=== PATIENT | female | born 1960 | race Hispanic/Latino ===

== ENCOUNTER 2023-06-21 12:56 | Emergency (ER) | payer SELFPAY ==
--- OUTSIDE RECORDS SUMMARY | 2023-06-21 13:04 | XMS REPORT | Continuity of Care Document ---
:1960 Author Organization [facility] t Address [address] [facility] [address] [place] [address] Care Team Providers Name Role Phone Alea Carmichael Primary Care Physician TEMITOPE TRONCOSO Attending Clinician Unavailable SHAHZAD MUELLER Attending Clinician Unavailable WALE ROMERO Attending Clinician Unavailable Ada Cuba MA Attending Clinician Unavailable Maximino Manning MA Attending Clinician Unavailable Guerda Montaño MA Attending Clinician Unavailable Rylee Davila LVN Attending Clinician Unavailable 1, Utp Interventional Consult Attending Clinician UnavailDotty Reece LVN Attending Clinician Unavailable Yaakov THAYER, Provider Not In Attending Clinician Unavailable Alea Carmichael Attending Clinician Temitope Troncoso MD Admitting Clinician Payers Payer Name Policy Type Policy Number Effective Date Expiration Date Cami KULKARNI [id number] 2020 2024 HEALTH PLAN 00:00:00 00:00:00 Problems Condition Condition Condition Status Onset Resolution Last Treating Co mments Source Name Details Category Date Date Treatment Clinician Date GAIT GAIT Diagnosis Active 2021-01-31 Mem oria DIFFICULTY DIFFICULTY 01-28 09:16:00 l Active 00:00: Glen 01/28/2021 00 [facility] CIDP CIDP Diagnosis Active 2020-11-21 Mem oria EXACERBATI EXACERBATI 11-07 21:54:00 l ON ON Active 00:00: Glen 11/07/2020 00 [facility] No known No known Disease [place] active active Health problems problems ILLNESS, ILLNESS, Diagnosis Active 2020-11-21 Memoria UNSPECIFIE UNSPECIFIE 21:54:00 l D D Active [facility] Hyperchole Hyperchole Problem Active C ommon steremia steremia [facility] External External Problem Active Commo n hemorrhoid hemorrhoid Sp milagros [facility] History of History of Diagnosis Active Common hysterecto hysterecto Sp milagros my my [facility] Language Language Problem Active Commo n barrier barrier [facility] Well woman Well woman Diagnosis Active Common exam with exam with Spir it routine [facility] gynecologi gynecologi [facility] virgilio exam virgilio exam [facility] Allergies, Adverse Reactions, Alerts Allergy Allergy Status Severity Reaction(s) Onset Inactive Treating Comm ents Source Name Type Date Date Clinician Penicill Propensi Active ins - ty to 8 CLASS adverse 00:00: reaction 00 to drug Penicill Allergy Active Itching Also, [facility] ins to 01-01 Swelling Health substanc 00:00: and Hives e 00 PCN Adverse Active Info Not Common Reaction Available Spiri t [facility] Social History Social Habit Start Date Stop Date Quantity Comments Source Sexual orientation [facility] Exposure to 2022-10-18 2022-10-28 Not sure [facility] SARS-CoV-2 (event) 00:00:00 14:08:00 History of Social 2022-07-01 2022-07-01 [facility] function 00:00:00 00:00:00 Alcohol intake 2021-04-12 2021-04-12 Lifetime [facility] 00:00:00 00:00:00 non-drinker (finding) Tobacco use and 2021-01-01 2021-01-01 Smokeless tobacco [facility] exposure 00:00:00 00:00:00 non-user Sex Assigned At [birth year] [facility] 00:[facility] 00:00:00 Smoking Status Start Date Stop Date Source Tobacco smoking consumption unknown [facility] Never smoked tobacco [facility] Medications Ordered Filled Start Stop Current Ordering Indication Dosage Frequency Signature Comments Components Source Medication Medication Date Date Medication? Clinician (SIG) Name Name pantoprazol 2022- No 40mg Take 40 mg UT e 04-28 by mouth 1 Health (ProtoNix) 22:53: 00:00 (one) time 40 MG EC 38 :00 each day tablet before breakfast. cetirizine Yes 10mg QD Take 10 mg U T (ZyrTEC) 10 9- by mouth 1 He alth MG tablet 13:38: (one) time 18 each day. traMADol Yes [id number] 50mg QD Take 1 UT (Ultram) 50 04-28 tablet (50 He alth MG tablet 00:00: mg total) 00 by mouth 1 (one) time each day. pregabalin Yes [id number] 150mg Q.[id number] Take 1 UT (Lyrica) 04-28 [id number] capsule He alth 150 MG 00:00: 3D (150 mg capsule 00 total) by mouth in the morning and 1 capsule (150 mg total) at noon and 1 capsule (150 mg total) in the evening. pantoprazol Yes [id number] 40mg Take 1 UT e 04-28 tablet (40 Health (ProtoNix) 00:00: mg total) 40 MG EC 00 by mouth 1 tablet (one) time each day before breakfast. Take 40 mg by mouth 1 (one) time each day before breakfast. pregabalin 2022- No [id number] 150mg Q.[id number] Take 1 UT (Lyrica) 12-25 [id number] capsule H ealth 150 MG 00:00: 00:00 3D (150 mg capsule 00 :00 total) by mouth in the morning and 1 capsule (150 mg total) at noon and 1 capsule (150 mg total) in the evening. cetirizine Yes 10mg QD Take 10 mg U T (ZyrTEC) 10 3-28 by mouth 1 He alth MG tablet 14:18: (one) time 46 each day. traMADol 2021-08 Yes [id number] 50mg QD Take 1 UT (Ultram) 50 1-29 tablet (50 He alth MG tablet 00:00: mg total) 00 by mouth 1 (one) time each day. traMADol 2021-08- No [id number] 50mg QD Take 1 UT (Ultram) 50 1-29 09-26 tablet (50 H ealth MG tablet 00:00: 00:00 mg total) 00 :00 by mouth 1 (one) time each day. pregabalin 2021-08 Yes [id number] TAKE ONE UT (Lyrica) 1-23 CAPSULE BY Healt h 150 MG 00:00: MOUTH capsule 00 THREE TIMES A DAY pantoprazol Yes 40mg Take 40 mg UT e 03-11 by mouth 1 Health (ProtoNix) 14:13: (one) time 40 MG EC 54 each day tablet before breakfast. Do not crush, chew, or split. traMADol 2021- No Take by UT (Ultram) 50 03-11- mouth. Healt h MG tablet 14:13: 00:00 42 :00 predniSONE 2021- No 20mg QD Take 20 mg UT (Deltasone) 03-11 by mouth 1 H ealth 20 MG 14:13: 00:00 (one) time tablet 24 :00 each day. cyclobenzap 2021- No Take by UT rine 03-11- mouth. Health (Flexeril) 14:13: 00:00 5 MG tablet 12 :00 doxycycline 2021- No 100mg Q.5D Take 100 UT (Vibramycin 03-11- mg by Health ) 100 MG 14:13: 00:00 mouth 2 capsule 09 :00 (two) times a day. Take with at least 8 ounces (large glass) of water, do not lie down for 30 minutes after FLUoxetine 2021- No 20mg QD Take 20 mg UT (PROzac) 20 03-11 by mouth 1 H ealth MG capsule 14:13: 00:00 (one) time 06 :00 each day. meloxicam 2021- No 7.5mg QD Take 7.5 UT (Mobic) 7.5 03-11- mg by Health MG tablet 14:13: 00:00 mouth 1 03 :00 (one) time each day. ibuprofen 2021- No 400mg Q6H Take 400 UT 400 MG 03-11-09 mg by Health tablet 14:12: 00:00 mouth 57 :00 every 6 (six) hours if needed for moderate pain. montelukast 2021- No 10mg Take 10 mg UT (Singulair) 03-11 by mouth Hea lth 10 MG 14:12: 00:00 every tablet 53 :00 night. ALPRAZolam 2021- No .5mg QD Take 0.5 UT (Xanax) 0.5 03-11 mg by Health MG tablet 14:12: 00:00 mouth at 29 :00 night if needed for anxiety. atorvastati 2021- No 40mg QD Take 40 mg UT n (Lipitor) 03-11 by mouth 1 H ealth 10 MG 14:12: 00:00 (one) time tablet 26 :00 each day. acetaminoph 2021- No Q6H Take by UT en 03-11 mouth Health (Tylenol) 14:12: 00:00 every 6 500 MG 01 :00 (six) tablet hours if needed for mild pain. traMADol 2021- No [id number] 50mg QD Take 1 U T (Ultram) 50 02-06- tablet (50 H ealth MG tablet 00:00: 04:59 mg total) 00 :00 by mouth 1 (one) time each day. traMADol 2021- No [id number] 50mg QD Take 1 U T (Ultram) 50 02-06-06 tablet (50 H ealth MG tablet 00:00: 04:59 mg total) 00 :00 by mouth 1 (one) time each day. doxycycline 2021-0 Yes 100mg Q.5D Take 100 U T (Vibramycin 5-24 mg by Health ) 100 MG 08:50: mouth 2 capsule 18 (two) times a day. Take with at least 8 ounces (large glass) of water, do not lie down for 30 minutes after ibuprofen 2021-0 Yes 400mg Q6H Take 400 UT 400 MG 5-24 mg by Health tablet 08:50: mouth 18 every 6 (six) hours if needed for moderate pain. pantoprazol 2021-0 Yes 40mg Take 40 mg UT e 5-24 by mouth 1 Health (ProtoNix) 08:50: (one) time 40 MG EC 18 each day tablet before breakfast. Do not crush, chew, or split. montelukast 2021-0 Yes 10mg Take 10 mg UT (Singulair) 5-24 by mouth Heal th 10 MG 08:50: every tablet 18 night. cyclobenzap 2021-0 Yes Take by UT rine 5-24 mouth. Health (Flexeril) 08:50: 5 MG tablet 18 FLUoxetine 2021-0 Yes 20mg QD Take 20 mg U T (PROzac) 20 5-24 by mouth 1 He alth MG capsule 08:50: (one) time 18 each day. meloxicam 2021-0 Yes 7.5mg QD Take 7.5 UT (Mobic) 7.5 5-24 mg by Health MG tablet 08:50: mouth 1 18 (one) time each day. atorvastati 2021-0 Yes 40mg QD Take 40 mg UT n (Lipitor) 5-24 by mouth 1 He alth 10 MG 08:50: (one) time tablet 18 each day. predniSONE 2021-0 Yes 20mg QD Take 20 mg U T (Deltasone) 5-24 by mouth 1 He alth 20 MG 08:49: (one) time tablet 15 each day. acetaminoph 2021-0 Yes Q6H Take by UT en 5-24 mouth Health (Tylenol) 08:49: every 6 500 MG 15 (six) tablet hours if needed for mild pain. traMADol 2021-0 Yes Take by UT (Ultram) 50 5-24 mouth. Health MG tablet 08:49: 15 ALPRAZolam 2021-0 Yes .5mg QD Take 0.5 UT (Xanax) 0.5 5-03 mg by Health MG tablet 14:43: mouth at 39 night if needed for anxiety. pregabalin 2021-0 2022- No [id number] 150mg Q.[id number] Take 1 UT (Lyrica) 3-26 09-23 [id number] capsule H ealth 150 MG 00:00: 04:59 3D (150 mg capsule 00 :00 total) by mouth 3 (three) times a day. pregabalin 2021- No [id number] 150mg Q.[id number] Take 1 UT (Lyrica) 3 0923 [id number] capsule H ealth 150 MG 00:00: 04:59 3D (150 mg capsule 00 :00 total) by mouth 3 (three) times a day. Dose No Unknown 1-27 00:00: 00 Vitamin D3 No 1(2,000 50 mcg 1-27 unit) (2,000 00:00: unit) 00 tablet Vitamin D3 No 1(1,000 25 mcg 1-26 unit) (1,000 00:00: unit) 00 capsule Vitamin D3 No 1(1,000 25 mcg 1-26 unit) (1,000 00:00: unit) 00 capsule Dose No Unknown 1-24 00:00: 00 atorvastati No 1mg n 40 mg 1-24 tablet 00:00: 00 pregabalin 0 Yes 75mg QD Take 75 mg U T (Lyrica) 75 9-08 by mouth 1 He alth MG capsule 15:04: (one) time 08 each day. gabapentin Yes 300mg Q.5D Take 300 UT (Neurontin) 9-08 mg by Health 300 MG 15:04: mouth 2 capsule 08 (two) times a day. meloxicam Yes 7.5mg QD Take 7.5 UT (Mobic) 7.5 9-08 mg by Health MG tablet 15:04: mouth 1 08 (one) time each day. No known No No known [facility] medications 9-08 medication He alth 10:04: s 10 pregabalin 0 Yes 75mg QD Take 75 mg U T (Lyrica) 75 9-08 by mouth 1 He alth MG capsule 10:04: (one) time 08 each day. gabapentin 0 Yes 300mg Q.5D Take 300 UT (Neurontin) 9-08 mg by Health 300 MG 10:04: mouth 2 capsule 08 (two) times a day. meloxicam 2021-0 Yes 7.5mg QD Take 7.5 UT (Mobic) 7.5 9-08 mg by Health MG tablet 10:04: mouth 1 08 (one) time each day. acetaminoph 2021-0 Yes Q6H Take by UT en 9-08 mouth Health (Tylenol) 10:04: every 6 500 MG 08 (six) tablet hours if needed for mild pain. traMADol 2021-0 Yes Take by UT (Ultram) 50 9-08 mouth. Health MG tablet 10:04: 08 atorvastati 2021-0 Yes 40mg QD Take 40 mg UT n (Lipitor) 9-08 by mouth 1 He alth 10 MG 10:04: (one) time tablet 08 each day. pregabalin 2021-0 Yes 75mg QD Take 75 mg U T (Lyrica) 75 9-08 by mouth 1 He alth MG capsule 10:04: (one) time 08 each day. gabapentin 2021-0 Yes 300mg Q.5D Take 300 UT (Neurontin) 9-08 mg by Health 300 MG 10:04: mouth 2 capsule 08 (two) times a day. meloxicam 2021-0 Yes 7.5mg QD Take 7.5 UT (Mobic) 7.5 9-08 mg by Health MG tablet 10:04: mouth 1 08 (one) time each day. acetaminoph 2021-0 Yes Q6H Take by UT en 9-08 mouth Health (Tylenol) 10:04: every 6 500 MG 08 (six) tablet hours if needed for mild pain. traMADol 1-0 Yes Take by UT (Ultram) 50 9-08 mouth. Health MG tablet 10:04: 08 atorvastati 2021-0 Yes 40mg QD Take 40 mg UT n (Lipitor) 9-08 by mouth 1 He alth 10 MG 10:04: (one) time tablet 08 each day. pregabalin 2021-0 Yes 75mg QD Take 75 mg U T (Lyrica) 75 9-08 by mouth 1 He alth MG capsule 10:04: (one) time 08 each day. gabapentin 2021-0 Yes 300mg Q.5D Take 300 UT (Neurontin) 9-08 mg by Health 300 MG 10:04: mouth 2 capsule 08 (two) times a day. meloxicam 2021-0 Yes 7.5mg QD Take 7.5 UT (Mobic) 7.5 9-08 mg by Health MG tablet 10:04: mouth 1 08 (one) time each day. acetaminoph 2021-0 Yes Q6H Take by UT en 9-08 mouth Health (Tylenol) 10:04: every 6 500 MG 08 (six) tablet hours if needed for mild pain. traMADol 2021-0 Yes Take by UT (Ultram) 50 9-08 mouth. Health MG tablet 10:04: 08 atorvastati 2021-0 Yes 40mg QD Take 40 mg UT n (Lipitor) 9-08 by mouth 1 He alth 10 MG 10:04: (one) time tablet 08 each day. pregabalin 2021-0 Yes 75mg QD Take 75 mg U T (Lyrica) 75 9-08 by mouth 1 He alth MG capsule 10:04: (one) time 08 each day. gabapentin 2021-0 Yes 300mg Q.5D Take 300 UT (Neurontin) 9-08 mg by Health 300 MG 10:04: mouth 2 capsule 08 (two) times a day. meloxicam 2021-0 Yes 7.5mg QD Take 7.5 UT (Mobic) 7.5 9-08 mg by Health MG tablet 10:04: mouth 1 08 (one) time each day. acetaminoph 2021-0 Yes Q6H Take by UT en 9-08 mouth Health (Tylenol) 10:04: every 6 500 MG 08 (six) tablet hours if needed for mild pain. traMADol 1-0 Yes Take by UT (Ultram) 50 9-08 mouth. Health MG tablet 10:04: 08 atorvastati 2021-0 Yes 40mg QD Take 40 mg UT n (Lipitor) 9-08 by mouth 1 He alth 10 MG 10:04: (one) time tablet 08 each day. pregabalin 2021-0 Yes 75mg QD Take 75 mg U T (Lyrica) 75 9-08 by mouth 1 He alth MG capsule 10:04: (one) time 08 each day. gabapentin 2021-0 Yes 300mg Q.5D Take 300 UT (Neurontin) 9-08 mg by Health 300 MG 10:04: mouth 2 capsule 08 (two) times a day. meloxicam 2021-0 Yes 7.5mg QD Take 7.5 UT (Mobic) 7.5 9-08 mg by Health MG tablet 10:04: mouth 1 08 (one) time each day. acetaminoph 2021-0 Yes Q6H Take by UT en 9-08 mouth Health (Tylenol) 10:04: every 6 500 MG 08 (six) tablet hours if needed for mild pain. traMADol 2021-0 Yes Take by UT (Ultram) 50 9-08 mouth. Health MG tablet 10:04: 08 atorvastati 2021-0 Yes 40mg QD Take 40 mg UT n (Lipitor) 9-08 by mouth 1 He alth 10 MG 10:04: (one) time tablet 08 each day. pregabalin 2021-0 Yes 75mg QD Take 75 mg U T (Lyrica) 75 9-08 by mouth 1 He alth MG capsule 10:04: (one) time 08 each day. gabapentin 2021-0 Yes 300mg Q.5D Take 300 UT (Neurontin) 9-08 mg by Health 300 MG 10:04: mouth 2 capsule 08 (two) times a day. meloxicam 2021-0 Yes 7.5mg QD Take 7.5 UT (Mobic) 7.5 9-08 mg by Health MG tablet 10:04: mouth 1 08 (one) time each day. acetaminoph 2021-0 Yes Q6H Take by UT en 9-08 mouth Health (Tylenol) 10:04: every 6 500 MG 08 (six) tablet hours if needed for mild pain. traMADol 2021-0 Yes Take by UT (Ultram) 50 9-08 mouth. Health MG tablet 10:04: 08 atorvastati 2021-0 Yes 40mg QD Take 40 mg UT n (Lipitor) 9-08 by mouth 1 He alth 10 MG 10:04: (one) time tablet 08 each day. pregabalin 2021-0 Yes 75mg QD Take 75 mg U T (Lyrica) 75 9-08 by mouth 1 He alth MG capsule 10:04: (one) time 08 each day. gabapentin 2021-0 Yes 300mg Q.5D Take 300 UT (Neurontin) 9-08 mg by Health 300 MG 10:04: mouth 2 capsule 08 (two) times a day. meloxicam 2021-0 Yes 7.5mg QD Take 7.5 UT (Mobic) 7.5 9-08 mg by Health MG tablet 10:04: mouth 1 08 (one) time each day. acetaminoph 2021-0 Yes Q6H Take by UT en 9-08 mouth Health (Tylenol) 10:04: every 6 500 MG 08 (six) tablet hours if needed for mild pain. traMADol 2021-0 Yes Take by UT (Ultram) 50 9-08 mouth. Health MG tablet 10:04: 08 atorvastati 2021-0 Yes 40mg QD Take 40 mg UT n (Lipitor) 9-08 by mouth 1 He alth 10 MG 10:04: (one) time tablet 08 each day. pregabalin 2021-0 Yes 75mg QD Take 75 mg U T (Lyrica) 75 9-08 by mouth 1 He alth MG capsule 10:04: (one) time 08 each day. gabapentin 2021-0 Yes 300mg Q.5D Take 300 UT (Neurontin) 9-08 mg by Health 300 MG 10:04: mouth 2 capsule 08 (two) times a day. meloxicam 2021-0 Yes 7.5mg QD Take 7.5 UT (Mobic) 7.5 9-08 mg by Health MG tablet 10:04: mouth 1 08 (one) time each day. acetaminoph 2021-0 Yes Q6H Take by UT en 9-08 mouth Health (Tylenol) 10:04: every 6 500 MG 08 (six) tablet hours if needed for mild pain. traMADol 1-0 Yes Take by UT (Ultram) 50 9-08 mouth. Health MG tablet 10:04: 08 atorvastati 2021-0 Yes 40mg QD Take 40 mg UT n (Lipitor) 9-08 by mouth 1 He alth 10 MG 10:04: (one) time tablet 08 each day. pregabalin 2021-0 Yes 75mg QD Take 75 mg U T (Lyrica) 75 9-08 by mouth 1 He alth MG capsule 10:04: (one) time 08 each day. gabapentin 2021-0 Yes 300mg Q.5D Take 300 UT (Neurontin) 9-08 mg by Health 300 MG 10:04: mouth 2 capsule 08 (two) times a day. meloxicam 2021-0 Yes 7.5mg QD Take 7.5 UT (Mobic) 7.5 9-08 mg by Health MG tablet 10:04: mouth 1 08 (one) time each day. acetaminoph 2021-0 Yes Q6H Take by UT en 9-08 mouth Health (Tylenol) 10:04: every 6 500 MG 08 (six) tablet hours if needed for mild pain. traMADol 2021-0 Yes Take by UT (Ultram) 50 9-08 mouth. Health MG tablet 10:04: 08 atorvastati 2021-0 Yes 40mg QD Take 40 mg UT n (Lipitor) 9-08 by mouth 1 He alth 10 MG 10:04: (one) time tablet 08 each day. pregabalin 2021-0 Yes 75mg QD Take 75 mg U T (Lyrica) 75 9-08 by mouth 1 He alth MG capsule 10:04: (one) time 08 each day. gabapentin 2021-0 Yes 300mg Q.5D Take 300 UT (Neurontin) 9-08 mg by Health 300 MG 10:04: mouth 2 capsule 08 (two) times a day. meloxicam 2021-0 Yes 7.5mg QD Take 7.5 UT (Mobic) 7.5 9-08 mg by Health MG tablet 10:04: mouth 1 08 (one) time each day. acetaminoph 2021-0 Yes Q6H Take by UT en 9-08 mouth Health (Tylenol) 10:04: every 6 500 MG 08 (six) tablet hours if needed for mild pain. traMADol 2021-0 Yes Take by UT (Ultram) 50 9-08 mouth. Health MG tablet 10:04: 08 atorvastati 2021-0 Yes 40mg QD Take 40 mg UT n (Lipitor) 9-08 by mouth 1 He alth 10 MG 10:04: (one) time tablet 08 each day. pregabalin 2021-0 Yes 75mg QD Take 75 mg U T (Lyrica) 75 9-08 by mouth 1 He alth MG capsule 10:04: (one) time 08 each day. gabapentin 2021-0 Yes 300mg Q.5D Take 300 UT (Neurontin) 9-08 mg by Health 300 MG 10:04: mouth 2 capsule 08 (two) times a day. meloxicam 2021-0 Yes 7.5mg QD Take 7.5 UT (Mobic) 7.5 9-08 mg by Health MG tablet 10:04: mouth 1 08 (one) time each day. acetaminoph 2021-0 Yes Q6H Take by UT en 9-08 mouth Health (Tylenol) 10:04: every 6 500 MG 08 (six) tablet hours if needed for mild pain. traMADol 2021-0 Yes Take by UT (Ultram) 50 9-08 mouth. Health MG tablet 10:04: 08 atorvastati 2021-0 Yes 40mg QD Take 40 mg UT n (Lipitor) 9-08 by mouth 1 He alth 10 MG 10:04: (one) time tablet 08 each day. pregabalin 2021-0 Yes 75mg QD Take 75 mg U T (Lyrica) 75 9-08 by mouth 1 He alth MG capsule 10:04: (one) time 08 each day. gabapentin 2021-0 Yes 300mg Q.5D Take 300 UT (Neurontin) 9-08 mg by Health 300 MG 10:04: mouth 2 capsule 08 (two) times a day. meloxicam 2021-0 Yes 7.5mg QD Take 7.5 UT (Mobic) 7.5 9-08 mg by Health MG tablet 10:04: mouth 1 08 (one) time each day. pregabalin 2021-0 Yes 75mg QD Take 75 mg U T (Lyrica) 75 9-08 by mouth 1 He alth MG capsule 10:04: (one) time 08 each day. gabapentin 2021-0 Yes 300mg Q.5D Take 300 UT (Neurontin) 9-08 mg by Health 300 MG 10:04: mouth 2 capsule 08 (two) times a day. meloxicam 2021-0 Yes 7.5mg QD Take 7.5 UT (Mobic) 7.5 9-08 mg by Health MG tablet 10:04: mouth 1 08 (one) time each day. pregabalin 2021-0 Yes 75mg QD Take 75 mg U T (Lyrica) 75 9-08 by mouth 1 He alth MG capsule 10:04: (one) time 08 each day. pregabalin 2021-0 Yes 75mg QD Take 75 mg U T (Lyrica) 75 9-08 by mouth 1 He alth MG capsule 10:04: (one) time 08 each day. gabapentin 2021-0 Yes 300mg Q.5D Take 300 UT (Neurontin) 9-08 mg by Health 300 MG 10:04: mouth 2 capsule 08 (two) times a day. gabapentin 2021-0 Yes 300mg Q.5D Take 300 UT (Neurontin) 9-08 mg by Health 300 MG 10:04: mouth 2 capsule 08 (two) times a day. meloxicam 2021-0 Yes 7.5mg QD Take 7.5 UT (Mobic) 7.5 9-08 mg by Health MG tablet 10:04: mouth 1 08 (one) time each day. pregabalin 2021-0 Yes 75mg QD Take 75 mg U T (Lyrica) 75 9-08 by mouth 1 He alth MG capsule 10:04: (one) time 08 each day. gabapentin 2021-0 Yes 300mg Q.5D Take 300 UT (Neurontin) 9-08 mg by Health 300 MG 10:04: mouth 2 capsule 08 (two) times a day. meloxicam 2021-0 Yes 7.5mg QD Take 7.5 UT (Mobic) 7.5 9-08 mg by Health MG tablet 10:04: mouth 1 08 (one) time each day. pregabalin 2021-0 Yes 75mg QD Take 75 mg U T (Lyrica) 75 9-08 by mouth 1 He alth MG capsule 10:04: (one) time 08 each day. gabapentin 2021-0 Yes 300mg Q.5D Take 300 UT (Neurontin) 9-08 mg by Health 300 MG 10:04: mouth 2 capsule 08 (two) times a day. meloxicam 2021-0 Yes 7.5mg QD Take 7.5 UT (Mobic) 7.5 9-08 mg by Health MG tablet 10:04: mouth 1 08 (one) time each day. meloxicam 2021-0 Yes 7.5mg QD Take 7.5 UT (Mobic) 7.5 9-08 mg by Health MG tablet 10:04: mouth 1 08 (one) time each day. pregabalin 2021-0 Yes 75mg QD Take 75 mg U T (Lyrica) 75 9-08 by mouth 1 He alth MG capsule 10:04: (one) time 08 each day. gabapentin 2021-0 Yes 300mg Q.5D Take 300 UT (Neurontin) 9-08 mg by Health 300 MG 10:04: mouth 2 capsule 08 (two) times a day. acetaminoph 2021-0 Yes Q6H Take by UT en 9-08 mouth Health (Tylenol) 10:04: every 6 500 MG 08 (six) tablet hours if needed for mild pain. meloxicam 2021-0 Yes 7.5mg QD Take 7.5 UT (Mobic) 7.5 9-08 mg by Health MG tablet 10:04: mouth 1 08 (one) time each day. traMADol 2021-0 Yes Take by UT (Ultram) 50 9-08 mouth. Health MG tablet 10:04: 08 pregabalin 2021-0 Yes 75mg QD Take 75 mg U T (Lyrica) 75 9-08 by mouth 1 He alth MG capsule 10:04: (one) time 08 each day. gabapentin 2021-0 Yes 300mg Q.5D Take 300 UT (Neurontin) 9-08 mg by Health 300 MG 10:04: mouth 2 capsule 08 (two) times a day. meloxicam 2021-0 Yes 7.5mg QD Take 7.5 UT (Mobic) 7.5 9-08 mg by Health MG tablet 10:04: mouth 1 08 (one) time each day. atorvastati 2021-0 Yes 40mg QD Take 40 mg UT n (Lipitor) 9-08 by mouth 1 He alth 10 MG 10:04: (one) time tablet 08 each day. pregabalin 2021-0 Yes 75mg QD Take 75 mg U T (Lyrica) 75 9-08 by mouth 1 He alth MG capsule 10:04: (one) time 08 each day. gabapentin 2021-0 Yes 300mg Q.5D Take 300 UT (Neurontin) 9-08 mg by Health 300 MG 10:04: mouth 2 capsule 08 (two) times a day. meloxicam 2021-0 Yes 7.5mg QD Take 7.5 UT (Mobic) 7.5 9-08 mg by Health MG tablet 10:04: mouth 1 08 (one) time each day. acetaminoph 2021-0 Yes Q6H Take by UT en 9-08 mouth Health (Tylenol) 10:04: every 6 500 MG 08 (six) tablet hours if needed for mild pain. traMADol 2021-0 Yes Take by UT (Ultram) 50 9-08 mouth. Health MG tablet 10:04: 08 atorvastati 2021-0 Yes 40mg QD Take 40 mg UT n (Lipitor) 9-08 by mouth 1 He alth 10 MG 10:04: (one) time tablet 08 each day. pregabalin 2021-0 Yes 75mg QD Take 75 mg U T (Lyrica) 75 9-08 by mouth 1 He alth MG capsule 10:04: (one) time 08 each day. gabapentin 2021-0 Yes 300mg Q.5D Take 300 UT (Neurontin) 9-08 mg by Health 300 MG 10:04: mouth 2 capsule 08 (two) times a day. meloxicam 2021-0 Yes 7.5mg QD Take 7.5 UT (Mobic) 7.5 9-08 mg by Health MG tablet 10:04: mouth 1 08 (one) time each day. acetaminoph 2021-0 Yes Q6H Take by UT en 9-08 mouth Health (Tylenol) 10:04: every 6 500 MG 08 (six) tablet hours if needed for mild pain. traMADol 2021-0 Yes Take by UT (Ultram) 50 9-08 mouth. Health MG tablet 10:04: 08 atorvastati 1-0 Yes 40mg QD Take 40 mg UT n (Lipitor) -08 by mouth 1 He alth 10 MG 10:04: (one) time tablet 08 each day. pregabalin 2021-0 Yes 75mg QD Take 75 mg U T (Lyrica) 75 9-08 by mouth 1 He alth MG capsule 10:04: (one) time 08 each day. gabapentin 2021-0 Yes 300mg Q.5D Take 300 UT (Neurontin) 9-08 mg by Health 300 MG 10:04: mouth 2 capsule 08 (two) times a day. meloxicam 2021-0 Yes 7.5mg QD Take 7.5 UT (Mobic) 7.5 9-08 mg by Health MG tablet 10:04: mouth 1 08 (one) time each day. acetaminoph 2021-0 Yes Q6H Take by UT en 9-08 mouth Health (Tylenol) 10:04: every 6 500 MG 08 (six) tablet hours if needed for mild pain. traMADol 2021-0 Yes Take by UT (Ultram) 50 9-08 mouth. Health MG tablet 10:04: 08 atorvastati 2021-0 Yes 40mg QD Take 40 mg UT n (Lipitor) 9-08 by mouth 1 He alth 10 MG 10:04: (one) time tablet 08 each day. pregabalin 2021-0 Yes 75mg QD Take 75 mg U T (Lyrica) 75 9-08 by mouth 1 He alth MG capsule 10:04: (one) time 08 each day. gabapentin 2021-0 Yes 300mg Q.5D Take 300 UT (Neurontin) 9-08 mg by Health 300 MG 10:04: mouth 2 capsule 08 (two) times a day. meloxicam 2021-0 Yes 7.5mg QD Take 7.5 UT (Mobic) 7.5 9-08 mg by [facility] MG tablet 10:04: mouth 1 08 (one) time each day. acetaminoph 2021-0 Yes Q6H Take by [facility] en 9-08 mouth [facility] (Tylenol) 10:04: every 6 500 MG 08 (six) tablet hours if needed for mild pain. traMADol 2021-0 Yes Take by [facility] (Ultram) 50 9-08 mouth. Health MG tablet 10:04: 08 atorvastati 2021-0 Yes 40mg QD Take 40 mg [facility] n (Lipitor) 9-08 by mouth 1 He alth 10 MG 10:04: (one) time tablet 08 each day. pregabalin 2021-0 Yes 75mg QD Take 75 mg [facility] (Lyrica) 75 9-08 by mouth 1 He alth MG capsule 10:04: (one) time 08 each day. gabapentin 2021-0 Yes 300mg Q.5D Take 300 [facility] (Neurontin) 9-08 mg by [facility] 300 MG 10:04: mouth 2 capsule 08 (two) times a day. meloxicam 2021-0 Yes 7.5mg QD Take 7.5 [facility] (Mobic) 7.5 9-08 mg by [facility] MG tablet 10:04: mouth 1 08 (one) time each day. acetaminoph 2021-0 Yes Q6H Take by [facility] en 9-08 mouth [facility] (Tylenol) 10:04: every 6 500 MG 08 (six) tablet hours if needed for mild pain. traMADol 2021-0 Yes Take by [facility] (Ultram) 50 9-08 mouth. Health MG tablet 10:04: 08 atorvastati 2021-0 Yes 40mg QD Take 40 mg [facility] (Lipitor) 9-08 by mouth 1 [facility] alth 10 MG 10:04: (one) time tablet 08 each day. pregabalin 2021-0 Yes 75mg QD Take 75 mg [facility] (Lyrica) 75 9-08 by mouth 1 [facility] al[facility] MG capsule 10:04: (one) time 08 each day. gabapentin 2021-0 Yes 300mg Q.5D Take 300 [facility] (Neurontin) 9-08 mg by [facility] 300 MG 10:04: mouth 2 capsule 08 (two) times a day. meloxicam 2021-0 Yes 7.5mg QD Take 7.5 [facility] (Mobic) 7.5 9-08 mg by [facility] MG tablet 10:04: mouth 1 08 (one) time each day. acetaminoph 2021-0 Yes Q6H Take by [facility] en 9-08 mouth [facility] (Tylenol) 10:04: every 6 500 MG 08 (six) tablet hours if needed for mild pain. traMADol 2020-0 Yes Take by [facility] (Ultram) 50 9-08 mouth. Health MG tablet 10:04: 08 atorvastati 2020-0 Yes 40mg QD Take 40 mg [facility] n (Lipitor) 9-08 by mouth 1 [facility] alth 10 MG 10:04: (one) time tablet 08 each day. pregabalin 202-0 Yes 75mg QD Take 75 mg [facility] (Lyrica) 75 9-08 by mouth 1 [facility] alth MG capsule 10:04: (one) time 08 each day. gabapentin 202-0 Yes 300mg Q.5D Take 300 [facility] (Neurontin) 9-08 mg by [facility] 300 MG 10:04: mouth 2 capsule 08 (two) times a day. meloxicam 202-0 Yes 7.5mg QD Take 7.5 [facility] (Mobic) 7.5 9-08 mg by [facility] MG tablet 10:04: mouth 1 08 (one) time each day. acetaminoph 2021-0 Yes Q6H Take by [facility] en 9-08 mouth [facility] (Tylenol) 10:04: every 6 500 MG 08 (six) tablet hours if needed for mild pain. traMADol 2021-0 Yes Take by [facility] (Ultram) 50 9-08 mouth. [facility] MG tablet 10:04: 08 atorvastati 2021-0 Yes 40mg QD Take 40 mg [facility] (Lipitor) 9-08 by mouth 1 [facility] alth 10 MG 10:04: (one) time tablet 08 each day. pregabalin 2021-0 Yes 75mg QD Take 75 mg [facility] (Lyrica) 75 9-08 by mouth 1 [facility] al[facility] MG capsule 10:04: (one) time 08 each day. gabapentin 2021-0 Yes 300mg Q.5D Take 300 [facility] (Neurontin) 9-08 mg by [facility] 300 MG 10:04: mouth 2 capsule 08 (two) times a day. meloxicam 2021-0 Yes 7.5mg QD Take 7.5 [facility] (Mobic) 7.5 9-08 mg by [facility] MG tablet 10:04: mouth 1 08 (one) time each day. acetaminoph 2021-0 Yes Q6H Take by [facility] en 9-08 mouth [facility] (Tylenol) 10:04: every 6 500 MG 08 (six) tablet hours if needed for mild pain. traMADol 2021-0 Yes Take by [facility] (Ultram) 50 9-08 mouth. [facility] MG tablet 10:04: 08 atorvastati 1-0 Yes 40mg QD Take 40 mg [facility] (Lipitor) 9-08 by mouth 1 [facility] alth 10 MG 10:04: (one) time tablet 08 each day. pregabalin 2021-0 Yes 75mg QD Take 75 mg [facility] (Lyrica) 75 9-08 by mouth 1 [facility] al[facility] MG capsule 10:04: (one) time 08 each day. gabapentin 2021-0 Yes 300mg Q.5D Take 300 [facility] (Neurontin) 9-08 mg by [facility] 300 MG 10:04: mouth 2 capsule 08 (two) times a day. meloxicam 2021-0 Yes 7.5mg QD Take 7.5 [facility] (Mobic) 7.5 9-08 mg by [facility] MG tablet 10:04: mouth 1 08 (one) time each day. acetaminoph 2021-0 Yes Q6H Take by [facility] en 9-08 mouth [facility] (Tylenol) 10:04: every 6 500 MG 08 (six) tablet hours if needed for mild pain. traMADol 2021-0 Yes Take by [facility] (Ultram) 50 9-08 mouth. Health MG tablet 10:04: 08 atorvastati 2021-0 Yes 40mg QD Take 40 mg [facility] (Lipitor) 9-08 by mouth 1 [facility] alth 10 MG 10:04: (one) time tablet 08 each day. Dose 2020-0 No Unknown 02-24 00:00: 00 Vitamin D3 2020-0 No 1(1,000 25 mcg 7-25 unit) (1,000 00:00: unit) 00 capsule atorvastati 2020-0 No 1mg n 40 mg 7-19 tablet 00:00: 00 meloxicam 1-0 No 1mg 7.5 mg 7-19 tablet 00:00: 00 tramadol 50 1-0 No 1mg mg tablet 02-18 00:00: 00 tramadol 50 1-0 No 1mg mg tablet 02-18 00:00: 00 meloxicam 1-0 No 1mg 7.5 mg 7-19 tablet 00:00: 00 atorvastati 1-0 No 1mg n 40 mg 7-19 tablet 00:00: 00 pantoprazol 1-0 No 1mg e 40 mg 7-19 tablet,natalie 00:00: yed release 00 atorvastati 1-0 No 1mg n 40 mg 7-19 tablet 00:00: 00 meloxicam 1-0 No 1mg 7.5 mg 7-19 tablet 00:00: 00 tramadol 50 1-0 No 1mg mg tablet 02-18 00:00: 00 tramadol 50 1-0 No 1mg mg tablet 02-18 00:00: 00 meloxicam 2021-0 No 1mg 7.5 mg 7-19 tablet 00:00: 00 Dose 1-0 No Unknown 02-18 00:00: 00 pantoprazol 1-0 No 1mg e 40 mg 7-19 tablet,natalie 00:00: yed release 00 tramadol 50 1-0 No 1mg mg tablet 02-18 00:00: 00 meloxicam 2021-0 No 1mg 7.5 mg 7-19 tablet 00:00: 00 tramadol 50 1-0 No 1mg mg tablet 02-18 00:00: 00 atorvastati 2021-0 No 1mg n 40 mg 7-19 tablet 00:00: 00 pantoprazol 1-0 No 1mg e 40 mg 7-19 tablet,natalie 00:00: yed release 00 Lyrica 150 1-0 No 1mg mg capsule 02-18 00:00: 00 Lyrica 150 1-0 No 1mg mg capsule 02-18 00:00: 00 Lyrica 150 1-0 No 1mg mg capsule 02-18 00:00: 00 Rituxan 10 1-0 No 1mg/mL mg/mL 02-18 concentrate 00:00: ,intravenou 00 s Rituxan 10 2020-0 No 1mg/mL mg/mL 02-18 concentrate 00:00: ,intravenou 00 s Rituxan 10 2020-0 No 1mg/mL mg/mL 02-18 concentrate 00:00: ,intravenou 00 s meloxicam 1-0 No 1mg 7.5 mg 02-18 tablet 00:00: 00 atorvastati 1-0 No 1mg n 40 mg 02-18 tablet 00:00: 00 pantoprazol 1-0 No 1mg e 40 mg 02-18 tablet,natalie 00:00: yed release 00 Lyrica 150 1-0 No 1mg mg capsule 02-18 00:00: 00 Lyrica 150 1-0 No 1mg mg capsule 02-18 00:00: 00 Lyrica 150 1-0 No 1mg mg capsule 02-18 00:00: 00 Rituxan 10 1-0 No 1mg/mL mg/mL 02-18 concentrate 00:00: ,intravenou 00 s Rituxan 10 2020-0 No 1mg/mL mg/mL 02-18 concentrate 00:00: ,intravenou 00 s Rituxan 10 2020-0 No 1mg/mL mg/mL 02-18 concentrate 00:00: ,intravenou 00 s atorvastati 1-0 Yes 40mg Take 40 mg [facility] (Lipitor) - by mouth [facility]al [facility] 40 MG 00:00: every tablet 00 night. atorvastati 1-0 Yes 40mg Take 40 mg [facility] (Lipitor) - by mouth [facility]al [facility] 40 MG 00:00: every tablet 00 night. atorvastati 1-0 Yes 80mg Take 80 mg [facility] (Lipitor) - by mouth [facility]al [facility] 40 MG 00:00: every tablet 00 night. atorvastati 0 Yes 80mg Take 80 mg [facility] (Lipitor) 7-06 by mouth [facility]al [facility] 40 MG 00:00: every tablet 00 night. pregabalin 0 Yes [id number] Take by [facility] (Lyrica) 01-09 [id number] mouth 3 He alth 100 MG 00:00: 3D (three) capsule 00 times a day. pregabalin 0 2022- No [id number] Take by [facility] (Lyrica) 01-09 08- [id number] mouth 3 H ealth 100 MG 00:00: 00:00 3D (three) capsule 00 :00 times a day. doxycycline 0 Yes 100mg Q.5D Take 100 [facility] (Vibramycin 6-01 mg by Health ) 100 MG 20:45: mouth 2 capsule 26 (two) times a day. Take with at least 8 ounces (large glass) of water, do not lie down for 30 minutes after ibuprofen 0 Yes 400mg Q6H Take 400 [facility] 400 MG 6-01 mg by [facility] tablet 20:45: mouth 26 every 6 (six) hours if needed for moderate pain. pantoprazol Yes 40mg Take 40 mg [facility] e 01-01 by mouth 1 Health (ProtoNix) 20:45: (one) time 40 MG EC 26 each day tablet before breakfast. Do not crush, chew, or split. predniSONE 0 Yes 20mg QD Take 20 mg [facility] (Deltasone) 01-01 by mouth 1 [facility] alth 20 MG 20:45: (one) time tablet 26 each day. montelukast 0 Yes 10mg Take 10 mg [facility] (Singulair) 601 by mouth [facility]al [facility] 10 MG 20:45: every tablet 26 night. cyclobenzap Yes Take by [facility] 6-01 mouth. [facility] (Flexeril) 20:45: 5 MG tablet 26 ALPRAZolam 0 Yes .5mg QD Take 0.5 [facility] (Xanax) 0.5 6-01 mg by [facility] MG tablet 20:45: mouth at 26 night if needed for anxiety. FLUoxetine 0 Yes 20mg QD Take 20 mg [facility] (PROzac) 20 6-01 by mouth 1 [facility] alth MG capsule 20:45: (one) time 26 each day. predniSONE 2020-0 Yes 20mg QD Take 20 mg [facility] (Deltasone) 6-01 by mouth 1 [facility] alth 20 MG 15:45: (one) time tablet 26 each day. montelukast 2020-0 Yes 10mg Take 10 mg [facility] (Singulair) 6-01 by mouth [facility]al th 10 MG 15:45: every tablet 26 night. cyclobenzap 2020-0 Yes Take by [facility] rine 6-01 mouth. [facility] (Flexeril) 15:45: 5 MG tablet 26 ALPRAZolam 2020-0 Yes .5mg QD Take 0.5 [facility] (Xanax) 0.5 6-01 mg by [facility] MG tablet 15:45: mouth at 26 night if needed for anxiety. FLUoxetine 2020-0 Yes 20mg QD Take 20 mg [facility] (PROzac) 20 - by mouth 1 [facility] al[facility] MG capsule 15:45: (one) time 26 each day. doxycycline 2020-0 Yes 100mg Q.5D Take 100 [facility] (Vibramycin 6-01 mg by [employer] ) 100 MG 15:45: mouth 2 capsule 26 (two) times a day. Take with at least 8 ounces (large glass) of water, do not lie down for 30 minutes after ibuprofen 2020-0 Yes 400mg Q6H Take 400 [facility] 400 MG 6-01 mg by [facility] tablet 15:45: mouth 26 every 6 (six) hours if needed for moderate pain. pantoprazol 0 Yes 40mg Take 40 mg [facility] e 6- by mouth 1 Health (ProtoNix) 15:45: (one) time 40 MG EC 26 each day tablet before breakfast. Do not crush, chew, or split. predniSONE 2020-0 Yes 20mg QD Take 20 mg [facility] (Deltasone) 6-01 by mouth 1 [facility] alth 20 MG 15:45: (one) time tablet 26 each day. montelukast 2020-0 Yes 10mg Take 10 mg [facility] (Singulair) 6-01 by mouth [facility]al [facility] 10 MG 15:45: every tablet 26 night. cyclobenzap 2020-0 Yes Take by [facility] rine 6-01 mouth. [facility] (Flexeril) 15:45: 5 MG tablet 26 ALPRAZolam 2020-0 Yes .5mg QD Take 0.5 [facility] (Xanax) 0.5 6-01 mg by [facility] MG tablet 15:45: mouth at 26 night if needed for anxiety. FLUoxetine 2020-0 Yes 20mg QD Take 20 mg [facility] (PROzac) 20 6-01 by mouth 1 [facility] alth MG capsule 15:45: (one) time 26 each day. doxycycline 2020-0 Yes 100mg Q.5D Take 100 [facility] (Vibramycin 6-01 mg by Health ) 100 MG 15:45: mouth 2 capsule 26 (two) times a day. Take with at least 8 ounces (large glass) of water, do not lie down for 30 minutes after ibuprofen 2020-0 Yes 400mg Q6H Take 400 [facility] 400 MG 6-01 mg by [facility] tablet 15:45: mouth 26 every 6 (six) hours if needed for moderate pain. pantoprazol 0 Yes 40mg Take 40 mg [facility] e 6-01 by mouth 1 [facility] (ProtoNix) 15:45: (one) time 40 MG EC 26 each day tablet before breakfast. Do not crush, chew, or split. predniSONE 2020-0 Yes 20mg QD Take 20 mg [facility] (Deltasone) 6-01 by mouth 1 [facility] alth 20 MG 15:45: (one) time tablet 26 each day. montelukast 0 Yes 10mg Take 10 mg [facility] (Singulair) 6-01 by mouth [facility]al [facility] 10 MG 15:45: every tablet 26 night. cyclobenzap 0 Yes Take by [facility] rine 6-01 mouth. [facility] (Flexeril) 15:45: 5 MG tablet 26 ALPRAZolam 2020-0 Yes .5mg QD Take 0.5 [facility] (Xanax) 0.5 6-01 mg by [facility] MG tablet 15:45: mouth at 26 night if needed for anxiety. FLUoxetine 2020-0 Yes 20mg QD Take 20 mg [facility] T (PROzac) 20 6-01 by mouth 1 He alth MG capsule 15:45: (one) time 26 each day. doxycycline 2020-0 Yes 100mg Q.5D Take 100 [facility] (Vibramycin 6-01 mg by Health ) 100 MG 15:45: mouth 2 capsule 26 (two) times a day. Take with at least 8 ounces (large glass) of water, do not lie down for 30 minutes after ibuprofen 2020-0 Yes 400mg Q6H Take 400 [facility] 400 MG 6-01 mg by [facility] tablet 15:45: mouth 26 every 6 (six) hours if needed for moderate pain. pantoprazol 2020-0 Yes 40mg Take 40 mg [facility] e 6-01 by mouth 1 Health (ProtoNix) 15:45: (one) time 40 MG EC 26 each day tablet before breakfast. Do not crush, chew, or split. predniSONE 2021-0 Yes 20mg QD Take 20 mg [facility] T (Deltasone) 6-01 by mouth 1 [facility] alth 20 MG 15:45: (one) time tablet 26 each day. montelukast 2020-0 Yes 10mg Take 10 mg [facility] (Singulair) 6-01 by mouth [facility]al th 10 MG 15:45: every tablet 26 night. cyclobenzap 2020-0 Yes Take by [facility] rine 6-01 mouth. [facility] (Flexeril) 15:45: 5 MG tablet 26 ALPRAZolam 2020-0 Yes .5mg QD Take 0.5 [facility] (Xanax) 0.5 6-01 mg by Health MG tablet 15:45: mouth at 26 night if needed for anxiety. FLUoxetine 2020-0 Yes 20mg QD Take 20 mg [facility] T (PROzac) 20 6-01 by mouth 1 [facility] alth MG capsule 15:45: (one) time 26 each day. doxycycline 2020-0 Yes 100mg Q.5D Take 100 [facility] (Vibramycin 6-01 mg by Health ) 100 MG 15:45: mouth 2 capsule 26 (two) times a day. Take with at least 8 ounces (large glass) of water, do not lie down for 30 minutes after ibuprofen 2020-0 Yes 400mg Q6H Take 400 UT 400 MG 6-01 mg by [facility] tablet 15:45: mouth 26 every 6 (six) hours if needed for moderate pain. pantoprazol 2020-0 Yes 40mg Take 40 mg [facility] e 6-01 by mouth 1 Health (ProtoNix) 15:45: (one) time 40 MG EC 26 each day tablet before breakfast. Do not crush, chew, or split. predniSONE 2021-0 Yes 20mg QD Take 20 mg [facility] T (Deltasone) 6-01 by mouth 1 He alth 20 MG 15:45: (one) time tablet 26 each day. montelukast 0 Yes 10mg Take 10 mg [facility] (Singulair) 6-01 by mouth [facility]al th 10 MG 15:45: every tablet 26 night. cyclobenzap 0 Yes Take by [facility] rine 6-01 mouth. [facility] (Flexeril) 15:45: 5 MG tablet 26 ALPRAZolam 0 Yes .5mg QD Take 0.5 UT (Xanax) 0.5 6-01 mg by Health MG tablet 15:45: mouth at 26 night if needed for anxiety. FLUoxetine 2020-0 Yes 20mg QD Take 20 mg [facility] T (PROzac) 20 6-01 by mouth 1 He alth MG capsule 15:45: (one) time 26 each day. doxycycline 2020-0 Yes 100mg Q.5D Take 100 [facility] (Vibramycin 6-01 mg by Health ) 100 MG 15:45: mouth 2 capsule 26 (two) times a day. Take with at least 8 ounces (large glass) of water, do not lie down for 30 minutes after ibuprofen 0 Yes 400mg Q6H Take 400 UT 400 MG 6-01 mg by [facility] tablet 15:45: mouth 26 every 6 (six) hours if needed for moderate pain. pantoprazol 0 Yes 40mg Take 40 mg [facility] e 6-01 by mouth 1 Health (ProtoNix) 15:45: (one) time 40 MG EC 26 each day tablet before breakfast. Do not crush, chew, or split. predniSONE 2020-0 Yes 20mg QD Take 20 mg [facility] T (Deltasone) 6-01 by mouth 1 [facility] alth 20 MG 15:45: (one) time tablet 26 each day. montelukast 0 Yes 10mg Take 10 mg [facility] (Singulair) 6-01 by mouth [facility]al th 10 MG 15:45: every tablet 26 night. cyclobenzap 0 Yes Take by [facility] rine 6-01 mouth. Health (Flexeril) 15:45: 5 MG tablet 26 ALPRAZolam 0 Yes .5mg QD Take 0.5 UT (Xanax) 0.5 6-01 mg by Health MG tablet 15:45: mouth at 26 night if needed for anxiety. FLUoxetine 2020-0 Yes 20mg QD Take 20 mg [facility] T (PROzac) 20 6-01 by mouth 1 He alth MG capsule 15:45: (one) time 26 each day. doxycycline 2020-0 Yes 100mg Q.5D Take 100 [facility] (Vibramycin 6-01 mg by Health ) 100 MG 15:45: mouth 2 capsule 26 (two) times a day. Take with at least 8 ounces (large glass) of water, do not lie down for 30 minutes after ibuprofen 2020-0 Yes 400mg Q6H Take 400 [facility] 400 MG 6-01 mg by [facility] tablet 15:45: mouth 26 every 6 (six) hours if needed for moderate pain. pantoprazol 0 Yes 40mg Take 40 mg [facility] e 6-01 by mouth 1 Health (ProtoNix) 15:45: (one) time 40 MG EC 26 each day tablet before breakfast. Do not crush, chew, or split. predniSONE 0 Yes 20mg QD Take 20 mg [facility] T (Deltasone) 6-01 by mouth 1 He alth 20 MG 15:45: (one) time tablet 26 each day. montelukast 0 Yes 10mg Take 10 mg [facility] (Singulair) 6-01 by mouth [facility]al th 10 MG 15:45: every tablet 26 night. cyclobenzap 0 Yes Take by [facility] rine 6-01 mouth. Health (Flexeril) 15:45: 5 MG tablet 26 ALPRAZolam 0 Yes .5mg QD Take 0.5 [facility] (Xanax) 0.5 6-01 mg by Health MG tablet 15:45: mouth at 26 night if needed for anxiety. FLUoxetine 0 Yes 20mg QD Take 20 mg [facility] T (PROzac) 20 6-01 by mouth 1 He alth MG capsule 15:45: (one) time 26 each day. doxycycline 202-0 Yes 100mg Q.5D Take 100 [facility] T (Vibramycin 6-01 mg by [employer] ) 100 MG 15:45: mouth 2 capsule 26 (two) times a day. Take with at least 8 ounces (large glass) of water, do not lie down for 30 minutes after ibuprofen 2020-0 Yes 400mg Q6H Take 400 UT 400 MG 6-01 mg by Health tablet 15:45: mouth 26 every 6 (six) hours if needed for moderate pain. pantoprazol 2020-0 Yes 40mg Take 40 mg UT e 6-01 by mouth 1 Health (ProtoNix) 15:45: (one) time 40 MG EC 26 each day tablet before breakfast. Do not crush, chew, or split. predniSONE 2020-0 Yes 20mg QD Take 20 mg [facility] T (Deltasone) 6-01 by mouth 1 He alth 20 MG 15:45: (one) time tablet 26 each day. montelukast 2020-0 Yes 10mg Take 10 mg [facility] (Singulair) 6-01 by mouth Heal th 10 MG 15:45: every tablet 26 night. cyclobenzap 2020-0 Yes Take by [facility] rine 6-01 mouth. Health (Flexeril) 15:45: 5 MG tablet 26 ALPRAZolam 0 Yes .5mg QD Take 0.5 UT (Xanax) 0.5 6-01 mg by [facility] MG tablet 15:45: mouth at 26 night if needed for anxiety. FLUoxetine 2020-0 Yes 20mg QD Take 20 mg U T (PROzac) 20 6- by mouth 1 He alth MG capsule 15:45: (one) time 26 each day. doxycycline 0 Yes 100mg Q.5D Take 100 U T (Vibramycin 6-01 mg by [facility] ) 100 MG 15:45: mouth 2 capsule 26 (two) times a day. Take with at least 8 ounces (large glass) of water, do not lie down for 30 minutes after ibuprofen 2020-0 Yes 400mg Q6H Take 400 UT 400 MG 6-01 mg by Health tablet 15:45: mouth 26 every 6 (six) hours if needed for moderate pain. pantoprazol 0 Yes 40mg Take 40 mg UT e 6-01 by mouth 1 Health (ProtoNix) 15:45: (one) time 40 MG EC 26 each day tablet before breakfast. Do not crush, chew, or split. predniSONE 2020-0 Yes 20mg QD Take 20 mg U T (Deltasone) 6-01 by mouth 1 He alth 20 MG 15:45: (one) time tablet 26 each day. montelukast 2020-0 Yes 10mg Take 10 mg [facility] (Singulair) 6-01 by mouth Heal th 10 MG 15:45: every tablet 26 night. cyclobenzap 2020-0 Yes Take by [facility] rine 6-01 mouth. Health (Flexeril) 15:45: 5 MG tablet 26 ALPRAZolam 0 Yes .5mg QD Take 0.5 UT (Xanax) 0.5 6-01 mg by Health MG tablet 15:45: mouth at 26 night if needed for anxiety. FLUoxetine 0 Yes 20mg QD Take 20 mg U T (PROzac) 20 601 by mouth 1 He alth MG capsule 15:45: (one) time 26 each day. doxycycline 0 Yes 100mg Q.5D Take 100 U T (Vibramycin 6-01 mg by [employer] ) 100 MG 15:45: mouth 2 capsule 26 (two) times a day. Take with at least 8 ounces (large glass) of water, do not lie down for 30 minutes after ibuprofen 0 Yes 400mg Q6H Take 400 UT 400 MG 6-01 mg by Health tablet 15:45: mouth 26 every 6 (six) hours if needed for moderate pain. pantoprazol 0 Yes 40mg Take 40 mg UT e 6 by mouth 1 Health (ProtoNix) 15:45: (one) time 40 MG EC 26 each day tablet before breakfast. Do not crush, chew, or split. predniSONE 0 Yes 20mg QD Take 20 mg U T (Deltasone) 01-01 by mouth 1 He alth 20 MG 15:45: (one) time tablet 26 each day. montelukast 0 Yes 10mg Take 10 mg [facility] (Singulair) 6-01 by mouth Heal th 10 MG 15:45: every tablet 26 night. cyclobenzap Yes Take by [facility] rine 6-01 mouth. Health (Flexeril) 15:45: 5 MG tablet 26 ALPRAZolam 0 Yes .5mg QD Take 0.5 UT (Xanax) 0.5 6-01 mg by Health MG tablet 15:45: mouth at 26 night if needed for anxiety. FLUoxetine 0 Yes 20mg QD Take 20 mg U T (PROzac) 20 6-01 by mouth 1 He alth MG capsule 15:45: (one) time 26 each day. doxycycline 2020-0 Yes 100mg Q.5D Take 100 [facility] T (Vibramycin 6-01 mg by Health ) 100 MG 15:45: mouth 2 capsule 26 (two) times a day. Take with at least 8 ounces (large glass) of water, do not lie down for 30 minutes after ibuprofen 2020-0 Yes 400mg Q6H Take 400 UT 400 MG 6-01 mg by Health tablet 15:45: mouth 26 every 6 (six) hours if needed for moderate pain. pantoprazol 2020-0 Yes 40mg Take 40 mg UT e 6-01 by mouth 1 Health (ProtoNix) 15:45: (one) time 40 MG EC 26 each day tablet before breakfast. Do not crush, chew, or split. predniSONE 2020-0 Yes 20mg QD Take 20 mg U T (Deltasone) 6-01 by mouth 1 He alth 20 MG 15:45: (one) time tablet 26 each day. montelukast 2020-0 Yes 10mg Take 10 mg [facility] (Singulair) 6-01 by mouth Heal th 10 MG 15:45: every tablet 26 night. cyclobenzap 0 Yes Take by [facility] rine 6-01 mouth. Health (Flexeril) 15:45: 5 MG tablet 26 ALPRAZolam 2020-0 Yes .5mg QD Take 0.5 UT (Xanax) 0.5 6-01 mg by Health MG tablet 15:45: mouth at 26 night if needed for anxiety. FLUoxetine 2020-0 Yes 20mg QD Take 20 mg U T (PROzac) 20 6-01 by mouth 1 He alth MG capsule 15:45: (one) time 26 each day. doxycycline 2020-0 Yes 100mg Q.5D Take 100 U T (Vibramycin 6-01 mg by Health ) 100 MG 15:45: mouth 2 capsule 26 (two) times a day. Take with at least 8 ounces (large glass) of water, do not lie down for 30 minutes after ibuprofen 202-0 Yes 400mg Q6H Take 400 UT 400 MG 6-01 mg by Health tablet 15:45: mouth 26 every 6 (six) hours if needed for moderate pain. pantoprazol 2020-0 Yes 40mg Take 40 mg UT e 6-01 by mouth 1 Health (ProtoNix) 15:45: (one) time 40 MG EC 26 each day tablet before breakfast. Do not crush, chew, or split. predniSONE 2020-0 Yes 20mg QD Take 20 mg U T (Deltasone) 6-01 by mouth 1 He alth 20 MG 15:45: (one) time tablet 26 each day. montelukast 0 Yes 10mg Take 10 mg UT (Singulair) 6-01 by mouth Heal th 10 MG 15:45: every tablet 26 night. cyclobenzap 0 Yes Take by [facility] rine 6-01 mouth. Health (Flexeril) 15:45: 5 MG tablet 26 ALPRAZolam 0 Yes .5mg QD Take 0.5 UT (Xanax) 0.5 6-01 mg by Health MG tablet 15:45: mouth at 26 night if needed for anxiety. FLUoxetine 0 Yes 20mg QD Take 20 mg U T (PROzac) 20 6-01 by mouth 1 He alth MG capsule 15:45: (one) time 26 each day. doxycycline 0 Yes 100mg Q.5D Take 100 U T (Vibramycin 6-01 mg by [employer] ) 100 MG 15:45: mouth 2 capsule 26 (two) times a day. Take with at least 8 ounces (large glass) of water, do not lie down for 30 minutes after ibuprofen 2020-0 Yes 400mg Q6H Take 400 UT 400 MG 6-01 mg by Health tablet 15:45: mouth 26 every 6 (six) hours if needed for moderate pain. pantoprazol 0 Yes 40mg Take 40 mg UT e 6-01 by mouth 1 Health ([employer]) 15:45: (one) time 40 MG EC 26 each day tablet before breakfast. Do not crush, chew, or split. predniSONE 2020-0 Yes 20mg QD Take 20 mg U T (Deltasone) 6-01 by mouth 1 He alth 20 MG 15:45: (one) time tablet 26 each day. doxycycline 2020-0 Yes 100mg Q.5D Take 100 U T (Vibramycin 6-01 mg by [employer] ) 100 MG 15:45: mouth 2 capsule 26 (two) times a day. Take with at least 8 ounces (large glass) of water, do not lie down for 30 minutes after montelukast 2020-0 Yes 10mg Take 10 mg UT (Singulair) 6-01 by mouth Heal th 10 MG 15:45: every tablet 26 night. cyclobenzap 0 Yes Take by [facility] rine 6-01 mouth. Health (Flexeril) 15:45: 5 MG tablet 26 ALPRAZolam 0 Yes .5mg QD Take 0.5 UT (Xanax) 0.5 6-01 mg by Health MG tablet 15:45: mouth at 26 night if needed for anxiety. FLUoxetine 2020-0 Yes 20mg QD Take 20 mg U T (PROzac) 20 6-01 by mouth 1 He alth MG capsule 15:45: (one) time 26 each day. ibuprofen 2020-0 Yes 400mg Q6H Take 400 UT 400 MG 6-01 mg by Health tablet 15:45: mouth 26 every 6 (six) hours if needed for moderate pain. doxycycline 0 Yes 100mg Q.5D Take 100 U T (Vibramycin 6-01 mg by Health ) 100 MG 15:45: mouth 2 capsule 26 (two) times a day. Take with at least 8 ounces (large glass) of water, do not lie down for 30 minutes after ibuprofen 0 Yes 400mg Q6H Take 400 UT 400 MG 6-01 mg by Health tablet 15:45: mouth 26 every 6 (six) hours if needed for moderate pain. pantoprazol 0 Yes 40mg Take 40 mg UT e 6-01 by mouth 1 Health ([employer]) 15:45: (one) time 40 MG EC 26 each day tablet before breakfast. Do not crush, chew, or split. predniSONE 0 Yes 20mg QD Take 20 mg U T (Deltasone) 6-01 by mouth 1 He alth 20 MG 15:45: (one) time tablet 26 each day. montelukast 0 Yes 10mg Take 10 mg UT (Singulair) 6-01 by mouth Heal th 10 MG 15:45: every tablet 26 night. cyclobenzap 0 Yes Take by UT rine 6-01 mouth. Health (Flexeril) 15:45: 5 MG tablet 26 pantoprazol 2020-0 Yes 40mg Take 40 mg UT e 6-01 by mouth 1 Health ([employer]) 15:45: (one) time 40 MG EC 26 each day tablet before breakfast. Do not crush, chew, or split. ALPRAZolam 0 Yes .5mg QD Take 0.5 UT (Xanax) 0.5 6-01 mg by Health MG tablet 15:45: mouth at 26 night if needed for anxiety. FLUoxetine 0 Yes 20mg QD Take 20 mg U T (PROzac) 20 6-01 by mouth 1 He alth MG capsule 15:45: (one) time 26 each day. predniSONE 0 Yes 20mg QD Take 20 mg U T (Deltasone) 6-01 by mouth 1 He alth 20 MG 15:45: (one) time tablet 26 each day. doxycycline 0 Yes 100mg Q.5D Take 100 U T (Vibramycin 6-01 mg by Health ) 100 MG 15:45: mouth 2 capsule 26 (two) times a day. Take with at least 8 ounces (large glass) of water, do not lie down for 30 minutes after ibuprofen 0 Yes 400mg Q6H Take 400 UT 400 MG 6-01 mg by Health tablet 15:45: mouth 26 every 6 (six) hours if needed for moderate pain. pantoprazol Yes 40mg Take 40 mg UT e 6-01 by mouth 1 Health (ProtoNix) 15:45: (one) time 40 MG EC 26 each day tablet before breakfast. Do not crush, chew, or split. predniSONE Yes 20mg QD Take 20 mg U T (Deltasone) 6-01 by mouth 1 He alth 20 MG 15:45: (one) time tablet 26 each day. montelukast Yes 10mg Take 10 mg UT (Singulair) 6-01 by mouth Heal th 10 MG 15:45: every tablet 26 night. cyclobenzap Yes Take by UT rine 6-01 mouth. Health (Flexeril) 15:45: 5 MG tablet 26 ALPRAZolam 0 Yes .5mg QD Take 0.5 UT (Xanax) 0.5 6-01 mg by Health MG tablet 15:45: mouth at 26 night if needed for anxiety. montelukast 0 Yes 10mg Take 10 mg [facility] (Singulair) 6-01 by mouth [facility] 10 MG 15:45: every tablet 26 night. FLUoxetine 0 Yes 20mg QD Take 20 mg [facility] (PROzac) 20 6-01 by mouth 1 [facility] MG capsule 15:45: (one) time 26 each day. doxycycline 202-0 Yes 100mg Q.5D Take 100 [facility] (Vibramycin 6-01 mg by [facility] ) 100 MG 15:45: mouth 2 capsule 26 (two) times a day. Take with at least 8 ounces (large glass) of water, do not lie down for 30 minutes after ibuprofen 2020-0 Yes 400mg Q6H Take 400 [facility] 400 MG 6-01 mg by [facility] tablet 15:45: mouth 26 every 6 (six) hours if needed for moderate pain. pantoprazol 2020-0 Yes 40mg Take 40 mg [facility] e 6-01 by mouth 1 [facility] (ProtoNix) 15:45: (one) time 40 MG EC 26 each day tablet before breakfast. Do not crush, chew, or split. predniSONE 2020-0 Yes 20mg QD Take 20 mg [facility] (Deltasone) 6-01 by mouth 1 [facility] al[facility] 20 MG 15:45: (one) time tablet 26 each day. montelukast 2020-0 Yes 10mg Take 10 mg [facility] (Singulair) 6-01 by mouth [facility] 10 MG 15:45: every tablet 26 night. cyclobenzap 0 Yes Take by [facility]ine 6-01 mouth. [facility] (Flexeril) 15:45: 5 MG tablet 26 cyclobenzap 2020-0 Yes Take by [facility]ine 6-01 mouth. [facility] (Flexeril) 15:45: 5 MG tablet 26 ALPRAZolam 0 Yes .5mg QD Take 0.5 [facility] (Xanax) 0.5 6-01 mg by [facility] MG tablet 15:45: mouth at 26 night if needed for anxiety. FLUoxetine 2020-0 Yes 20mg QD Take 20 mg [facility] T (PROzac) 20 6-01 by mouth 1 [facility] MG capsule 15:45: (one) time 26 each day. doxycycline 202-0 Yes 100mg Q.5D Take 100 [facility] (Vibramycin 6-01 mg by [facility] ) 100 MG 15:45: mouth 2 capsule 26 (two) times a day. Take with at least 8 ounces (large glass) of water, do not lie down for 30 minutes after ibuprofen 2020-0 Yes 400mg Q6H Take 400 [facility] 400 MG 6-01 mg by [facility] tablet 15:45: mouth 26 every 6 (six) hours if needed for moderate pain. pantoprazol 2020-0 Yes 40mg Take 40 mg [facility] e 6-01 by mouth 1 [facility] (ProtoNix) 15:45: (one) time 40 MG EC 26 each day tablet before breakfast. Do not crush, chew, or split. predniSONE 2020-0 Yes 20mg QD Take 20 mg [facility] T (Deltasone) 6-01 by mouth 1 [facility] 20 MG 15:45: (one) time tablet 26 each day. montelukast 2020-0 Yes 10mg Take 10 mg [facility] (Singulair) 6-01 by mouth [facility] 10 MG 15:45: every tablet 26 night. cyclobenzap 0 Yes Take by [facility] rine 6-01 mouth. [facility] (Flexeril) 15:45: 5 MG tablet 26 ALPRAZolam 0 Yes .5mg QD Take 0.5 [facility] (Xanax) 0.5 6-01 mg by [facility] MG tablet 15:45: mouth at 26 night if needed for anxiety. FLUoxetine 0 Yes 20mg QD Take 20 mg [facility] T (PROzac) 20 6-01 by mouth 1 [facility] MG capsule 15:45: (one) time 26 each day. doxycycline 0 Yes 100mg Q.5D Take 100 [facility] (Vibramycin 6-01 mg by [facility] ) 100 MG 15:45: mouth 2 capsule 26 (two) times a day. Take with at least 8 ounces (large glass) of water, do not lie down for 30 minutes after ibuprofen 2020-0 Yes 400mg Q6H Take 400 [facility] 400 MG 6-01 mg by [facility] tablet 15:45: mouth 26 every 6 (six) hours if needed for moderate pain. pantoprazol 0 Yes 40mg Take 40 mg [facility] e 6-01 by mouth 1 [facility] (ProtoNix) 15:45: (one) time 40 MG EC 26 each day tablet before breakfast. Do not crush, chew, or split. predniSONE 2020-0 Yes 20mg QD Take 20 mg [facility] (Deltasone) 6-01 by mouth 1 [facility] 20 MG 15:45: (one) time tablet 26 each day. montelukast 2020-0 Yes 10mg Take 10 mg [facility] (Singulair) 6-01 by mouth [facility] 10 MG 15:45: every tablet 26 night. cyclobenzap 0 Yes Take by [facility] rine 6-01 mouth. [facility] (Flexeril) 15:45: 5 MG tablet 26 ALPRAZolam 0 Yes .5mg QD Take 0.5 [facility] (Xanax) 0.5 6-01 mg by [facility] MG tablet 15:45: mouth at 26 night if needed for anxiety. ALPRAZolam 2020-0 Yes .5mg QD Take 0.5 [facility] (Xanax) 0.5 6-01 mg by [facility] MG tablet 15:45: mouth at 26 night if needed for anxiety. FLUoxetine 0 Yes 20mg QD Take 20 mg [facility] (PROzac) 20 6-01 by mouth 1 [facility] MG capsule 15:45: (one) time 26 each day. doxycycline 0 Yes 100mg Q.5D Take 100 [facility] (Vibramycin 6-01 mg by [facility] ) 100 MG 15:45: mouth 2 capsule 26 (two) times a day. Take with at least 8 ounces (large glass) of water, do not lie down for 30 minutes after ibuprofen 2020-0 Yes 400mg Q6H Take 400 [facility] 400 MG 6-01 mg by [facility] tablet 15:45: mouth 26 every 6 (six) hours if needed for moderate pain. pantoprazol 0 Yes 40mg Take 40 mg [facility] e 601 by mouth 1 [facility] (ProtoNix) 15:45: (one) time 40 MG EC 26 each day tablet before breakfast. Do not crush, chew, or split. predniSONE 2020-0 Yes 20mg QD Take 20 mg [facility] (Deltasone) 6-01 by mouth 1 [facility] 20 MG 15:45: (one) time tablet 26 each day. FLUoxetine 0 Yes 20mg QD Take 20 mg [facility] (PROzac) 20 6-01 by mouth 1 [facility] MG capsule 15:45: (one) time 26 each day. montelukast 0 Yes 10mg Take 10 mg [facility] (Singulair) 6-01 by mouth [facility] 10 MG 15:45: every tablet 26 night. cyclobenzap 0 Yes Take by [facility] rine 6-01 mouth. [facility] (Flexeril) 15:45: 5 MG tablet 26 ALPRAZolam 0 Yes .5mg QD Take 0.5 [facility] (Xanax) 0.5 6-01 mg by [facility] MG tablet 15:45: mouth at 26 night if needed for anxiety. FLUoxetine 0 Yes 20mg QD Take 20 mg [facility] (PROzac) 20 6-01 by mouth 1 [facility] MG capsule 15:45: (one) time 26 each day. doxycycline 0 Yes 100mg Q.5D Take 100 [facility] (Vibramycin 6-01 mg by [facility] ) 100 MG 15:45: mouth 2 capsule 26 (two) times a day. Take with at least 8 ounces (large glass) of water, do not lie down for 30 minutes after ibuprofen 0 Yes 400mg Q6H Take 400 [facility] 400 MG 6-01 mg by [facility] tablet 15:45: mouth 26 every 6 (six) hours if needed for moderate pain. pantoprazol Yes 40mg Take 40 mg [facility] e 601 by mouth 1 [facility] (ProtoNix) 15:45: (one) time 40 MG EC 26 each day tablet before breakfast. Do not crush, chew, or split. predniSONE 0 Yes 20mg QD Take 20 mg [facility] (Deltasone) 6-01 by mouth 1 [facility] 20 MG 15:45: (one) time tablet 26 each day. montelukast 0 Yes 10mg Take 10 mg [facility] (Singulair) 6-01 by mouth [facility] 10 MG 15:45: every tablet 26 night. cyclobenzap Yes Take by [facility] rine 6-01 mouth. [facility] (Flexeril) 15:45: 5 MG tablet 26 ALPRAZolam Yes .5mg QD Take 0.5 [facility] (Xanax) 0.5 6-01 mg by [facility] MG tablet 15:45: mouth at 26 night if needed for anxiety. FLUoxetine 0 Yes 20mg QD Take 20 mg [facility] T (PROzac) 20 -01 by mouth 1 [facility] MG capsule 15:45: (one) time 26 each day. doxycycline 2020-0 Yes 100mg Q.5D Take 100 [facility] (Vibramycin 6-01 mg by [facility] ) 100 MG 15:45: mouth 2 capsule 26 (two) times a day. Take with at least 8 ounces (large glass) of water, do not lie down for 30 minutes after ibuprofen 2020-0 Yes 400mg Q6H Take 400 [facility] 400 MG 6-01 mg by [facility] tablet 15:45: mouth 26 every 6 (six) hours if needed for moderate pain. pantoprazol 2020-0 Yes 40mg Take 40 mg [facility] e 6-01 by mouth 1 [facility] (ProtoNix) 15:45: (one) time 40 MG EC 26 each day tablet before breakfast. Do not crush, chew, or split. predniSONE 2020-0 Yes 20mg QD Take 20 mg [facility] (Deltasone) 6-01 by mouth 1 [facility] 20 MG 15:45: (one) time tablet 26 each day. montelukast 2020-0 Yes 10mg Take 10 mg [facility] (Singulair) 6-01 by mouth [facility] 10 MG 15:45: every tablet 26 night. cyclobenzap 2020-0 Yes Take by [facility] rine 6-01 mouth. [facility] (Flexeril) 15:45: 5 MG tablet 26 ALPRAZolam 0 Yes .5mg QD Take 0.5 [facility] (Xanax) 0.5 6-01 mg by [facility] MG tablet 15:45: mouth at 26 night if needed for anxiety. FLUoxetine 2020-0 Yes 20mg QD Take 20 mg [facility] T (PROzac) 20 6-01 by mouth 1 [facility] al[facility] MG capsule 15:45: (one) time 26 each day. doxycycline 2020-0 Yes 100mg Q.5D Take 100 [facility] (Vibramycin 6-01 mg by [facility] ) 100 MG 15:45: mouth 2 capsule 26 (two) times a day. Take with at least 8 ounces (large glass) of water, do not lie down for 30 minutes after ibuprofen 2020-0 Yes 400mg Q6H Take 400 [facility] 400 MG 6-01 mg by [facility] tablet 15:45: mouth 26 every 6 (six) hours if needed for moderate pain. pantoprazol 2020-0 Yes 40mg Take 40 mg [facility] e 6-01 by mouth 1 [facility] (ProtoNix) 15:45: (one) time 40 MG EC 26 each day tablet before breakfast. Do not crush, chew, or split. predniSONE 2020-0 Yes 20mg QD Take 20 mg [facility] (Deltasone) 6-01 by mouth 1 [facility] 20 MG 15:45: (one) time tablet 26 each day. montelukast 2021-0 Yes 10mg Take 10 mg [facility] (Singulair) 6-01 by mouth [facility] 10 MG 15:45: every tablet 26 night. cyclobenzap 0 Yes Take by [facility]ine 6-01 mouth. [facility] (Flexeril) 15:45: 5 MG tablet 26 ALPRAZolam 0 Yes .5mg QD Take 0.5 [facility] (Xanax) 0.5 6-01 mg by [facility] MG tablet 15:45: mouth at 26 night if needed for anxiety. FLUoxetine 2020-0 Yes 20mg QD Take 20 mg [facility] T (PROzac) 20 6-01 by mouth 1 [facility] MG capsule 15:45: (one) time 26 each day. doxycycline 2020-0 Yes 100mg Q.5D Take 100 [facility] (Vibramycin 6-01 mg by [facility] ) 100 MG 15:45: mouth 2 capsule 26 (two) times a day. Take with at least 8 ounces (large glass) of water, do not lie down for 30 minutes after ibuprofen 2020-0 Yes 400mg Q6H Take 400 [facility] 400 MG 6-01 mg by [facility] tablet 15:45: mouth 26 every 6 (six) hours if needed for moderate pain. pantoprazol 0 Yes 40mg Take 40 mg [facility] e 6-01 by mouth 1 [facility] (ProtoNix) 15:45: (one) time 40 MG EC 26 each day tablet before breakfast. Do not crush, chew, or split. predniSONE 2020-0 Yes 20mg QD Take 20 mg [facility] T (Deltasone) 6-01 by mouth 1 [facility] al[facility] 20 MG 15:45: (one) time tablet 26 each day. montelukast 0 Yes 10mg Take 10 mg [facility] (Singulair) 6-01 by mouth [facility] 10 MG 15:45: every tablet 26 night. cyclobenzap 2020-0 Yes Take by [facility] rine 6-01 mouth. [facility] (Flexeril) 15:45: 5 MG tablet 26 ALPRAZolam 0 Yes .5mg QD Take 0.5 [facility] (Xanax) 0.5 6-01 mg by [facility] MG tablet 15:45: mouth at 26 night if needed for anxiety. FLUoxetine 2020-0 Yes 20mg QD Take 20 mg [facility] T (PROzac) 20 6-01 by mouth 1 [facility] al[facility] MG capsule 15:45: (one) time 26 each day. doxycycline 2020-0 Yes 100mg Q.5D Take 100 [facility] (Vibramycin 6-01 mg by [facility] ) 100 MG 15:45: mouth 2 capsule 26 (two) times a day. Take with at least 8 ounces (large glass) of water, do not lie down for 30 minutes after ibuprofen 2020-0 Yes 400mg Q6H Take 400 UT 400 MG 6-01 mg by [facility] tablet 15:45: mouth 26 every 6 (six) hours if needed for moderate pain. pantoprazol 2020-0 Yes 40mg Take 40 mg [facility] e 6-01 by mouth 1 [facility] (ProtoNix) 15:45: (one) time 40 MG EC 26 each day tablet before breakfast. Do not crush, chew, or split. predniSONE 2020-0 Yes 20mg QD Take 20 mg [facility] T (Deltasone) - by mouth 1 [facility] 20 MG 15:45: (one) time tablet 26 each day. montelukast 0 Yes 10mg Take 10 mg [facility] (Singulair) 6-01 by mouth [facility] 10 MG 15:45: every tablet 26 night. cyclobenzap 0 Yes Take by [facility] rine 6-01 mouth. [facility] (Flexeril) 15:45: 5 MG tablet 26 ALPRAZolam 0 Yes .5mg QD Take 0.5 [facility] (Xanax) 0.5 6-01 mg by [facility] MG tablet 15:45: mouth at 26 night if needed for anxiety. FLUoxetine 2020-0 Yes 20mg QD Take 20 mg [facility] T (PROzac) 20 01-01 by mouth 1 [facility] MG capsule 15:45: (one) time 26 each day. doxycycline 202-0 Yes 100mg Q.5D Take 100 U T (Vibramycin 6-01 mg by [employer] ) 100 MG 15:45: mouth 2 capsule 26 (two) times a day. Take with at least 8 ounces (large glass) of water, do not lie down for 30 minutes after ibuprofen 2020-0 Yes 400mg Q6H Take 400 [facility] 400 MG 6-01 mg by [facility] tablet 15:45: mouth 26 every 6 (six) hours if needed for moderate pain. pantoprazol 2020-0 Yes 40mg Take 40 mg [facility] e 6-01 by mouth 1 [facility] (ProtoNix) 15:45: (one) time 40 MG EC 26 each day tablet before breakfast. Do not crush, chew, or split. predniSONE 2020-0 Yes 20mg QD Take 20 mg [facility] T (Deltasone) 6-01 by mouth 1 [facility] 20 MG 15:45: (one) time tablet 26 each day. montelukast 2020-0 Yes 10mg Take 10 mg [facility] (Singulair) 6-01 by mouth [facility] 10 MG 15:45: every tablet 26 night. cyclobenzap 2020-0 Yes Take by [facility] rine 6-01 mouth. [facility] (Flexeril) 15:45: 5 MG tablet 26 ALPRAZolam 0 Yes .5mg QD Take 0.5 [facility] (Xanax) 0.5 6-01 mg by [facility] MG tablet 15:45: mouth at 26 night if needed for anxiety. FLUoxetine 0 Yes 20mg QD Take 20 mg [facility] T (PROzac) 20 6- by mouth 1 [facility] al[facility] MG capsule 15:45: (one) time 26 each day. doxycycline 0 Yes 100mg Q.5D Take 100 U T (Vibramycin 6-01 mg by [facility] ) 100 MG 15:45: mouth 2 capsule 26 (two) times a day. Take with at least 8 ounces (large glass) of water, do not lie down for 30 minutes after ibuprofen 0 Yes 400mg Q6H Take 400 UT 400 MG 6-01 mg by [facility] tablet 15:45: mouth 26 every 6 (six) hours if needed for moderate pain. pantoprazol 0 Yes 40mg Take 40 mg UT e 6-01 by mouth 1 [facility] (ProtoNix) 15:45: (one) time 40 MG EC 26 each day tablet before breakfast. Do not crush, chew, or split. predniSONE 2020-0 Yes 20mg QD Take 20 mg U T (Deltasone) 6-01 by mouth 1 [facility] al[facility] 20 MG 15:45: (one) time tablet 26 each day. montelukast 2020-0 Yes 10mg Take 10 mg [facility] (Singulair) 6-01 by mouth [facility] 10 MG 15:45: every tablet 26 night. cyclobenzap 2020-0 Yes Take by [facility] rine 6-01 mouth. [facility] (Flexeril) 15:45: 5 MG tablet 26 doxycycline 202-0 Yes 100mg Q.5D Take 100 [facility] (Vibramycin 6-01 mg by Health ) 100 MG 15:45: mouth 2 capsule 26 (two) times a day. Take with at least 8 ounces (large glass) of water, do not lie down for 30 minutes after ALPRAZolam 202-0 Yes .5mg QD Take 0.5 [facility] (Xanax) 0.5 6-01 mg by [facility] MG tablet 15:45: mouth at 26 night if needed for anxiety. FLUoxetine 2020-0 Yes 20mg QD Take 20 mg [facility] T (PROzac) 20 6-01 by mouth 1 [facility] al[facility] MG capsule 15:45: (one) time 26 each day. ibuprofen 2020-0 Yes 400mg Q6H Take 400 UT 400 MG 6-01 mg by [facility] tablet 15:45: mouth 26 every 6 (six) hours if needed for moderate pain. doxycycline 2020-0 Yes 100mg Q.5D Take 100 U T (Vibramycin 6-01 mg by [employer] ) 100 MG 15:45: mouth 2 capsule 26 (two) times a day. Take with at least 8 ounces (large glass) of water, do not lie down for 30 minutes after ibuprofen 2020-0 Yes 400mg Q6H Take 400 UT 400 MG 6-01 mg by [facility] tablet 15:45: mouth 26 every 6 (six) hours if needed for moderate pain. pantoprazol 2020-0 Yes 40mg Take 40 mg UT e 6-01 by mouth 1 [facility] (ProtoNix) 15:45: (one) time 40 MG EC 26 each day tablet before breakfast. Do not crush, chew, or split. predniSONE 2020-0 Yes 20mg QD Take 20 mg U T (Deltasone) 6-01 by mouth 1 [facility] al[facility] 20 MG 15:45: (one) time tablet 26 each day. montelukast 2020-0 Yes 10mg Take 10 mg [facility] (Singulair) 6-01 by mouth [facility] 10 MG 15:45: every tablet 26 night. cyclobenzap 2020-0 Yes Take by [facility] rine 6-01 mouth. [facility] (Flexeril) 15:45: 5 MG tablet 26 ALPRAZolam 2020-0 Yes .5mg QD Take 0.5 [facility] (Xanax) 0.5 -01 mg by Health MG tablet 15:45: mouth at 26 night if needed for anxiety. FLUoxetine 2020-0 Yes 20mg QD Take 20 mg U T (PROzac) 20 01-01 by mouth 1 [facility] alth MG capsule 15:45: (one) time 26 each day. pantoprazol 0 Yes 40mg Take 40 mg UT e 01-01 by mouth 1 [facility] (ProtoNix) 15:45: (one) time 40 MG EC 26 each day tablet before breakfast. Do not crush, chew, or split. rifAMPin 2020- No [id number] 600mg QD Take 2 U T (Rifadin) 01-01-30 capsules [facility] 300 MG 00:00: 04:59 (600 mg capsule 00 :00 total) by mouth 1 (one) time each day. rifAMPin 2020- No [id number] 600mg QD Take 2 [facility] (Rifadin) 01-01-30 capsules [facility] 300 MG 00:00: 04:59 (600 mg capsule 00 :00 total) by mouth 1 (one) time each day. prednisone 2020-0 No 1mg 20 mg 1-26 tablet 00:00: 00 cyclobenzap 1-0 No 12mg rine 5 mg 1-26 tablet 00:00: 00 gabapentin 1-0 No 1mg 300 mg 1-26 capsule 00:00: 00 prednisone 1-0 No 1mg 20 mg 1-26 tablet 00:00: 00 cyclobenzap 1-0 No 12mg rine 5 mg 1-26 tablet 00:00: 00 gabapentin 2021-0 No 1mg 300 mg 1-26 capsule 00:00: 00 ibuprofen 2021-0 No 1mg 400 mg 1-14 tablet 00:00: 00 gabapentin 2021-0 No 1mg 100 mg 1-14 capsule 00:00: 00 Singulair 1-0 No 1mg 10 mg 1-14 tablet 00:00: 00 doxycycline 1-0 No 1mg hyclate 200 1-14 mg 00:00: tablet,natalie 00 yed release pantoprazol 2020-0 No 1mg e 40 mg 1-14 tablet,natalie 00:00: yed release 00 ibuprofen 2020-0 No 1mg 400 mg 1-14 tablet 00:00: 00 gabapentin 1-0 No 1mg 100 mg 1-14 capsule 00:00: 00 Singulair 1-0 No 1mg 10 mg 1-14 tablet 00:00: 00 doxycycline 1-0 No 1mg hyclate 200 1-14 mg 00:00: tablet,natalie 00 yed release pantoprazol 2020-0 No 1mg e 40 mg 1-14 tablet,natalie 00:00: yed release 00 cholestyram 2019-1 No 1gram ine (with 2-15 sugar) 4 00:00: gram powder 00 for susp in a packet cholestyram 2020-1 No 1gram ine (with 2-15 sugar) 4 00:00: gram powder 00 for susp in a packet omeprazole 2020-0 No 1mg 20 mg 7-13 capsule,del 00:00: ayed 00 release omeprazole 2020-0 No 1mg 20 mg 7-13 capsule,del 00:00: ayed 00 release omeprazole 2020-0 No 1mg 20 mg 7-09 capsule,del 00:00: ayed 00 release omeprazole 2020-0 No 1mg 20 mg 7-09 capsule,del 00:00: ayed 00 release Lipitor Lipitor Yes Tracy 1 tablet Co [facility] Vital Signs Vital Name Observation Time Observation Value Comments Source Body temperature 2023-04-28 18:39:00 36.83 Madhuri [facility] Respiratory rate 2023-04-28 18:39:00 14 /min [facility] Body height 2023-04-28 18:39:00 154.9 cm [facility] Body weight 2023-04-28 18:39:00 65.318 kg [facility] BMI 2023-04-28 18:39:00 27.21 kg/m2 [facility] Oxygen saturation in 2023-04-28 18:39:00 97 /min [facility] Arterial blood by Pulse oximetry Systolic blood pressure 2023-04-28 18:39:00 136 mm[Hg] [facility] Diastolic blood pressure 2023-04-28 18:39:00 70 mm[Hg] [facility] Heart rate 2023-04-28 18:39:00 64 /min [facility] Systolic blood pressure 2022-10-28 19:18:00 110 mm[Hg] [facility] Diastolic blood pressure 2022-10-28 19:18:00 70 mm[Hg] [facility] Heart rate 2022-10-28 19:18:00 60 /min [facility] Body temperature 2022-10-28 19:18:00 36.61 [facility] Respiratory rate 2022-10-28 19:18:00 14 /min [facility] Body height 2022-10-28 19:18:00 154.9 cm [facility] Body weight 2022-10-28 19:18:00 67.132 kg [facility] BMI 2022-10-28 19:18:00 27.96 kg/m2 [facility] Oxygen saturation in 2022-10-28 19:18:00 97 /min [facility] Arterial blood by Pulse oximetry Systolic blood pressure 2022-03-11 19:10:00 113 mm[Hg] [facility] Diastolic blood pressure 2022-03-11 19:10:00 75 mm[Hg] [facility] Heart rate 2022-03-11 19:10:00 70 /min [facility] Body temperature 2022-03-11 19:10:00 36.06 [facility] Respiratory rate 2022-03-11 19:10:00 16 /min [facility] Body height 2022-03-11 19:10:00 154.9 cm [facility] Body weight 2022-03-11 19:10:00 67.586 kg [facility] BMI 2022-03-11 19:10:00 28.15 kg/m2 [facility] Oxygen saturation in 2022-03-11 19:10:00 97 /min [facility] Arterial blood by Pulse oximetry Body height 2021-04-24 15:37:43 154.9 cm [facility] Body weight 2021-04-24 15:37:43 65.909 kg [facility] BMI 2021-04-24 15:37:43 27.45 kg/m2 [facility] Body height 2021-04-24 15:37:43 154.9 cm [facility] Body weight 2021-04-24 15:37:43 65.909 kg [facility] BMI 2021-04-24 15:37:43 27.45 kg/m2 [facility] Body height 2021-05-10 16:31:27 154.9 cm [facility] Body weight 2021-05-10 16:31:27 63.636 kg [facility] BMI 2021-05-10 16:31:27 26.51 kg/m2 [facility] Body height 2021-05-10 16:31:27 154.9 cm [facility] Body weight 2021-05-10 16:31:27 63.636 kg [facility] BMI 2021-05-10 16:31:27 26.51 kg/m2 [facility] Body height 2021-04-17 15:42:20 154.9 cm [facility] Body weight 2021-04-17 15:42:20 65 kg [facility] BMI 2021-04-17 15:42:20 27.08 kg/m2 [facility] Body height 2021-04-17 15:42:20 154.9 cm [facility] Body weight 2021-04-17 15:42:20 65 kg [facility] BMI 2021-04-17 15:42:20 27.08 kg/m2 [facility] Systolic blood pressure 2021-04-10 14:58:00 105 mm[Hg] [facility] Diastolic blood pressure 2021-04-10 14:58:00 71 mm[Hg] [facility] Heart rate 2021-04-10 14:58:00 86 /min [facility] Body height 2021-04-10 14:58:00 154.9 cm [facility] Oxygen saturation in 2021-04-10 14:58:00 94 /min [facility] Arterial blood by Pulse oximetry Systolic blood pressure 2021-04-10 14:58:00 105 mm[Hg] [facility] Diastolic blood pressure 2021-04-10 14:58:00 71 mm[Hg] [facility] Heart rate 2021-04-10 14:58:00 86 /min [facility] Body height 2021-04-10 14:58:00 154.9 cm [facility] Oxygen saturation in 2021-04-10 14:58:00 94 /min [facility] Arterial blood by Pulse oximetry Body height 2021-04-26 20:27:44 154.9 cm [facility] Body weight 2021-04-26 20:27:44 65.909 kg [facility] BMI 2021-04-26 20:27:44 27.45 kg/m2 [facility] Body height 2021-04-26 20:27:44 154.9 cm [facility] Body weight 2021-04-26 20:27:44 65.909 kg [facility] BMI 2021-04-26 20:27:44 27.45 kg/m2 [facility] Body height 2021-04-05 14:22:23 155 cm [facility] Body weight 2021-04-05 14:22:23 65.8 kg [facility] BMI 2021-04-05 14:22:23 27.39 kg/m2 [facility] Body height 2021-04-05 14:22:23 155 cm [facility] Body weight 2021-04-05 14:22:23 65.8 kg [facility] BMI 2021-04-05 14:22:23 27.39 kg/m2 [facility] Body height 2021-03-14 12:30:24 154.9 cm [facility] Body weight 2021-03-14 12:30:24 65.455 kg [facility] BMI 2021-03-14 12:30:24 27.27 kg/m2 [facility] Body height 2021-03-14 12:30:24 154.9 cm [facility] Body weight 2021-03-14 12:30:24 65.455 kg [facility] BMI 2021-03-14 12:30:24 27.27 kg/m2 [facility] BP Systolic 2022-07-09 08:22:00 114 mm[Hg] BP Diastolic 2022-07-09 08:22:00 80 mm[Hg] Weight Measured 2022-07-09 08:22:00 148.40 pounds Height Measured 2022-07-09 08:22:00 61.00 inches Body Temperature 2022-07-09 08:22:00 98.30 degrees Heart Rate 2022-07-09 08:22:00 75.00 /min Respiratory Rate 2022-07-09 08:22:00 17.00 /min BP Systolic 2022-03-05 11:23:00 114 mm[Hg] BP Diastolic 2022-03-05 11:23:00 78 mm[Hg] Weight Measured 2022-03-05 11:23:00 147.80 pounds Height Measured 2022-03-05 11:23:00 61.00 inches Body Temperature 2022-03-05 11:23:00 98.40 degrees Heart Rate 2022-03-05 11:23:00 76.00 /min Respiratory Rate 2022-03-05 11:23:00 18.00 /min Heart Rate 2021-09-02 09:25:00 88.00 /min Respiratory Rate 2021-09-02 09:25:00 20.00 /min BP Systolic 2021-09-02 09:25:00 103 mm[Hg] BP Diastolic 2021-09-02 09:25:00 69 mm[Hg] Weight Measured 2021-09-02 09:25:00 153.40 pounds Height Measured 2021-09-02 09:25:00 61.00 inches Body Temperature 2021-09-02 09:25:00 98.10 degrees BP Systolic 2021-08-26 09:50:00 110 mm[Hg] BP Diastolic 2021-08-26 09:50:00 79 mm[Hg] Weight Measured 2021-08-26 09:50:00 152.40 pounds Height Measured 2021-08-26 09:50:00 61.00 inches Body Temperature 2021-08-26 09:50:00 98.40 degrees Heart Rate 2021-08-26 09:50:00 88.00 /min Respiratory Rate 2021-08-26 09:50:00 BP Systolic 2021-02-21 14:07:00 108 mm[Hg] BP Diastolic 2021-02-21 14:07:00 71 mm[Hg] Weight Measured 2021-02-21 14:07:00 146.60 pounds Height Measured 2021-02-21 14:07:00 61.00 inches Body Temperature 2021-02-21 14:07:00 98.40 degrees Heart Rate 2021-02-21 14:07:00 101.00 /min Respiratory Rate 2021-02-21 14:07:00 21.00 /min BP Systolic 2021-02-18 11:12:00 115 mm[Hg] BP Diastolic 2021-02-18 11:12:00 72 mm[Hg] Weight Measured 2021-02-18 11:12:00 143.80 pounds Height Measured 2021-02-18 11:12:00 61.00 inches Body Temperature 2021-02-18 11:12:00 98.40 degrees Heart Rate 2021-02-18 11:12:00 92.00 /min Respiratory Rate 2021-02-18 11:12:00 21.00 /min BP Systolic 2020-12-24 08:48:00 103 mm[Hg] BP Diastolic 2020-12-24 08:48:00 67 mm[Hg] Weight Measured 2020-12-24 08:48:00 142.20 pounds Height Measured 2020-12-24 08:48:00 61.00 inches Body Temperature 2020-12-24 08:48:00 97.70 degrees Heart Rate 2020-12-24 08:48:00 75.00 /min Respiratory Rate 2020-12-24 08:48:00 18.00 /min BP Systolic 2020-08-28 09:49:00 128 mm[Hg] BP Diastolic 2020-08-28 09:49:00 88 mm[Hg] Weight Measured 2020-08-28 09:49:00 147.40 pounds Height Measured 2020-08-28 09:49:00 61.00 inches Body Temperature 2020-08-28 09:49:00 98.90 degrees Heart Rate 2020-08-28 09:49:00 97.00 /min Respiratory Rate 2020-08-28 09:49:00 16.00 /min BP Systolic 2020-08-16 08:24:00 126 mm[Hg] BP Diastolic 2020-08-16 08:24:00 82 mm[Hg] Weight Measured 2020-08-16 08:24:00 147.00 pounds Height Measured 2020-08-16 08:24:00 61.00 inches Body Temperature 2020-08-16 08:24:00 98.80 degrees Heart Rate 2020-08-16 08:24:00 92.00 /min Respiratory Rate 2020-08-16 08:24:00 17.00 /min BP Systolic 2020-07-17 08:12:00 128 mm[Hg] BP Diastolic 2020-07-17 08:12:00 84 mm[Hg] Weight Measured 2020-07-17 08:12:00 146.00 pounds Height Measured 2020-07-17 08:12:00 61.00 inches Body Temperature 2020-07-17 08:12:00 99.20 degrees Heart Rate 2020-07-17 08:12:00 88.00 /min Respiratory Rate 2020-07-17 08:12:00 16.00 /min BP Systolic 2020-02-13 08:07:00 127 mm[Hg] BP Diastolic 2020-02-13 08:07:00 83 mm[Hg] Weight Measured 2020-02-13 08:07:00 150.20 pounds Height Measured 2020-02-13 08:07:00 61.00 inches Body Temperature 2020-02-13 08:07:00 98.20 degrees Heart Rate 2020-02-13 08:07:00 84.00 /min Respiratory Rate 2020-02-13 08:07:00 16.00 /min Procedures Procedure Date / Time Performed Performing Clinician Sourc e [place] CONTRAST INJ CENT ISAAC 2021-04-24 17:20:[facility] [place] INSERT TUNNELED CV CATH 2021-03-14 14:08:00 System, Provider Not In [facility] WITH PORT MRI THORACIC SPINE W WO 2020-12-07 15:23:00 Troncoso, [facility] H ealth CONTRAST Plan of Care Planned Activity Planned Date Details Comments Source Goal Plan of Care Note [code = 53514-5] Goal Plan of Care Note [code = 64672-9] Goal Plan of Care Note [code = 55078-8] Goal Plan of Care Note [code = 49736-3] Goal Plan of Care Note [code = 29034-5] Goal Plan of Care Note [code = 09014-2] Goal Plan of Care Note [code = 65919-4] Goal Plan of Care Note [code = 30446-2] Goal Plan of Care Note [code = 48439-4] Goal Plan of Care Note [code = 54030-0] Goal Plan of Care Note [code = 58739-6] Goal Plan of Care Note [code = 81396-1] Goal Plan of Care Note [code = 70768-5] Goal Plan of Care Note [code = 93829-3] Goal Plan of Care Note [code = 27595-0] Goal Plan of Care Note [code = 65533-6] Goal Plan of Care Note [code = 07475-6] Goal Plan of Care Note [code = 24218-6] Goal Plan of Care Note [code = 21739-2] Goal Plan of Care Note [code = 34622-3] Goal Plan of Care Note [code = 91153-7] Goal Plan of Care Note [code = 03614-3] Goal Plan of Care Note [code = 07521-2] Goal Plan of Care Note [code = 28750-2] Goal Plan of Care Note [code = 23531-1] Goal Plan of Care Note [code = 17303-1] Goal Plan of Care Note [code = 07532-1] Goal Plan of Care Note [code = 19860-9] Goal Plan of Care Note [code = 48336-0] Goal Plan of Care Note [code = 65744-2] Goal Plan of Care Note [code = 20537-5] Goal Plan of Care Note [code = 63148-2] Goal Plan of Care Note [code = 62502-3] Goal Plan of Care Note [code = 45575-4] Goal Plan of Care Note [code = 95142-3] Goal Plan of Care Note [code = 31929-0] Goal Plan of Care Note [code = 16404-5] Goal Plan of Care Note [code = 42603-7] Goal Plan of Care Note [code = 68286-3] Goal Plan of Care Note [code = 41379-2] Goal Plan of Care Note [code = 15224-2] Goal Plan of Care Note [code = 23438-9] Goal Plan of Care Note [code = 69494-3] Goal Plan of Care Note [code = 41587-8] Goal Plan of Care Note [code = 48992-7] Goal Plan of Care Note [code = 18039-2] Goal Plan of Care Note [code = 32342-4] Goal Plan of Care Note [code = 13575-2] Goal Plan of Care Note [code = 84007-8] Goal Plan of Care Note [code = 59570-9] Goal Plan of Care Note [code = 65014-2] Goal Plan of Care Note [code = 85723-3] Goal Plan of Care Note [code = 12325-2] Goal Plan of Care Note [code = 36201-8] Goal Plan of Care Note [code = 66937-8] Goal Plan of Care Note [code = 51155-2] Goal Plan of Care Note [code = 38860-0] Goal Plan of Care Note [code = 03548-3] Goal Plan of Care Note [code = 41784-5] Goal Plan of Care Note [code = 92182-1] Goal Plan of Care Note [code = 41230-5] Goal Plan of Care Note [code = 68353-4] Goal Plan of Care Note [code = 86221-0] Goal Plan of Care Note [code = 58175-7] Goal Plan of Care Note [code = 50440-9] Goal Plan of Care Note [code = 15050-8] Goal Plan of Care Note [code = 43622-0] Goal Plan of Care Note [code = 02632-4] Goal Plan of Care Note [code = 95467-8] Goal Plan of Care Note [code = 67341-1] Goal Plan of Care Note [code = 09914-8] Goal Plan of Care Note [code = 75791-8] Goal Plan of Care Note [code = 40794-4] Goal Plan of Care Note [code = 59487-7] Goal Plan of Care Note [code = 51814-6] Goal Plan of Care Note [code = 30201-5] Goal Plan of Care Note [code = 47172-8] Goal Plan of Care Note [code = 85352-4] Goal Plan of Care Note [code = 34361-2] Goal Plan of Care Note [code = 02497-4] Encounters Start End Encounter Admission Attending Care Care Encounter Source Date/Time Date/Time Type Type Clinicians Facility Department ID 2023-06-21 Outpatient [id number] [id number] Memoria 12:58:44 [id number] [id number]- [id number] -[id number] [place] [id number] [id number] 2022-11-05 Outpatient [facility] [id number] [place] 14:22:46 [id number] [facility] 2022-10-16 Outpatient [facility] [id number] [place] 14:58:10 [id number] [facility] 2022-07-01 Outpatient [facility] [id number] [place] 12:46:34 [id number] [facility] 2022-06-25 Outpatient [facility] [id number] [place] 13:09:37 [id number] [facility] 2021-08-30 Outpatient TRONCOSO, THY [facility] [id number] [place] 15:16:04 [facility] 2021-03-19 Outpatient [facility] [id number] [place] 13:50:16 [facility] 2020-12-26 Outpatient DOSEKUN, [facility] [id number] [place] 14:11:[address] [facility] 2020-12-25 Outpatient ERICSSON, [facility] [id number] [place] 12:00:38 WALE [facility] 2023-10-27 2023-10-27 Outpatient TRONCOSO, THY [facility] [id number] [place] 14:00:00 14:00:00 [facility] 2023-08-04 2023-08-04 Outpatient TRONCOSO, THY [facility] UT [id number] [place] 12:30:00 12:30:00 [facility] 2023-04-28 2023-04-28 Office Troncoso, Thy UTP 6410 1.2.840.114 1 [id number] [place] 14:00:00 14:58:[address] 350.1.13.58 Health 9.2.7.2.686 [id number] 8 2023-01-05 2023-01-05 Outpatient SFA SFA [id number] 023 Sathya 07:52:29 07:52:29 0605 [facility] 2022-12-31 2022-12-31 Outpatient SFA SFA [id number] 023 Sathya 07:59:46 07:59:46 0531 [facility] 2022-10-28 2022-10-28 Office Troncoso, Thy UTP 6410 1.2.840.114 1 [id number] [place] 14:30:00 15:02:[address] 350.1.13.58 Health 9.2.7.2.686 [id number] 8 2022-10-14 2022-10-14 Outpatient SFA SFA [id number] Sathya 08:13:47 08:13:47 0314 [facility] [place] 2022-10-10 2022-10-10 Outpatient SFA SFA [id number] 023 Sathya 11:07:04 11:07:04 0310 F [place] 2022-10-07 2022-10-07 Outpatient SFA SFA [id number] 023 Sathya 08:01:27 08:01:27 0307 F [place] 2022-09-29 2022-09-29 Outpatient SFA SFA [id number] 023 Sathya 09:14:40 09:14:40 0227 F [place] 2022-07-09 2022-07-09 Outpatient SFA SFA [id number] 022 Sathya 08:16:36 08:16:36 1207 F [place] 2022-07-09 2022-07-09 Outpatient [id number] 00:00:00 00:00:00 Visit [id number]-b -e7c1-o42 [id number] 2022-07-01 2022-07-01 Outpatient TEMITOPE TRONCOSO [facility] [id number] [place] 13:00:00 13:39:49 Health 2022-03-11 2022-03-11 Office Temitope Troncoso UTP 6410 1.2.840.114 1 [id number] [place] 14:00:00 15:06:[address] 350.1.13.58 Health 9.2.7.2.686 [id number] 8 2022-03-07 2022-03-07 Telephone Temitope Troncoso UTP 6410 1.2.840.114 [id number] [place] 00:00:00 00:00:[address] 350.1.13.58 Health 9.2.7.2.686 [id number] 8 2022-03-05 2022-03-05 Outpatient [id number] 00:00:00 00:00:00 Visit [id number] [id number]-8 -04u7-y0a 0k6-w0eoo3 [id number] 2022-02-26 2022-02-26 Telephone Temitope Troncoso UTP 6410 1.2.840.114 [id number] [place] 00:00:00 00:00:[address] 350.1.13.58 Health 9.2.7.2.686 [id number] 8 2022-02-25 2022-02-25 Telephone Temitope Troncoso UTP 6410 1.2.840.114 [id number] [place] 00:00:00 00:00:[address] 350.1.13.58 Health 9.2.7.2.686 [id number] 8 2022-02-21 2022-02-21 Telephone Ada Cuba UTP 6410 1.2.84 0.114 [id number] [place] 00:00:00 00:00:[address] 350.1.13.58 Health 9.2.7.2.686 508.0197501 8 2022-02-11 2022-02-11 Telephone Maximino Manning UTP 6410 1.2.840.114 [id number] [place] 00:00:00 00:00:[address] 350.1.13.58 Health 9.2.7.2.686 [id number] 8 2022-01-23 2022-01-23 Telephone Temitope Troncoso UTP [facility] 1.2.840.114 [id number] [place] 00:00:00 00:00:00 GREATER 350.1.13.58 He alth HEIGHTS 9.2.7.2.686 MEDICAL [id number] PLA[place] 1 4 2022-01-21 2022-01-21 Telephone Temitope Troncoso UTP 6410 1.2.840.114 [id number] [place] 00:00:00 00:00:[address] 350.1.13.58 Health 9.2.7.2.686 [id number] 8 2022-01-06 2022-01-06 Telephone Temitope Troncoso UTP 6410 1.2.840.114 [id number] [place] 00:00:00 00:00:[address] 350.1.13.58 Health 9.2.7.2.686 [id number] 8 2021-12-31 2021-12-31 Telephone Guerda Montaño UTP 6410 1.2.840 .114 [id number] [place] 00:00:00 00:00:[address] 350.1.13.58 Health 9.2.7.2.686 [id number] 9 2021-12-27 2021-12-27 Telephone Ada Cuba UTP 6410 1.2.84 0.114 [id number] [place] 00:00:00 00:00:[address] 350.1.13.58 Health 9.2.7.2.686 530.2700716 8 2021-12-24 2021-12-24 Office Gregorio UTP 6410 1.2.840.114 138 [id number] [place] 09:30:00 10:00:[address]ÍREZ ST 350.1.13.58 Health 9.2.7.2.686 [id number] 4 2021-12-23 2021-12-23 Telephone Rylee Davila UTP 6410 1.2.840.1 14 [id number] [place] 00:00:00 00:00:[address] 350.1.13.58 Health 9.2.7.2.686 284.2933377 4 2021-12-13 2021-12-13 Telephone Ada Cuba UTP 6410 1.2.84 0.114 [id number] [place] 00:00:00 00:00:[address] 350.1.13.58 Health 9.2.7.2.686 [id number] 8 2021-12-13 2021-12-13 Telephone Ada Cuba UTP 6410 1.2.84 0.114 [id number] [place] 00:00:00 00:00:[address] 350.1.13.58 Health 9.2.7.2.686 [id number] 8 2021-12-03 2021-12-03 Office Temitope Troncoso UTP 6410 1.2.840.114 1 [id number] [place] 14:45:00 15:48:[address] 350.1.13.58 Health 9.2.7.2.686 [id number] 8 2021-11-08 2021-11-08 Telephone Ada Cuba UTP 6410 1.2.84 0.114 [id number] [place] 00:00:00 00:00:[address] 350.1.13.58 Health 9.2.7.2.686 137.0567176 8 2021-06-07 2021-06-07 EXT MHH OP Tron[place]o, Thy EXT MSRDP 1.2.840.1 14 [id number] [place] 00:00:00 00:00:00 LOCATION 350.1.13.58 H ealth 9.2.7.2.686 489.4440686 0 2021-06-07 2021-06-07 EXT MHH OP Tron[place]o, Thy EXT MSRDP 1.2.840.1 14 [id number] [place] 00:00:00 00:00:00 LOCATION 350.1.13.58 H ealth 9.2.7.2.686 046.9070613 0 2021-06-07 2021-06-07 EXT MHH OP [place]ron[place]o, Thy EXT MSRDP 1.2.840.1 14 [id number] [place] 00:00:00 00:00:00 LOCATION 350.1.13.58 H ealth 9.2.7.2.686 630.2585632 0 2021-06-07 2021-06-07 EXT MHH OP [place]ron[place]o, Thy EXT MSRDP 1.2.840.1 14 [id number] [place] 00:00:00 00:00:00 LOCATION 350.1.13.58 H ealth 9.2.7.2.686 917.5816008 0 2021-06-07 2021-06-07 EXT MHH OP [place]ron[place]o, Thy EXT MSRDP 1.2.840.1 14 [id number] [place] 00:00:00 00:00:00 LOCATION 350.1.13.58 H ealth 9.2.7.2.686 255.3597970 0 2021-06-07 2021-06-07 EXT MHH OP [place]o, Thy EXT MSRDP 1.2.840.1 14 [id number] [place] 00:00:00 00:00:00 LOCATION 350.1.13.58 H ealth 9.2.7.2.686 722.8985793 0 2021-05-21 2021-05-21 EXT MHH OP [place]o, Thy EXT MSRDP 1.2.840.1 14 [id number] [place] 00:00:00 00:00:00 LOCATION 350.1.13.58 H ealth 9.2.7.2.686 009.2775945 0 2021-05-21 2021-05-21 EXT MHH OP [place]ron[place]o, Thy EXT MSRDP 1.2.840.1 14 [id number] [place] 00:00:00 00:00:00 LOCATION 350.1.13.58 H ealth 9.2.7.2.686 848.5182617 0 2021-05-14 2021-05-14 EXT MHH OP [place]ron[place]o, Thy EXT MSRDP 1.2.840.1 14 [id number] [place] 00:00:00 00:00:00 LOCATION 350.1.13.58 H ealth 9.2.7.2.686 937.8047555 0 2021-05-14 2021-05-14 EXT MHH OP [place]ron[place]o, Thy EXT MSRDP 1.2.840.1 14 [id number] [place] 00:00:00 00:00:00 LOCATION 350.1.13.58 H ealth 9.2.7.2.686 493.4909681 0 2021-05-14 2021-05-14 EXT MHH OP [place]ron[place]o, Thy EXT MSRDP 1.2.840.1 14 [id number] [place] 00:00:00 00:00:00 LOCATION 350.1.13.58 H ealth 9.2.7.2.686 374.5201567 0 2021-05-14 2021-05-14 EXT MHH OP [place]o, Thy EXT MSRDP 1.2.840.1 14 [id number] [place] 00:00:00 00:00:00 LOCATION 350.1.13.58 H ealth 9.2.7.2.686 223.2021774 0 2021-05-10 2021-05-10 EXT MHH OP [place]o, Thy EXT MSRDP 1.2.840.1 14 [id number] [place] 00:00:00 00:00:00 LOCATION 350.1.13.58 H ealth 9.2.7.2.686 798.4631712 0 2021-05-10 2021-05-10 EXT MHH OP [place], Thy EXT MSRDP 1.2.840.1 14 [id number] [place] 00:00:00 00:00:00 LOCATION 350.1.13.58 H ealth 9.2.7.2.686 949.5537019 0 2021-05-01 2021-05-01 EXT MHH OP [place]ron[place]o, Thy EXT MSRDP 1.2.840.1 14 [id number] [place] 00:00:00 00:00:00 LOCATION 350.1.13.58 H ealth 9.2.7.2.686 614.4620565 0 2021-05-01 2021-05-01 EXT MHH OP [place]ron[place]o, Thy EXT MSRDP 1.2.840.1 14 [id number] [place] 00:00:00 00:00:00 LOCATION 350.1.13.58 H ealth 9.2.7.2.686 587.3295002 0 2021-04-30 2021-04-30 EXT MHH OP [place]o, Thy EXT MSRDP 1.2.840.1 14 [id number] [place] 00:00:00 00:00:00 LOCATION 350.1.13.58 H ealth 9.2.7.2.686 450.5449468 0 2021-04-30 2021-04-30 EXT MHH OP [place]ron[place]o, Thy EXT MSRDP 1.2.840.1 14 [id number] [place] 00:00:00 00:00:00 LOCATION 350.1.13.58 H ealth 9.2.7.2.686 345.5846746 0 2021-04-24 2021-04-24 EXT MHH OP [place]ron[place]o, Thy EXT MSRDP 1.2.840.1 14 [id number] [place] 00:00:00 00:00:00 LOCATION 350.1.13.58 H ealth 9.2.7.2.686 641.5104239 0 2021-04-24 2021-04-24 EXT MHH OP [place]ron[place]o, Thy EXT MSRDP 1.2.840.1 14 [id number] [place] 00:00:00 00:00:00 LOCATION 350.1.13.58 H ealth 9.2.7.2.686 747.1042605 0 2021-04-24 2021-04-24 EXT MHH OP Trocnoso, Thy EXT MSRDP 1.2.840.1 14 [id number] [place] 00:00:00 00:00:00 LOCATION 350.1.13.58 H ealth 9.2.7.2.686 886.8799350 0 2021-04-24 2021-04-24 EXT MHH OP Troncoso, Thy EXT MSRDP 1.2.840.1 14 [id number] [place] 00:00:00 00:00:00 LOCATION 350.1.13.58 H ealth 9.2.7.2.686 916.5347185 0 2021-04-22 2021-04-22 EXT MHH OP Tron[place]o, Thy EXT MSRDP 1.2.840.1 14 [id number] [place] 00:00:00 00:00:00 LOCATION 350.1.13.58 H ealth 9.2.7.2.686 437.4751275 0 2021-04-22 2021-04-22 EXT MHH OP [place]ron[place]o, Thy EXT MSRDP 1.2.840.1 14 [id number] [place] 00:00:00 00:00:00 LOCATION 350.1.13.58 H ealth 9.2.7.2.686 724.3638680 0 2021-04-18 2021-04-18 EXT MHH OP [place]ron[place]o, Thy EXT MSRDP 1.2.840.1 14 [id number] [place] 00:00:00 00:00:00 LOCATION 350.1.13.58 H ealth 9.2.7.2.686 599.8219548 0 2021-04-18 2021-04-18 EXT MHH OP [place]ron[place]o, Thy EXT MSRDP 1.2.840.1 14 [id number] [place] 00:00:00 00:00:00 LOCATION 350.1.13.58 H ealth 9.2.7.2.686 537.3676824 0 2021-04-17 2021-04-17 EXT [facility] OP Troncoso, Thy EXT MSRDP 1.2.840.1 14 [id number] [place] 00:00:00 00:00:00 LOCATION 350.1.13.58 H ealth 9.2.7.2.686 719.1053790 0 2021-04-17 2021-04-17 EXT [facility] OP Troncoso, Thy EXT MSRDP 1.2.840.1 14 [id number] [place] 00:00:00 00:00:00 LOCATION 350.1.13.58 H ealth 9.2.7.2.686 653.2094314 0 2021-04-16 2021-04-16 EXT [facility] OP Troncoso, Thy EXT MSRDP 1.2.840.1 14 [id number] [place] 00:00:00 00:00:00 LOCATION 350.1.13.58 H ealth 9.2.7.2.686 048.4538318 0 2021-04-16 2021-04-16 EXT [facility] OP Troncoso, Thy EXT MSRDP 1.2.840.1 14 [id number] [place] 00:00:00 00:00:00 LOCATION 350.1.13.58 H ealth 9.2.7.2.686 140.2524745 0 2021-04-15 2021-04-15 EXT [facility] OP Troncoso, Thy EXT MSRDP 1.2.840.1 14 [id number] [place] 00:00:00 00:00:00 LOCATION 350.1.13.58 H ealth 9.2.7.2.686 925.4904597 0 2021-04-15 2021-04-15 EXT MHH OP [place]ron[place]o, Thy EXT MSRDP 1.2.840.1 14 [id number] [place] 00:00:00 00:00:00 LOCATION 350.1.13.58 H ealth 9.2.7.2.686 077.9832468 0 2021-04-12 2021-04-12 EXT MHH OP [place]o, Thy EXT MSRDP 1.2.840.1 14 [id number] [place] 00:00:00 00:00:00 LOCATION 350.1.13.58 H ealth 9.2.7.2.686 780.9446819 0 2021-04-12 2021-04-12 EXT MHH OP [place], Thy EXT MSRDP 1.2.840.1 14 [id number] [place] 00:00:00 00:00:00 LOCATION 350.1.13.58 H ealth 9.2.7.2.686 351.4750310 0 2021-04-12 2021-04-12 EXT MHH OP [place], Thy EXT MSRDP 1.2.840.1 14 [id number] [place] 00:00:00 00:00:00 LOCATION 350.1.13.58 H ealth 9.2.7.2.686 240.6614889 0 2021-04-12 2021-04-12 EXT MHH OP [place]ron[place]o, Thy EXT MSRDP 1.2.840.1 14 [id number] [place] 00:00:00 00:00:00 LOCATION 350.1.13.58 H ealth 9.2.7.2.686 674.2464444 0 2021-04-12 2021-04-12 EXT MHH OP [place]ron[place]o, Thy EXT MSRDP 1.2.840.1 14 [id number] [place] 00:00:00 00:00:00 LOCATION 350.1.13.58 H ealth 9.2.7.2.686 157.3791883 0 2021-04-12 2021-04-12 EXT MHH OP Tron[place]o, Thy EXT MSRDP 1.2.840.1 14 [id number] [place] 00:00:00 00:00:00 LOCATION 350.1.13.58 H ealth 9.2.7.2.686 288.9983196 0 2021-04-12 2021-04-12 EXT MH OP Troncoso, Thy EXT MSRDP 1.2.840.1 14 [id number] [place] 00:00:00 00:00:00 LOCATION 350.1.13.58 H ealth 9.2.7.2.686 278.1711484 0 2021-04-12 2021-04-12 EXT MHH OP [place]ron[place]o, Thy EXT MSRDP 1.2.840.1 14 [id number] [place] 00:00:00 00:00:00 LOCATION 350.1.13.58 H ealth 9.2.7.2.686 690.4975510 0 2021-04-12 2021-04-12 EXT [facility] OP Troncoso, Thy EXT MSRDP 1.2.840.1 14 [id number] [place] 00:00:00 00:00:00 LOCATION 350.1.13.58 H ealth 9.2.7.2.686 205.0973043 0 2021-04-12 2021-04-12 EXT [facility] OP Troncoso, Thy EXT MSRDP 1.2.840.1 14 [id number] [place] 00:00:00 00:00:00 LOCATION 350.1.13.58 H ealth 9.2.7.2.686 500.7194592 0 2021-04-10 2021-04-10 Office 1, Utp UTP 6410 1.2.840.114 [id number] 0230 [place] 09:51:30 10:56:[address] 350.1.13.58 Health nal Consult 9.2.7.2.686 502.9568738 1 2021-04-10 2021-04-10 Office 1, Utp UTP 6410 1.2.840.114 67222 0230 UT 09:51:30 10:56:[address] 350.1.13.58 Health nal Consult 9.2.7.2.686 923.8981522 1 2021-04-09 2021-04-09 Telephone Dotty Barkley UTP 6410 1.2.840 .114 [id number] [place] 00:00:00 00:00:[address] 350.1.13.58 Health 9.2.7.2.686 003.5114892 1 2021-04-09 2021-04-09 Telephone Dotty Barkley UTP 6410 1.2.840 .114 [id number] [place] 00:00:00 00:00:[address] 350.1.13.58 Health 9.2.7.2.686 623.0319924 1 2021-04-05 2021-04-05 EXT [facility] OP Troncoso, Thy EXT MSRDP 1.2.840.1 14 [id number] UT 00:00:00 00:00:00 LOCATION 350.1.13.58 H ealth 9.2.7.2.686 965.4439374 0 2021-04-05 2021-04-05 EXT [facility] OP Troncoso, Thy EXT MSRDP 1.2.840.1 14 [id number] [place] 00:00:00 00:00:00 LOCATION 350.1.13.58 H ealth 9.2.7.2.686 497.8308117 0 2021-04-03 2021-04-03 EXT MHH OP Troncoso, Thy EXT MSRDP 1.2.840.1 14 [id number] [place] 00:00:00 00:00:00 LOCATION 350.1.13.58 H ealth 9.2.7.2.686 002.7258613 0 2021-04-03 2021-04-03 EXT MHH OP Tron[place]o, Thy EXT MSRDP 1.2.840.1 14 [id number] [place] 00:00:00 00:00:00 LOCATION 350.1.13.58 H ealth 9.2.7.2.686 754.7749682 0 2021-04-03 2021-04-03 EXT MH OP Troncoso, Thy EXT MSRDP 1.2.840.1 14 [id number] [place] 00:00:00 00:00:00 LOCATION 350.1.13.58 H ealth 9.2.7.2.686 740.4567720 0 2021-04-03 2021-04-03 EXT MHH OP Tron[place]o, Thy EXT MSRDP 1.2.840.1 14 [id number] UT 00:00:00 00:00:00 LOCATION 350.1.13.58 H ealth 9.2.7.2.686 382.4286682 0 2021-03-26 2021-03-26 EXT H OP Troncoso, Thy EXT MSRDP 1.2.840.1 14 [id number] [place] 00:00:00 00:00:00 LOCATION 350.1.13.58 H ealth 9.2.7.2.686 281.8981638 0 2021-03-26 2021-03-26 EXT H OP Troncoso, Thy EXT MSRDP 1.2.840.1 14 [id number] [place] 00:00:00 00:00:00 LOCATION 350.1.13.58 H ealth 9.2.7.2.686 226.3045934 0 2021-03-26 2021-03-26 EXT H OP Troncoso, Thy EXT MSRDP 1.2.840.1 14 [id number] [place] 00:00:00 00:00:00 LOCATION 350.1.13.58 H ealth 9.2.7.2.686 409.9410499 0 2021-03-26 2021-03-26 EXT H OP Troncoso, Thy EXT MSRDP 1.2.840.1 14 [id number] UT 00:00:00 00:00:00 LOCATION 350.1.13.58 H ealth 9.2.7.2.686 685.1231844 0 2021-03-25 2021-03-25 EXT MHH OP [place]roncoso, Thy EXT MSRDP 1.2.840.1 14 [id number] [place] 00:00:00 00:00:00 LOCATION 350.1.13.58 H ealth 9.2.7.2.686 [id number] 0 2021-03-25 2021-03-25 EXT MHH OP [place], Thy EXT MSRDP 1.2.840.1 14 [id number] [place] 00:00:00 00:00:00 LOCATION 350.1.13.58 H ealth 9.2.7.2.686 [id number] 0 2021-03-11 2021-03-11 EXT MHH OP System, EXT MSRDP 1.2.840.114 1 [id number] [place] 00:00:00 00:00:00 Provider LOCATION 350.1.13.58 Health Not In 9.2.7.2.686 [id number] 0 2021-03-11 2021-03-11 EXT MHH OP System, EXT MSRDP 1.2.840.114 1 [id number] [place] 00:00:00 00:00:00 Provider LOCATION 350.1.13.58 Health Not In 9.2.7.2.686 [id number] 0 2021-03-08 2021-03-08 [facility] El[place], [facility] 6410 1.2.840.114 125 [id number] [place] 00:00:00 00:00:[address] 350.1.13.58 Health 9.2.7.2.686 [id number] 2021-01-01 2021-01-01 Office Gregorio, [facility] 6410 1.2.840.114 [id number] [place] 09:06:23 09:36:23 [address] 350.1.13.58 Health 9.2.7.2.686 [id number] 4 2020-12-05 2020-12-05 EXT MHH OP [place], Thy EXT MSRDP 1.2.840.1 14 [id number] [place] 00:00:00 00:00:00 LOCATION 350.1.13.58 H ealth 9.2.7.2.686 [id number] 0 2020-12-05 2020-12-05 EXT MHH OP [place], Thy EXT MSRDP 1.2.840.1 14 [id number] [place] 00:00:00 00:00:00 LOCATION 350.1.13.58 H ealth 9.2.7.2.686 [id number] 0 2017-11-24 2017-11-24 Outpatient Shanti Mustafa [id number] Common 13:45:00 13:45:00 [facility] Results Test Description Test Time Test Comments Results Result Comments Source TSH, THIRD GENERATION 2023-01-01 06:02:48 Test Item Value Reference Range Interpretation Comme nts TSH, THIRD GENERATION (test 1.370 UIU/ML 0.400-4.100 UNLESS OTHERWISE INDICATED, code = 2821) ALL TESTING PER FORMED AT [employer], [place] [id number] [employer] MANAGER: Torres MAYERS [id number] [place] [id number] LIPID [id number] 02:55:50 Test Item Value Reference Range Interpretation Comments CHOLESTEROL (test 216 MG/DL <200 H code = 2210) TRIGLYCERIDES (test 139 MG/DL <150 code = 2232) HDL CHOLESTEROL (test 66 MG/DL >39 code = 2220) CALC LDL CHOL (test 125 MG/DL <100 H NOTE: C ALCULATED LDL code = 2237) IS BASED ON ZENOBIA-SHERIFF METHOD WHICHINCLUDES ADJUSTABLE TRIGLYCERIDE:VL DL CHOLESTEROL RAT IO.THIS FACTOR VARIES B Y MEASURED TRIGLY CERIDE AND NON-HDLCHOL ESTEROL CONCENTRATIONS WITH INCREASED CALCU LATED LDL SEENIN HIGH ER TRIGLYCERIDE OR LOWER NON-HDL SPECIME NS. FOR MOREINFORMATION , SEE CLIENT ANNOUNCE MENT AT [email or web address] RATIO LDL/HDL 1.89 RATIO <3.22 (test code = 2238) HEMOGLOBIN [id number] 02:24:19 Test Item Value Reference Range Interpretation Comments HEMOGLOBIN A1c (test 5.9 % 4.2-5.6 H AMER[employer] CAN DIABETES code = 67545) ASSOCIATION IDELINES FOR HGB A1C: PREDIABETES/INC REASED RISK . . . . . . . 5.7 -6.4% DIAGNOSIS OF DI ABETES . . . . . . . . . >=6 .5% WITH CONFIRMATION OR APPROPRIATE SYMPTOMS NOTE: ASSAY MAY BE AFFECTED BY HEMOGLOBINOPATH IES (SICKLE CELL ANEMIA, S- C DISEASE, OTHERS) OR MCKAYLA FICIALLY LOWERED BY DECR EASED RED CELL SURVIVAL ( HEMOLYTIC ANEMIAS, BLOOD LOSS, ETC.). CONSIDER ALTERN ATE TESTING OR LABORATORY C ONSULTATION. [facility] has imp ortant pathology staff changes effective 10/01. New pathology s taff will provide uninter rupted, excellent patie nt care and clinical consul tation. See URL: [email or web address] UNLESS OTHE RWISE INDICATED, ALL TESTING PERFORMED AT [facility] [address] [place] [address] LABORATOR Y DIRECTOR: MARTINA MEYER M.D. CLIA NUMBER [id number] [place]EDIT[place] N O. [id number] HEMOGLOBIN [id number] 19:13:49 Test Item Value Reference Range Interpretation Comments HEMOGLOBIN A1c TEST NOT 4.2-5.6 Unable to per form (test code = PERFORMED % testing, specim en 43660) not received.Ch arges adjusted as applicable. [facility] has important pathology staff changes effecti ve 2022. New pathology staff will provide uninterrupted, excellent patie nt care and clinic al consultation. S ee URL: [email or web address]. UN LESS OTHERWISE INDIC ATED, ALL TESTING PERFORMED AT [facility] [place] [address] [place] [address] [facility] DIRECTOR: AVEL KNOTT M.D. C ELLY NUMBER [id number] [place]. [id number] VITAMIN D, [id number] 06:13:14 Test Item Value Reference Range Interpretation Comments VITAMIN D, 25 53 NG/ML SEE BELOW EFFECTIVE 08/11/2022, [place] (test code PLEASE NOTE NE W METHODOLOGY = 4958) IS ELECTROCH EMILUMINESCENCE BINDING ASSAY. NOTE: 25-HYDROXYVITAM IN D ASSAY INCLUDES 25-HYD ROXYVITAMIN D2 AND D3. I NTERPRETIVE RANGES PED IATRIC (<17 YEARS) . . . . . . . . . . . NG/ML 20-100ADU LT: INSUFFICIENT . . . . . . . . . . . . . . NG/ML <20 SUBOP TIMAL . . . . . . . . . . . . . . . NG/ML 20-29 OPTIMAL . . . . . . . . . . . . . . . . . NG/ML 30-100 COMPREHENSIVE METABOLIC [id number] 02:29:54 Test Item Value Reference Range Interpretation Comments GLUCOSE (test code = 102 MG/DL 70-99 H 2216) BUN (test code = 8 MG/DL 8-23 2207) CREATININE (test 0.43 MG/DL 0.60-1.30 L code = 221) eGFR (2020 CKD-EPI) 111 >60 (test code = 98214) ML/MIN/1.73 CALC BUN/CREAT (test 19 RATIO - code = 2235) SODIUM (test code = 143 MEQ/L 604-102 1417) POTASSIUM (test code 4.4 MEQ/L 3.5-5.4 = 2227) CHLORIDE (test code 102 MEQ/L 95-107 = 2214) CARBON DIOXIDE (test 29 MEQ/L 19-31 code = 2206) CALCIUM (test code = 9.6 MG/DL 8.5-10.5 2208) PROTEIN, TOTAL (test 7.4 G/DL 6.1-8.3 code = 2229) ALBUMIN (test code = 4.9 G/DL 3.5-5.2 2200) CALC GLOBULIN (test 2.5 G/DL 1.9-3.7 code = 2240) CALC A/G RATIO (test 2.0 RATIO 1.0-2.6 code = 2234) BILIRUBIN, TOTAL 0.2 MG/DL See_Comment [Automated message] (test code = 2207) The syste m which generated this result transmit therese reference range : <=1.2. The refe rence range was not u sed to interpret th is result as normal/abnormal . ALKALINE PHOSPHATASE 114 U/L 40-136 (test code = 2204) AST (test code = 23 U/L 9-40 2217) ALT (test code = 23 U/L 5-40 2218) LIPID [id number] 02:29:54 Test Item Value Reference Range Interpretation Comments CHOLESTEROL (test 316 MG/DL <200 H code = 2210) TRIGLYCERIDES (test 209 MG/DL <150 H code = 2232) HDL CHOLESTEROL (test 66 MG/DL >39 code = 2220) CALC LDL CHOL (test 211 MG/DL <100 H NOTE: C ALCULATED LDL code = 2237) IS BASED ON ZENOBIA-SHERIFF METHOD WHICHINCLUDES ADJUSTABLE TRIGLYCERIDE:VL DL CHOLESTEROL RAT IO.THIS FACTOR VARIES B Y MEASURED TRIGLY CERIDE AND NON-HDLCHOL ESTEROL CONCENTRATIONS WITH INCREASED CALCU LATED LDL SEENIN HIGH ER TRIGLYCERIDE OR LOWER NON-HDL SPECIME NS. FOR MOREINFORMATION , SEE CLIENT ANNOUNCE MENT AT [email or web address] RISK RATIO LDL/HDL 3.20 RATIO <3.22 [facility] has important (test code = 2238) pathology staff changes effecti ve 2022. New pathology staff will provide uninter rupted, excellent patie nt care and clinical consultation. S ee URL: [email or web address] UNLES S OTHERWISE INDIC ATED, ALL TESTING PER FORMED AT [facility] [employer], [facility]. [address] [place], [place] [id number] [place] [address] ANJU DIRECTOR: PAULA MALONEY M.D. CLIA NUMBER [id number] CAP ACCREDITATION N O. [id number] CBC W/AUTO DIFF WITH [id number] 02:24:39 Test Item Value Reference Range Interpretation Comments WBC (test code = 5.1 K/UL 3.5-11.0 1001) RBC (test code = 4.86 M/UL 3.80-5.40 1002) HEMOGLOBIN (test code 13.8 G/DL 11.5-15.5 = 1003) HEMATOCRIT (test code 42.3 % 34.0-45.0 = 1004) MCV (test code = 87.0 fL 80.0-99.0 1005) MCH (test code = 28.4 PG 25.0-33.0 1006) MCHC (test code = 32.6 G/DL 31.0-36.0 1007) RDW (test code = 12.5 % 11.5-15.0 1038) NEUTROPHILS (test 60.4 % code = 1008) LYMPHOCYTES (test 29.1 % code = 1010) MONOCYTES (test code 7.5 % = 1011) EOSINOPHILS (test 1.4 % code = 1012) BASOPHILS (test code 1.2 % = 1013) IMMATURE GRANULOCYTES 0.4 % (test code = 1036) NUCLEATED RBCS (test 0.0 /100 WBC'S See_Comment [Aut omated code = 1065) message] The sy stem which generated this result transmitted reference range : 0.0. The refere nce range was not u sed to interpret th is result as normal/abnormal . PLATELET COUNT (test 255 K/UL 130-400 code = 1015) ABSOLUTE NEUTROPHILS 3.07 K/UL 1.50-7.50 (test code = 1066) ABSOLUTE LYMPHOCYTES 1.48 K/UL 1.00-4.00 (test code = 1067) ABSOLUTE MONOCYTES 0.38 K/UL 0.20-1.00 (test code = 1068) ABSOLUTE EOSINOPHILS 0.07 K/UL 0.00-0.50 (test code = 1040) ABSOLUTE BASOPHILS 0.06 K/UL 0.00-0.20 (test code = 1069) ABS IMMATURE 0.02 K/UL 0.00-0.10 GRANULOCYTES (test code = 1020) ABS NUCLEATED RBCS 0.00 K/UL 0.00-0.11 (test code = 03318) LIPID [id number] 00:00:00 Test Item Value Reference Range Interpretation Comments CHOLESTEROL (test code = 2210) 360 MG/DL TRIGLYCERIDES (test code = 2232) 147 MG/DL HDL CHOLESTEROL (test code = 2220) 65 MG/DL CALC LDL CHOL (test code = 2237) 264 MG/DL RISK RATIO LDL/HDL (test code = 4.06 RATIO 2238) LIPID [id number] 00:00:00 Test Item Value Reference Range Interpretation Comments CHOLESTEROL (test code = 2210) 360 MG/DL TRIGLYCERIDES (test code = 2232) 147 MG/DL HDL CHOLESTEROL (test code = 2220) 65 MG/DL CALC LDL CHOL (test code = 2237) 264 MG/DL RISK RATIO LDL/HDL (test code = 4.06 RATIO 2238) VITAMIN D, 25 [id number] 00:00:00 Test Item Value Reference Range Interpretation Comments VITAMIN D, 25 OH (test code = 4958) 28 NG/ML VITAMIN D, 25 [id number] 00:00:00 Test Item Value Reference Range Interpretation Comments VITAMIN D, 25 OH (test code = 4958) 28 NG/ML LIPID [id number] 04:59:38 Test Item Value Reference Range Interpretation Comments CHOLESTEROL (test 233 MG/DL <200 H code = 2210) TRIGLYCERIDES (test 125 MG/DL <150 code = 2232) HDL CHOLESTEROL (test 68 MG/DL >39 code = 2220) CALC LDL CHOL (test 140 MG/DL <100 H NOTE: C ALCULATED LDL code = 2237) IS BASED ON ZENOBIA-SHERIFF METHOD WHICHINCLUDES ADJUSTABLE TRIGLYCERIDE:VL DL CHOLESTEROL RAT IO.THIS FACTOR VARIES B Y MEASURED TRIGLY CERIDE AND NON-HDLCHOL ESTEROL CONCENTRATIONS WITH INCREASED CALCU LATED LDL SEENIN HIGH ER TRIGLYCERIDE OR LOWER NON-HDL SPECIME NS. FOR MOREINFORMATION , SEE CLIENT ANNOUNCE MENT AT [email or web address] RISK RATIO LDL/HDL 2.06 RATIO <3.22 (test code = 2238) COMPREHENSIVE METABOLIC [id number] 04:59:38 Test Item Value Reference Range Interpretation Comments GLUCOSE (test code = 106 MG/DL 70-99 H 2216) BUN (test code = 12 MG/DL 8-23 2207) CREATININE (test 0.48 MG/DL 0.60-1.30 L code = 2214) eGFR (2020 CKD-EPI) 108 >60 (test code = 84160) ML/MIN/1.73 CALC BUN/CREAT (test 25 RATIO 6-28 code = 2235) SODIUM (test code = 145 MEQ/L 862-175 2255) POTASSIUM (test code 4.4 MEQ/L 3.5-5.4 = 2227) CHLORIDE (test code 105 MEQ/L 95-107 = 221) CARBON DIOXIDE (test 29 MEQ/L 19-31 code = 2206) CALCIUM (test code = 9.9 MG/DL 8.5-10.5 2208) PROTEIN, TOTAL (test 7.5 G/DL 6.1-8.3 code = 222) ALBUMIN (test code = 4.7 G/DL 3.5-5.2 2200) CALC GLOBULIN (test 2.8 G/DL 1.9-3.7 code = 2240) CALC A/G RATIO (test 1.7 RATIO 1.0-2.6 code = 2234) BILIRUBIN, TOTAL 0.5 MG/DL See_Comment [Automated message] (test code = 2207) The syste m which generated this result transmitted ref erence range: <=1.2. T he reference range was not used to int erpret this result as normal/abnormal . ALKALINE PHOSPHATASE 110 U/L 40-136 (test code = 2204) AST (test code = 20 U/L 9-40 8) ALT (test code = 17 U/L 5-40 UNLESS OT HERWISE 2219) INDICATED, ALL TESTING PERFORM ED [facility] PATH [facility], [facility]. [address] [place] [id number] [place] [address] DIRECTOR: PAULA MALONEY M.D. CLIA NUMBER [id number] CAP ACCREDITATION N O. [id number] HEMOGLOBIN [id number] 04:25:32 Test Item Value Reference Range Interpretation Comments HEMOGLOBIN A1c (test code = 11154) 5.8 % 4.2-5.6 H HEMOGLOBIN A1c [ADDED]2022-03-06 00:00:00 Test Item Value Reference Range Interpretation Comments HEMOGLOBIN A1c (test code = 00521) 5.8 % HEMOGLOBIN A1c [ADDED]2022-03-06 00:00:00 Test Item Value Reference Range Interpretation Comments HEMOGLOBIN A1c (test code = 61810) 5.8 % HEMOGLOBIN A1c [ADDED]2022-03-06 00:00:00 Test Item Value Reference Range Interpretation Comments HEMOGLOBIN A1c (test code = 50948) 5.8 % LIPID PANEL [ADDED]2022-03-06 00:00:00 Test Item Value Reference Range Interpretation Comments CHOLESTEROL (test code = 2210) 233 MG/DL TRIGLYCERIDES (test code = 2232) 125 MG/DL HDL CHOLESTEROL (test code = 2220) 68 MG/DL CALC LDL CHOL (test code = 2237) 140 MG/DL RISK RATIO LDL/HDL (test code = 2.06 RATIO 2238) LIPID PANEL [ADDED]2022-03-06 00:00:00 Test Item Value Reference Range Interpretation Comments CHOLESTEROL (test code = 2210) 233 MG/DL TRIGLYCERIDES (test code = 2232) 125 MG/DL HDL CHOLESTEROL (test code = 2220) 68 MG/DL CALC LDL CHOL (test code = 2237) 140 MG/DL RISK RATIO LDL/HDL (test code = 2.06 RATIO 2238) COMPREHENSIVE METABOLIC PANEL [ADDED]2022-03-06 00:00:00 Test Item Value Reference Range Interpretation Comments GLUCOSE (test code = 2217) 106 MG/DL BUN (test code = 2208) 12 MG/DL CREATININE (test code = 2214) 0.48 MG/DL eGFR (2020 CKD-EPI) (test 108 ML/MIN/1.73 code = 13277) CALC BUN/CREAT (test code = 25 RATIO 2235) SODIUM (test code = 2231) 145 MEQ/L POTASSIUM (test code = 2228) 4.4 MEQ/L CHLORIDE (test code = 2215) 105 MEQ/L CARBON DIOXIDE (test code = 29 MEQ/L 2205) CALCIUM (test code = 2209) 9.9 MG/DL PROTEIN, TOTAL (test code = 7.5 G/DL 2228) ALBUMIN (test code = 2201) 4.7 G/DL CALC GLOBULIN (test code = 2.8 G/DL 2239) CALC A/G RATIO (test code = 1.7 RATIO 2234) BILIRUBIN, TOTAL (test code = 0.5 MG/DL 2206) ALKALINE PHOSPHATASE (test 110 U/L code = 2204) AST (test code = 2218) 20 U/L ALT (test code = 2219) 17 U/L COMPREHENSIVE METABOLIC PANEL [ADDED]2022-03-06 00:00:00 Test Item Value Reference Range Interpretation Comments GLUCOSE (test code = 2217) 106 MG/DL BUN (test code = 2208) 12 MG/DL CREATININE (test code = 2214) 0.48 MG/DL eGFR (2020 CKD-EPI) (test 108 ML/MIN/1.73 code = 57287) CALC BUN/CREAT (test code = 25 RATIO 2235) SODIUM (test code = 2231) 145 MEQ/L POTASSIUM (test code = 2228) 4.4 MEQ/L CHLORIDE (test code = 2215) 105 MEQ/L CARBON DIOXIDE (test code = 29 MEQ/L 220) CALCIUM (test code = 2209) 9.9 MG/DL PROTEIN, TOTAL (test code = 7.5 G/DL 2228) ALBUMIN (test code = 2201) 4.7 G/DL CALC GLOBULIN (test code = 2.8 G/DL 2240) CALC A/G RATIO (test code = 1.7 RATIO 2234) BILIRUBIN, TOTAL (test code = 0.5 MG/DL 2206) ALKALINE PHOSPHATASE (test 110 U/L code = 2204) AST (test code = 2218) 20 U/L ALT (test code = 2219) 17 U/L HEMOGLOBIN A1c [ADDED]2022-03-06 00:00:00 Test Item Value Reference Range Interpretation Comments HEMOGLOBIN A1c (test code = 28120) 5.8 % HEMOGLOBIN A1c [ADDED]2022-03-06 00:00:00 Test Item Value Reference Range Interpretation Comments HEMOGLOBIN A1c (test code = 34552) 5.8 % LIPID PANEL [ADDED]2022-03-06 00:00:00 Test Item Value Reference Range Interpretation Comments CHOLESTEROL (test code = 2210) 233 MG/DL TRIGLYCERIDES (test code = 2232) 125 MG/DL HDL CHOLESTEROL (test code = 2220) 68 MG/DL CALC LDL CHOL (test code = 2237) 140 MG/DL RISK RATIO LDL/HDL (test code = 2.06 RATIO 2238) COMPREHENSIVE METABOLIC PANEL [ADDED]2022-03-06 00:00:00 Test Item Value Reference Range Interpretation Comments GLUCOSE (test code = 2217) 106 MG/DL BUN (test code = 2208) 12 MG/DL CREATININE (test code = 2214) 0.48 MG/DL eGFR (2020 CKD-EPI) (test 108 ML/MIN/1.73 code = 19004) CALC BUN/CREAT (test code = 25 RATIO 2235) SODIUM (test code = 2231) 145 MEQ/L POTASSIUM (test code = 2228) 4.4 MEQ/L CHLORIDE (test code = 2215) 105 MEQ/L CARBON DIOXIDE (test code = 29 MEQ/L 2205) CALCIUM (test code = 2209) 9.9 MG/DL PROTEIN, TOTAL (test code = 7.5 G/DL 2228) ALBUMIN (test code = 220) 4.7 G/DL CALC GLOBULIN (test code = 2.8 G/DL 2240) CALC A/G RATIO (test code = 1.7 RATIO 2234) BILIRUBIN, TOTAL (test code = 0.5 MG/DL 2206) ALKALINE PHOSPHATASE (test 110 U/L code = 2204) AST (test code = 2218) 20 U/L ALT (test code = 2219) 17 U/L PAP TEST, THINPREP, [id number] 09:11:43 Test Item Value Reference Range Interpretation Comments SOURCE: (test Endocervical code = 8001) SLIDES: (test 1 code = 8011) LMP: (test code YEARS AGO = 8021) SPECIMEN (NOTE) Satisfactory f or ADEQUACY: (test evaluation. code = 87515) Endocervical c ells absent. Metapla stic cells indicativ e of transformation zone cannot be relia travon distinguished f rom parabasal or at rophic cells. INTERPRETATION: NILM/NO EPITH. (test code = ABNORMALITY;SEE 32652) BELOW ------- ---- NEGATI VE FOR INTRAEPITHELIAL LESION OR MALIGNANCY ( NILM) ------- ------- ------- ------- CYTOTECHNOLOGIS RANDAL Farris T: (test code = GERRIGUS,CT(ASCP) 8101) LOCATION: (test (NOTE) Specimens pr ocessed code = 89171) and interprete [facility], [address] [place] [address]40 [id number], Phone: , CLIA: [id number] CPT: (test code (NOTE) 50729 UNLESS OTHERWISE = 8140) INDICATED, COMP UTER AIDED AND CYTOTECHNOLOGIS T SCREENING PERFO RMED. The Pap test is a screening test with an inherent, but l ow probability of error. Your patient sh ould be reminded to con sult you immediately if she experiences any suspicious sign s or symptoms, regar dless of her Pap test result. An alte rnate report format containing imag es or consolidated pr ior Pap history is koby arrieta as applicable. HPV HIGH RISK WITH GENOTYPE, [id number] 09:08:17 Test Item Value Reference Range Interpretation Comments HPV HIGH RISK INTERP NEGATIVE NEGATIVE (test code = 40750) HPV 16 (test code = NEGATIVE 56997) HPV 18 (test code = NEGATIVE 81156) HPV, HR, OTHER NEGATIVE Testing meth odology is GENOTYPES (test code real-ti me PCR utilizing = 36851) hydrolysis prob es with the [employer] RXas 4800 system. The alexys t individually de tects genotypes 16 an d 18, as well as the oth er 12 high risk types (31,33,35,39,45 ,51,52,56 ,58,59,66,68). The expected result is negative. A neg ative result does not rule out the presence of HPV not included in the genotype set, a low leve l of infection or sp ecimen sampling error. UNLESS OTHERWISE INDIC ATED, ALL TESTING PERFORM ED [facility], [address] [address] LABORATORY DIRE CTOR: PAULA FARLEY M.D. CLIA NUMBER [id number] [place] [id number] PAP TEST, THINPREP, [id number] 00:00:00 Test Item Value Reference Range Interpretation Comments SOURCE: (test code = Endocervical 800) SLIDES: (test code = 1 8011) LMP: (test code = YEARS AGO 8021) SPECIMEN ADEQUACY: (NOTE) (test code = 64308) INTERPRETATION: (test NILM/NO EPITH. code = 60847) ABNORMALITY;SEE BELOW INSPECTOR: RANDAL Farris (test code = 8101) MOISES SAEED(ASCP) LOCATION: (test code (NOTE) = 17696) CPT: (test code = (NOTE) 8140) PAP TEST, THINPREP, [id number] 00:00:00 Test Item Value Reference Range Interpretation Comments SOURCE: (test code = Endocervical 8001) SLIDES: (test code = 1 8011) LMP: (test code = YEARS AGO 8021) SPECIMEN ADEQUACY: (NOTE) (test code = 36524) INTERPRETATION: (test NILM/NO EPITH. code = 32670) ABNORMALITY;SEE BELOW INSPECTOR: RANDAL Farris (test code = 8101) MOISES SAEED(ASCP) LOCATION: (test code (NOTE) = 15994) CPT: (test code = (NOTE) 8140) HPV HIGH RISK WITH GENOTYPE, [id number] 00:00:00 Test Item Value Reference Range Interpretation Comments HPV HIGH RISK INTERP (test code = NEGATIVE 51885) HPV 16 (test code = 53283) NEGATIVE HPV 18 (test code = 88989) NEGATIVE HPV, HR, OTHER GENOTYPES (test code NEGATIVE = 68285) HPV HIGH RISK WITH GENOTYPE, [id number] 00:00:00 Test Item Value Reference Range Interpretation Comments HPV HIGH RISK INTERP (test code = NEGATIVE 32930) HPV 16 (test code = 32954) NEGATIVE HPV 18 (test code = 15884) NEGATIVE HPV, HR, OTHER GENOTYPES (test code NEGATIVE = 91948) PAP TEST, THINPREP, [id number] 00:00:00 Test Item Value Reference Range Interpretation Comments SOURCE: (test code = Endocervical 8001) SLIDES: (test code = 1 8011) LMP: (test code = YEARS AGO 8021) SPECIMEN ADEQUACY: (NOTE) (test code = 31763) INTERPRETATION: (test NILM/NO EPITH. code = 39443) ABNORMALITY;SEE BELOW INSPECTOR: RANDAL Farris (test code = 8101) MOISES SAEED(ASCP) LOCATION: (test code (NOTE) = 71127) CPT: (test code = (NOTE) 8140) HPV HIGH RISK WITH GENOTYPE, [id number] 00:00:00 Test Item Value Reference Range Interpretation Comments HPV HIGH RISK INTERP (test code = NEGATIVE 59253) HPV 16 (test code = 04325) NEGATIVE HPV 18 (test code = 78042) NEGATIVE HPV, HR, OTHER GENOTYPES (test code NEGATIVE = 71778) COMPREHENSIVE METABOLIC [id number] 06:39:24 Test Item Value Reference Range Interpretation Comments GLUCOSE (test code = 103 MG/DL 70-99 H 2216) BUN (test code = 7 MG/DL 6-20 2207) CREATININE (test 0.44 MG/DL 0.60-1.30 L code = 2214) eGFR (2020 CKD-EPI) 111 >60 (test code = 71076) ML/MIN/1.73 CALC BUN/CREAT (test 16 RATIO 6-28 code = 223) SODIUM (test code = 145 MEQ/L 521-762 0654) POTASSIUM (test code 4.2 MEQ/L 3.5-5.4 = 2227) CHLORIDE (test code 104 MEQ/L 95-107 = 2214) CARBON DIOXIDE (test 29 MEQ/L 19-31 code = 220) CALCIUM (test code = 9.8 MG/DL 8.5-10.5 2208) PROTEIN, TOTAL (test 7.3 G/DL 6.1-8.3 code = 2228) ALBUMIN (test code = 4.8 G/DL 3.5-5.2 2200) CALC GLOBULIN (test 2.5 G/DL 1.9-3.7 code = 2239) CALC A/G RATIO (test 1.9 RATIO 1.0-2.6 code = 2233) BILIRUBIN, TOTAL 0.3 MG/DL See_Comment [Automated message] (test code = 2206) The syste [employer] which generated this result transmitted ref erence range: <=1.2. T he reference range was not used to int erpret this result as normal/abnormal . ALKALINE PHOSPHATASE 134 U/L 40-136 (test code = 2203) AST (test code = 28 U/L 9-40 2217) ALT (test code = 54 U/L 5-40 H UNLESS OTH ERWISE 2218) INDICATED, ALL TESTING PERFORM ED ATCLINICAL PATH [facility]LOGY [facility], [facility]. [address] [place] [id number] [place] [address] DIRECTOR: Torres MIDDLETON NUMBER [id number] CAP ACCREDITATION N O. [id number] HEMOGLOBIN [id number] 05:46:50 Test Item Value Reference Range Interpretation Comments HEMOGLOBIN A1c (test code = 29821) 5.8 % 4.2-5.6 H HEMOGLOBIN [id number] 00:00:00 Test Item Value Reference Range Interpretation Comments HEMOGLOBIN A1c (test code = 36345) 5.8 % HEMOGLOBIN [id number] 00:00:00 Test Item Value Reference Range Interpretation Comments HEMOGLOBIN A1c (test code = 07021) 5.8 % HEMOGLOBIN [id number] 00:00:00 Test Item Value Reference Range Interpretation Comments HEMOGLOBIN A1c (test code = 13893) 5.8 % COMPREHENSIVE METABOLIC [id number] 00:00:00 Test Item Value Reference Range Interpretation Comments GLUCOSE (test code = 2217) 103 MG/DL BUN (test code = 2208) 7 MG/DL CREATININE (test code = 2214) 0.44 MG/DL eGFR (2020 CKD-EPI) (test 111 ML/MIN/1.73 code = 25584) CALC BUN/CREAT (test code = 16 RATIO 2235) SODIUM (test code = 2231) 145 MEQ/L POTASSIUM (test code = 2228) 4.2 MEQ/L CHLORIDE (test code = 2215) 104 MEQ/L CARBON DIOXIDE (test code = 29 MEQ/L 2205) CALCIUM (test code = 2209) 9.8 MG/DL PROTEIN, TOTAL (test code = 7.3 G/DL 2228) ALBUMIN (test code = 2201) 4.8 G/DL CALC GLOBULIN (test code = 2.5 G/DL 2239) CALC A/G RATIO (test code = 1.9 RATIO 2233) BILIRUBIN, TOTAL (test code = 0.3 MG/DL 2206) ALKALINE PHOSPHATASE (test 134 U/L code = 2204) AST (test code = 2218) 28 U/L ALT (test code = 2219) 54 U/L COMPREHENSIVE METABOLIC [id number] 00:00:00 Test Item Value Reference Range Interpretation Comments GLUCOSE (test code = 2217) 103 MG/DL BUN (test code = 2208) 7 MG/DL CREATININE (test code = 2214) 0.44 MG/DL eGFR (2020 CKD-EPI) (test 111 ML/MIN/1.73 code = 60114) CALC BUN/CREAT (test code = 16 RATIO 2235) SODIUM (test code = 2231) 145 MEQ/L POTASSIUM (test code = 2228) 4.2 MEQ/L CHLORIDE (test code = 2215) 104 MEQ/L CARBON DIOXIDE (test code = 29 MEQ/L 2205) CALCIUM (test code = 2209) 9.8 MG/DL PROTEIN, TOTAL (test code = 7.3 G/DL 2228) ALBUMIN (test code = 2201) 4.8 G/DL CALC GLOBULIN (test code = 2.5 G/DL 2240) CALC A/G RATIO (test code = 1.9 RATIO 2234) BILIRUBIN, TOTAL (test code = 0.3 MG/DL 2206) ALKALINE PHOSPHATASE (test 134 U/L code = 2204) AST (test code = 2218) 28 U/L ALT (test code = 2219) 54 U/L HEMOGLOBIN [id number] 00:00:00 Test Item Value Reference Range Interpretation Comments HEMOGLOBIN A1c (test code = 98584) 5.8 % HEMOGLOBIN [id number] 00:00:00 Test Item Value Reference Range Interpretation Comments HEMOGLOBIN A1c (test code = 81644) 5.8 % COMPREHENSIVE METABOLIC [id number] 00:00:00 Test Item Value Reference Range Interpretation Comments GLUCOSE (test code = 2217) 103 MG/DL BUN (test code = 2208) 7 MG/DL CREATININE (test code = 2214) 0.44 MG/DL eGFR (2020 CKD-EPI) (test 111 ML/MIN/1.73 code = 84995) CALC BUN/CREAT (test code = 16 RATIO 2235) SODIUM (test code = 2231) 145 MEQ/L POTASSIUM (test code = 2228) 4.2 MEQ/L CHLORIDE (test code = 2215) 104 MEQ/L CARBON DIOXIDE (test code = 29 MEQ/L 2205) CALCIUM (test code = 2209) 9.8 MG/DL PROTEIN, TOTAL (test code = 7.3 G/DL 2228) ALBUMIN (test code = 2201) 4.8 G/DL CALC GLOBULIN (test code = 2.5 G/DL 2240) CALC A/G RATIO (test code = 1.9 RATIO 2234) BILIRUBIN, TOTAL (test code = 0.3 MG/DL 2206) ALKALINE PHOSPHATASE (test 134 U/L code = 2204) AST (test code = 2218) 28 U/L ALT (test code = 2219) 54 U/L CBC W/AUTO DIFF WITH [id number] 09:12:44 Test Item Value Reference Range Interpretation Comments WBC (test code = 5.4 K/UL 3.5-11.0 1001) RBC (test code = 4.95 M/UL 3.80-5.40 1002) HEMOGLOBIN (test code 14.4 G/DL 11.5-15.5 = 1003) HEMATOCRIT (test code 42.9 % 34.0-45.0 = 1004) MCV (test code = 86.7 fL 80.0-99.0 1005) MCH (test code = 29.1 PG 25.0-33.0 1006) MCHC (test code = 33.6 G/DL 31.0-36.0 1007) RDW (test code = 11.9 % 11.5-15.0 1038) NEUTROPHILS (test 52.8 % code = 1008) LYMPHOCYTES (test 37.6 % code = 1010) MONOCYTES (test code 7.2 % = 1011) EOSINOPHILS (test 1.1 % code = 1012) BASOPHILS (test code 1.1 % = 1013) IMMATURE GRANYLOCYTES 0.2 % (test code = 1036) NUCLEATED RBCS (test 0.0 /100 WBC'S See_Comment [Aut omated code = 1065) message] The sy stem which generated this result transmitted reference range : 0.0. The refere nce range was not u sed to interpret th is result as normal/abnormal . PLATELET COUNT (test 256 K/UL 130-400 code = 1015) ABSOLUTE NEUTROPHILS 2.86 K/UL 1.50-7.50 (test code = 1066) ABSOLUTE LYMPHOCYTES 2.04 K/UL 1.00-4.00 (test code = 1067) ABSOLUTE MONOCYTES 0.39 K/UL 0.20-1.00 (test code = 1068) ABSOLUTE EOSINOPHILS 0.06 K/UL 0.00-0.50 (test code = 1040) ABSOLUTE BASOPHILS 0.06 K/UL 0.00-0.20 (test code = 1069) ABS IMMATURE 0.01 K/UL 0.00-0.10 GRANULOCYTES (test code = 1020) ABS NUCLEATED RBCS 0.00 K/UL 0.00-0.11 (test code = 11193) VITAMIN D, 25 [id number] 06:37:13 Test Item Value Reference Range Interpretation Comments VITAMIN D, 25 OH 17 NG/ML SEE BELOW L NOTE: 25-H YDROXYVITAMIN D (test code = 4958) ASSAY INC LUDES 25-HYDROXYVITAM IN D2 AND D3. METHODOLOGY IS CHEMILUMINESCEN T IMMUNOASSAY. INTERPRETIVE RA NGES PEDIATRIC (<17 YEARS) . . . . . . . . . . . NG/ML 20-100ADULT: IN SUFFICIENT . . . . . . . . . . . . . . NG/ML <20 SUBOP TIMAL . . . . . . . . . . . . . . . NG/ML 20-29 OPT IMAL . . . . . . . . . . . . . . . . . NG/ML 30-100 LIPID [id number] 06:04:00 Test Item Value Reference Range Interpretation Comments CHOLESTEROL (test 234 MG/DL <200 H code = 2210) TRIGLYCERIDES (test 237 MG/DL <150 H code = 2232) HDL CHOLESTEROL (test 62 MG/DL >39 code = 2220) CALC LDL CHOL (test 134 MG/DL <100 H NOTE: C ALCULATED LDL code = 2237) IS BASED ON ZENOBIA-SHERIFF METHOD WHICHINCLUDES ADJUSTABLE TRIGLYCERIDE:VL DL CHOLESTEROL RAT IO.THIS FACTOR VARIES B Y MEASURED TRIGLY CERIDE AND NON-HDLCHOL ESTEROL CONCENTRATIONS WITH INCREASED CALCU LATED LDL SEENIN HIGH ER TRIGLYCERIDE OR LOWER NON-HDL SPECIME NS. FOR MOREINFORMATION , SEE CLIENT ANNOUNCE MENT AT [email or web address] RATIO LDL/HDL 2.16 RATIO <3.22 (test code = 2238) COMPREHENSIVE METABOLIC [id number] 06:04:00 Test Item Value Reference Range Interpretation Comments GLUCOSE (test code = 112 MG/DL 70-99 H 2216) BUN (test code = 15 MG/DL 6-20 2207) CREATININE (test 0.47 MG/DL 0.60-1.30 L code = 2214) eGFR (2020 CKD-EPI) 110 >60 (test code = 52104) ML/MIN/1.73 CALC BUN/CREAT (test 32 RATIO 6-28 H code = 2235) SODIUM (test code = 149 MEQ/L 133-146 H 2230) POTASSIUM (test code 5.4 MEQ/L 3.5-5.4 = 2227) CHLORIDE (test code 105 MEQ/L 95-107 = 2214) CARBON DIOXIDE (test 26 MEQ/L 19-31 code = 220) CALCIUM (test code = 10.2 MG/DL 8.5-10.5 2208) PROTEIN, TOTAL (test 7.2 G/DL 6.1-8.3 code = 2229) ALBUMIN (test code = 4.8 G/DL 3.5-5.2 2200) CALC GLOBULIN (test 2.4 G/DL 1.9-3.7 code = 2240) CALC A/G RATIO (test 2.0 RATIO 1.0-2.6 code = 2234) BILIRUBIN, TOTAL 0.3 MG/DL See_Comment [Automated message] (test code = 2206) The syste m which generated this result transmit therese reference range : <=1.2. The refe rence range was not u sed to interpret th is result as normal/abnormal . ALKALINE PHOSPHATASE 148 U/L 40-136 H (test code = 2203) AST (test code = 32 U/L 9-40 2217) ALT (test code = 63 U/L 5-40 H 2218) HIV 1/2 4TH GEN, RFLX [id number] 05:41:20 Test Item Value Reference Range Interpretation Comments HIV 1/2 4TH GEN, RFLX CONF (test NON-REACTIVE NON-REACTIVE code = 3514) HEPATITIS PANEL, [id number] 05:41:20 Test Item Value Reference Range Interpretation Comments HEPATITIS A IgM (test NON-REACTIVE NON-REACTIVE code = 65695) HEPATITIS B CORE IgM NON-REACTIVE NON-REACTIVE (test code = 4644) HEPATITIS B SURF AG NON-REACTIVE NON-REACTIVE (test code = 2739) HEPATITIS C ANTIBODY NON-REACTIVE NON-REACTIVE (test code = 4675) INTERPRETATION (NOTE) Hepatitis A HEPATITIS A: (test serology shows no code = 2552) evidence of acu te hepatitis A. INTERPRETATION (NOTE) Hepatitis B HEPATITIS B: (test serology shows no code = 68240) evidence of ac [place] hepatitis B and no indication of exposure to hepatitis B vir us in the previous si xto eight months. INTERPRETATION (NOTE) Hepatitis C HEPATITIS C: (test serology shows no code = 48905) evidence of ex posure to hepatitisC v irus at this time. I t can take up to 12 m onths after exposure tothe hepatitis C vir us for antibodies to become detectab le in the blood in ce rtain patients. UNLES S OTHERWISE INDIC ATED, ALL TESTING PERFORMED [facility], [place]. [address] [place] [address] [facility] DIRECTOR: PAULA MALONEY M.D. CLIA NUMBER [id number] [address] [place] [address] NO. [id number] CBC W/AUTO [id number] 00:00:00 Test Item Value Reference Range Interpretation Comments WBC (test code = 1001) 5.4 K/UL RBC (test code = 1002) 4.95 M/UL HEMOGLOBIN (test code = 1003) 14.4 G/DL HEMATOCRIT (test code = 1004) 42.9 % MCV (test code = 1005) 86.7 fL MCH (test code = 1006) 29.1 PG MCHC (test code = 1007) 33.6 G/DL RDW (test code = 1038) 11.9 % NEUTROPHILS (test code = 1008) 52.8 % LYMPHOCYTES (test code = 1010) 37.6 % MONOCYTES (test code = 1011) 7.2 % EOSINOPHILS (test code = 1012) 1.1 % BASOPHILS (test code = 1013) 1.1 % IMMATURE GRANYLOCYTES (test 0.2 % code = 1036) NUCLEATED RBCS (test code = 0.0 /100WBC'S 1065) PLATELET COUNT (test code = 256 K/UL 1015) ABSOLUTE NEUTROPHILS (test code 2.86 K/UL = 1066) ABSOLUTE LYMPHOCYTES (test code 2.04 K/UL = 1067) ABSOLUTE MONOCYTES (test code = 0.39 K/UL 1068) ABSOLUTE EOSINOPHILS (test code 0.06 K/UL = 1040) ABSOLUTE BASOPHILS (test code = 0.06 K/UL 1069) ABS IMMATURE GRANULOCYTES (test 0.01 K/UL code = 1020) ABS NUCLEATED RBCS (test code = 0.00 K/UL 17798) CBC W/AUTO [id number] 00:00:00 Test Item Value Reference Range Interpretation Comments WBC (test code = 1001) 5.4 K/UL RBC (test code = 1002) 4.95 M/UL HEMOGLOBIN (test code = 1003) 14.4 G/DL HEMATOCRIT (test code = 1004) 42.9 % MCV (test code = 1005) 86.7 fL MCH (test code = 1006) 29.1 PG MCHC (test code = 1007) 33.6 G/DL RDW (test code = 1038) 11.9 % NEUTROPHILS (test code = 1008) 52.8 % LYMPHOCYTES (test code = 1010) 37.6 % MONOCYTES (test code = 1011) 7.2 % EOSINOPHILS (test code = 1012) 1.1 % BASOPHILS (test code = 1013) 1.1 % IMMATURE GRANYLOCYTES (test 0.2 % code = 1036) NUCLEATED RBCS (test code = 0.0 /100WBC'S 1065) PLATELET COUNT (test code = 256 K/UL 1015) ABSOLUTE NEUTROPHILS (test code 2.86 K/UL = 1066) ABSOLUTE LYMPHOCYTES (test code 2.04 K/UL = 1067) ABSOLUTE MONOCYTES (test code = 0.39 K/UL 1068) ABSOLUTE EOSINOPHILS (test code 0.06 K/UL = 1040) ABSOLUTE BASOPHILS (test code = 0.06 K/UL 1069) ABS IMMATURE GRANULOCYTES (test 0.01 K/UL code = 1020) ABS NUCLEATED RBCS (test code = 0.00 K/UL 57756) CBC W/AUTO [id number] 00:00:00 Test Item Value Reference Range Interpretation Comments WBC (test code = 1001) 5.4 K/UL RBC (test code = 1002) 4.95 M/UL HEMOGLOBIN (test code = 1003) 14.4 G/DL HEMATOCRIT (test code = 1004) 42.9 % MCV (test code = 1005) 86.7 fL MCH (test code = 1006) 29.1 PG MCHC (test code = 1007) 33.6 G/DL RDW (test code = 1038) 11.9 % NEUTROPHILS (test code = 1008) 52.8 % LYMPHOCYTES (test code = 1010) 37.6 % MONOCYTES (test code = 1011) 7.2 % EOSINOPHILS (test code = 1012) 1.1 % BASOPHILS (test code = 1013) 1.1 % IMMATURE GRANYLOCYTES (test 0.2 % code = 1036) NUCLEATED RBCS (test code = 0.0 /100WBC'S 1065) PLATELET COUNT (test code = 256 K/UL 1015) ABSOLUTE NEUTROPHILS (test code 2.86 K/UL = 1066) ABSOLUTE LYMPHOCYTES (test code 2.04 K/UL = 1067) ABSOLUTE MONOCYTES (test code = 0.39 K/UL 1068) ABSOLUTE EOSINOPHILS (test code 0.06 K/UL = 1040) ABSOLUTE BASOPHILS (test code = 0.06 K/UL 1069) ABS IMMATURE GRANULOCYTES (test 0.01 K/UL code = 1020) ABS NUCLEATED RBCS (test code = 0.00 K/UL 01519) COMPREHENSIVE METABOLIC [id number] 00:00:00 Test Item Value Reference Range Interpretation Comments GLUCOSE (test code = 2217) 112 MG/DL BUN (test code = 2208) 15 MG/DL CREATININE (test code = 2214) 0.47 MG/DL eGFR (2020 CKD-EPI) (test 110 ML/MIN/1.73 code = 12868) CALC BUN/CREAT (test code = 32 RATIO 2235) SODIUM (test code = 2231) 149 MEQ/L POTASSIUM (test code = 2228) 5.4 MEQ/L CHLORIDE (test code = 2215) 105 MEQ/L CARBON DIOXIDE (test code = 26 MEQ/L 2205) CALCIUM (test code = 2209) 10.2 MG/DL PROTEIN, TOTAL (test code = 7.2 G/DL 2228) ALBUMIN (test code = 2201) 4.8 G/DL CALC GLOBULIN (test code = 2.4 G/DL 0) CALC A/G RATIO (test code = 2.0 RATIO 2233) BILIRUBIN, TOTAL (test code = 0.3 MG/DL 2206) ALKALINE PHOSPHATASE (test 148 U/L code = 2204) AST (test code = 2218) 32 U/L ALT (test code = 2219) 63 U/L COMPREHENSIVE METABOLIC [id number] 00:00:00 Test Item Value Reference Range Interpretation Comments GLUCOSE (test code = 2217) 112 MG/DL BUN (test code = 2208) 15 MG/DL CREATININE (test code = 2214) 0.47 MG/DL eGFR (2020 CKD-EPI) (test 110 ML/MIN/1.73 code = 60996) CALC BUN/CREAT (test code = 32 RATIO 2235) SODIUM (test code = 2231) 149 MEQ/L POTASSIUM (test code = 2228) 5.4 MEQ/L CHLORIDE (test code = 2215) 105 MEQ/L CARBON DIOXIDE (test code = 26 MEQ/L 220) CALCIUM (test code = 2209) 10.2 MG/DL PROTEIN, TOTAL (test code = 7.2 G/DL 2228) ALBUMIN (test code = 2201) 4.8 G/DL CALC GLOBULIN (test code = 2.4 G/DL 2240) CALC A/G RATIO (test code = 2.0 RATIO 2234) BILIRUBIN, TOTAL (test code = 0.3 MG/DL 2206) ALKALINE PHOSPHATASE (test 148 U/L code = 2204) AST (test code = 2218) 32 U/L ALT (test code = 2219) 63 U/L LIPID [id number] 00:00:00 Test Item Value Reference Range Interpretation Comments CHOLESTEROL (test code = 2210) 234 MG/DL TRIGLYCERIDES (test code = 2232) 237 MG/DL HDL CHOLESTEROL (test code = 2220) 62 MG/DL CALC LDL CHOL (test code = 2237) 134 MG/DL RISK RATIO LDL/HDL (test code = 2.16 RATIO 2238) LIPID [id number] 00:00:00 Test Item Value Reference Range Interpretation Comments CHOLESTEROL (test code = 2210) 234 MG/DL TRIGLYCERIDES (test code = 2232) 237 MG/DL HDL CHOLESTEROL (test code = 2220) 62 MG/DL CALC LDL CHOL (test code = 2237) 134 MG/DL RISK RATIO LDL/HDL (test code = 2.16 RATIO 2238) VITAMIN D, 25 [id number] 00:00:00 Test Item Value Reference Range Interpretation Comments VITAMIN D, 25 OH (test code = 4958) 17 NG/ML VITAMIN D, 25 [id number] 00:00:00 Test Item Value Reference Range Interpretation Comments VITAMIN D, 25 OH (test code = 4958) 17 NG/ML HIV AB/AG COMBO RFLX [id number] 00:00:00 Test Item Value Reference Range Interpretation Comments HIV 1/2 4TH GEN, RFLX CONF (test NON-REACTIVE code = 3514) HIV AB/AG COMBO RFLX [id number] 00:00:00 Test Item Value Reference Range Interpretation Comments HIV 1/2 4TH GEN, RFLX CONF (test NON-REACTIVE code = 3514) ACUTE HEPATITIS [id number] 00:00:00 Test Item Value Reference Range Interpretation Comments HEPATITIS A IgM (test code = NON-REACTIVE 38457) HEPATITIS B CORE IgM (test code NON-REACTIVE = 4644) HEPATITIS B SURF AG (test code = NON-REACTIVE 2739) HEPATITIS C ANTIBODY (test code NON-REACTIVE = 4675) INTERPRETATION HEPATITIS A: (NOTE) (test code = 2552) INTERPRETATION HEPATITIS B: (NOTE) (test code = 51871) INTERPRETATION HEPATITIS C: (NOTE) (test code = 90222) ACUTE HEPATITIS [id number] 00:00:00 Test Item Value Reference Range Interpretation Comments HEPATITIS A IgM (test code = NON-REACTIVE 58668) HEPATITIS B CORE IgM (test code NON-REACTIVE = 4644) HEPATITIS B SURF AG (test code = NON-REACTIVE 2739) HEPATITIS C ANTIBODY (test code NON-REACTIVE = 4675) INTERPRETATION HEPATITIS A: (NOTE) (test code = 2552) INTERPRETATION HEPATITIS B: (NOTE) (test code = 65866) INTERPRETATION HEPATITIS C: (NOTE) (test code = 81835) CBC W/AUTO [id number] 00:00:00 Test Item Value Reference Range Interpretation Comments WBC (test code = 1001) 5.4 K/UL RBC (test code = 1002) 4.95 M/UL HEMOGLOBIN (test code = 1003) 14.4 G/DL HEMATOCRIT (test code = 1004) 42.9 % MCV (test code = 1005) 86.7 fL MCH (test code = 1006) 29.1 PG MCHC (test code = 1007) 33.6 G/DL RDW (test code = 1038) 11.9 % NEUTROPHILS (test code = 1008) 52.8 % LYMPHOCYTES (test code = 1010) 37.6 % MONOCYTES (test code = 1011) 7.2 % EOSINOPHILS (test code = 1012) 1.1 % BASOPHILS (test code = 1013) 1.1 % IMMATURE GRANYLOCYTES (test 0.2 % code = 1036) NUCLEATED RBCS (test code = 0.0 /100WBC'S 1065) PLATELET COUNT (test code = 256 K/UL 1015) ABSOLUTE NEUTROPHILS (test code 2.86 K/UL = 1066) ABSOLUTE LYMPHOCYTES (test code 2.04 K/UL = 1067) ABSOLUTE MONOCYTES (test code = 0.39 K/UL 1068) ABSOLUTE EOSINOPHILS (test code 0.06 K/UL = 1040) ABSOLUTE BASOPHILS (test code = 0.06 K/UL 1069) ABS IMMATURE GRANULOCYTES (test 0.01 K/UL code = 1020) ABS NUCLEATED RBCS (test code = 0.00 K/UL 02940) CBC W/AUTO [id number] 00:00:00 Test Item Value Reference Range Interpretation Comments WBC (test code = 1001) 5.4 K/UL RBC (test code = 1002) 4.95 M/UL HEMOGLOBIN (test code = 1003) 14.4 G/DL HEMATOCRIT (test code = 1004) 42.9 % MCV (test code = 1005) 86.7 fL MCH (test code = 1006) 29.1 PG MCHC (test code = 1007) 33.6 G/DL RDW (test code = 1038) 11.9 % NEUTROPHILS (test code = 1008) 52.8 % LYMPHOCYTES (test code = 1010) 37.6 % MONOCYTES (test code = 1011) 7.2 % EOSINOPHILS (test code = 1012) 1.1 % BASOPHILS (test code = 1013) 1.1 % IMMATURE GRANYLOCYTES (test 0.2 % code = 1036) NUCLEATED RBCS (test code = 0.0 /100WBC'S 1065) PLATELET COUNT (test code = 256 K/UL 1015) ABSOLUTE NEUTROPHILS (test code 2.86 K/UL = 1066) ABSOLUTE LYMPHOCYTES (test code 2.04 K/UL = 1067) ABSOLUTE MONOCYTES (test code = 0.39 K/UL 1068) ABSOLUTE EOSINOPHILS (test code 0.06 K/UL = 1040) ABSOLUTE BASOPHILS (test code = 0.06 K/UL 1069) ABS IMMATURE GRANULOCYTES (test 0.01 K/UL code = 1020) ABS NUCLEATED RBCS (test code = 0.00 K/UL 66893) COMPREHENSIVE METABOLIC [id number] 00:00:00 Test Item Value Reference Range Interpretation Comments GLUCOSE (test code = 2217) 112 MG/DL BUN (test code = 2208) 15 MG/DL CREATININE (test code = 2214) 0.47 MG/DL eGFR (2020 CKD-EPI) (test 110 ML/MIN/1.73 code = 76188) CALC BUN/CREAT (test code = 32 RATIO 2235) SODIUM (test code = 2231) 149 MEQ/L POTASSIUM (test code = 2228) 5.4 MEQ/L CHLORIDE (test code = 2215) 105 MEQ/L CARBON DIOXIDE (test code = 26 MEQ/L 2205) CALCIUM (test code = 2209) 10.2 MG/DL PROTEIN, TOTAL (test code = 7.2 G/DL 2228) ALBUMIN (test code = 2201) 4.8 G/DL CALC GLOBULIN (test code = 2.4 G/DL 2239) CALC A/G RATIO (test code = 2.0 RATIO 2234) BILIRUBIN, TOTAL (test code = 0.3 MG/DL 2206) ALKALINE PHOSPHATASE (test 148 U/L code = 2204) AST (test code = 2218) 32 U/L ALT (test code = 2219) 63 U/L LIPID [id number] 00:00:00 Test Item Value Reference Range Interpretation Comments CHOLESTEROL (test code = 2210) 234 MG/DL TRIGLYCERIDES (test code = 2232) 237 MG/DL HDL CHOLESTEROL (test code = 2220) 62 MG/DL CALC LDL CHOL (test code = 2237) 134 MG/DL RISK RATIO LDL/HDL (test code = 2.16 RATIO 2238) VITAMIN D, 25 [id number] 00:00:00 Test Item Value Reference Range Interpretation Comments VITAMIN D, 25 OH (test code = 4958) 17 NG/ML HIV AB/AG COMBO RFLX [id number] 00:00:00 Test Item Value Reference Range Interpretation Comments HIV 1/2 4TH GEN, RFLX CONF (test NON-REACTIVE code = 3514) ACUTE HEPATITIS [id number] 00:00:00 Test Item Value Reference Range Interpretation Comments HEPATITIS A IgM (test code = NON-REACTIVE 19356) HEPATITIS B CORE IgM (test code NON-REACTIVE = 3044) HEPATITIS B SURF AG (test code = NON-REACTIVE 8771) HEPATITIS C ANTIBODY (test code NON-REACTIVE = 2607) INTERPRETATION HEPATITIS A: (NOTE) (test code = 2552) INTERPRETATION HEPATITIS B: (NOTE) (test code = 37372) INTERPRETATION HEPATITIS C: (NOTE) (test code = 04064) SARS-CoV-2 (COVID-19) by RT-PCR (HIGH RISK)2021-04-04 00:00:00 Test Item Value Reference Range Interpretation Comments SARS-CoV-2 INTERPRETATION (test NEGATIVE code = 48757) SOURCE (test code = 74662) NOT SPECIFIED SARS-CoV-2 (COVID-19) by RT-PCR (HIGH RISK)2021-04-04 00:00:00 Test Item Value Reference Range Interpretation Comments SARS-CoV-2 INTERPRETATION (test NEGATIVE code = 83299) SOURCE (test code = 43935) NOT SPECIFIED SARS-CoV-2 (COVID-19) by RT-PCR (HIGH RISK)2021-04-04 00:00:00 Test Item Value Reference Range Interpretation Comments SARS-CoV-2 INTERPRETATION (test NEGATIVE code = 19240) SOURCE (test code = 13439) NOT SPECIFIED CBC W/AUTO [id number] 00:00:00 Test Item Value Reference Range Interpretation Comments WBC (test code = 1001) 4.4 K/UL RBC (test code = 1002) 4.82 M/UL HEMOGLOBIN (test code = 1003) 14.5 G/DL HEMATOCRIT (test code = 1004) 41.8 % MCV (test code = 1005) 86.7 fL MCH (test code = 1006) 30.1 PG MCHC (test code = 1007) 34.7 G/DL RDW (test code = 1038) 12.7 % NEUTROPHILS (test code = 1008) 58.7 % LYMPHOCYTES (test code = 1010) 29.9 % MONOCYTES (test code = 1011) 8.2 % EOSINOPHILS (test code = 1012) 1.8 % BASOPHILS (test code = 1013) 0.9 % IMMATURE GRANULOCYTES (test 0.5 % code = 1036) NUCLEATED RBCS (test code = 0.0 /100WBC'S 1065) PLATELET COUNT (test code = 255 K/UL 1015) ABSOLUTE NEUTROPHILS (test code 2.59 K/UL = 1066) ABSOLUTE LYMPHOCYTES (test code 1.32 K/UL = 1067) ABSOLUTE MONOCYTES (test code = 0.36 K/UL 1068) ABSOLUTE EOSINOPHILS (test code 0.08 K/UL = 1040) ABSOLUTE BASOPHILS (test code = 0.04 K/UL 1069) ABS IMMATURE GRANULOCYTES (test 0.02 K/UL code = 1020) ABS NUCLEATED RBCS (test code = 0.00 K/UL 82439) CBC W/AUTO [id number] 00:00:00 Test Item Value Reference Range Interpretation Comments WBC (test code = 1001) 4.4 K/UL RBC (test code = 1002) 4.82 M/UL HEMOGLOBIN (test code = 1003) 14.5 G/DL HEMATOCRIT (test code = 1004) 41.8 % MCV (test code = 1005) 86.7 fL MCH (test code = 1006) 30.1 PG MCHC (test code = 1007) 34.7 G/DL RDW (test code = 1038) 12.7 % NEUTROPHILS (test code = 1008) 58.7 % LYMPHOCYTES (test code = 1010) 29.9 % MONOCYTES (test code = 1011) 8.2 % EOSINOPHILS (test code = 1012) 1.8 % BASOPHILS (test code = 1013) 0.9 % IMMATURE GRANULOCYTES (test 0.5 % code = 1036) NUCLEATED RBCS (test code = 0.0 /100WBC'S 1065) PLATELET COUNT (test code = 255 K/UL 1015) ABSOLUTE NEUTROPHILS (test code 2.59 K/UL = 1066) ABSOLUTE LYMPHOCYTES (test code 1.32 K/UL = 1067) ABSOLUTE MONOCYTES (test code = 0.36 K/UL 1068) ABSOLUTE EOSINOPHILS (test code 0.08 K/UL = 1040) ABSOLUTE BASOPHILS (test code = 0.04 K/UL 1069) ABS IMMATURE GRANULOCYTES (test 0.02 K/UL code = 1020) ABS NUCLEATED RBCS (test code = 0.00 K/UL 51703) CBC W/AUTO [id number] 00:00:00 Test Item Value Reference Range Interpretation Comments WBC (test code = 1001) 4.4 K/UL RBC (test code = 1002) 4.82 M/UL HEMOGLOBIN (test code = 1003) 14.5 G/DL HEMATOCRIT (test code = 1004) 41.8 % MCV (test code = 1005) 86.7 fL MCH (test code = 1006) 30.1 PG MCHC (test code = 1007) 34.7 G/DL RDW (test code = 1038) 12.7 % NEUTROPHILS (test code = 1008) 58.7 % LYMPHOCYTES (test code = 1010) 29.9 % MONOCYTES (test code = 1011) 8.2 % EOSINOPHILS (test code = 1012) 1.8 % BASOPHILS (test code = 1013) 0.9 % IMMATURE GRANULOCYTES (test 0.5 % code = 1036) NUCLEATED RBCS (test code = 0.0 /100WBC'S 1065) PLATELET COUNT (test code = 255 K/UL 1015) ABSOLUTE NEUTROPHILS (test code 2.59 K/UL = 1066) ABSOLUTE LYMPHOCYTES (test code 1.32 K/UL = 1067) ABSOLUTE MONOCYTES (test code = 0.36 K/UL 1068) ABSOLUTE EOSINOPHILS (test code 0.08 K/UL = 1040) ABSOLUTE BASOPHILS (test code = 0.04 K/UL 1069) ABS IMMATURE GRANULOCYTES (test 0.02 K/UL code = 1020) ABS NUCLEATED RBCS (test code = 0.00 K/UL 02782) HEMOGLOBIN [id number] 00:00:00 Test Item Value Reference Range Interpretation Comments HEMOGLOBIN A1c (test code = 19040) 6.0 % HEMOGLOBIN [id number] 00:00:00 Test Item Value Reference Range Interpretation Comments HEMOGLOBIN A1c (test code = 76516) 6.0 % HEMOGLOBIN [id number] 00:00:00 Test Item Value Reference Range Interpretation Comments HEMOGLOBIN A1c (test code = 28975) 6.0 % LIPID [id number] 00:00:00 Test Item Value Reference Range Interpretation Comments CHOLESTEROL (test code = 2210) 234 MG/DL TRIGLYCERIDES (test code = 2232) 287 MG/DL HDL CHOLESTEROL (test code = 2220) 67 MG/DL CALC LDL CHOL (test code = 2237) 123 MG/DL RISK RATIO LDL/HDL (test code = 1.84 RATIO 2238) LIPID [id number] 00:00:00 Test Item Value Reference Range Interpretation Comments CHOLESTEROL (test code = 2210) 234 MG/DL TRIGLYCERIDES (test code = 2232) 287 MG/DL HDL CHOLESTEROL (test code = 2220) 67 MG/DL CALC LDL CHOL (test code = 2237) 123 MG/DL RISK RATIO LDL/HDL (test code = 1.84 RATIO 2238) COMPREHENSIVE METABOLIC [id number] 00:00:00 Test Item Value Reference Range Interpretation Comments GLUCOSE (test code = 2217) 99 MG/DL BUN (test code = 2208) 10 MG/DL CREATININE (test code = 2214) 0.45 MG/DL eGFR AMER. (test code 127 ML/MIN/1.73 = 57271) eGFR NON- AMER. (test 110 ML/MIN/1.73 code = 61665) CALC BUN/CREAT (test code = 22 RATIO 2235) SODIUM (test code = 2231) 142 MEQ/L POTASSIUM (test code = 2228) 4.4 MEQ/L CHLORIDE (test code = 2215) 103 MEQ/L CARBON DIOXIDE (test code = 30 MEQ/L 2206) CALCIUM (test code = 2209) 10.2 MG/DL PROTEIN, TOTAL (test code = 7.6 G/DL 2228) ALBUMIN (test code = 2201) 4.9 G/DL CALC GLOBULIN (test code = 2.7 G/DL 2240) CALC A/G RATIO (test code = 1.8 RATIO 2234) BILIRUBIN, TOTAL (test code = <0.2 MG/DL 2206) ALKALINE PHOSPHATASE (test 81 U/L code = 2204) AST (test code = 2218) 25 U/L ALT (test code = 2219) 44 U/L COMPREHENSIVE METABOLIC [id number] 00:00:00 Test Item Value Reference Range Interpretation Comments GLUCOSE (test code = 2217) 99 MG/DL BUN (test code = 2208) 10 MG/DL CREATININE (test code = 2214) 0.45 MG/DL eGFR AMER. (test code 127 ML/MIN/1.73 = 18384) eGFR NON- AMER. (test 110 ML/MIN/1.73 code = 49081) CALC BUN/CREAT (test code = 22 RATIO 2235) SODIUM (test code = 2231) 142 MEQ/L POTASSIUM (test code = 2228) 4.4 MEQ/L CHLORIDE (test code = 2215) 103 MEQ/L CARBON DIOXIDE (test code = 30 MEQ/L 2205) CALCIUM (test code = 2209) 10.2 MG/DL PROTEIN, TOTAL (test code = 7.6 G/DL 2228) ALBUMIN (test code = 2201) 4.9 G/DL CALC GLOBULIN (test code = 2.7 G/DL 2240) CALC A/G RATIO (test code = 1.8 RATIO 2234) BILIRUBIN, TOTAL (test code = <0.2 MG/DL 2206) ALKALINE PHOSPHATASE (test 81 U/L code = 2204) AST (test code = 2218) 25 U/L ALT (test code = 2219) 44 U/L [id number] 00:00:00 Test Item Value Reference Range Interpretation Comments TSH, THIRD GENERATION (test code 0.974 UIU/ML = 2821) [id number] 00:00:00 Test Item Value Reference Range Interpretation Comments TSH, THIRD GENERATION (test code 0.974 UIU/ML = 2821) [id number] 00:00:00 Test Item Value Reference Range Interpretation Comments TSH, THIRD GENERATION (test code 0.974 UIU/ML = 2821) VITAMIN D, 25 [id number] 00:00:00 Test Item Value Reference Range Interpretation Comments VITAMIN D, 25 OH (test code = 4958) 17 NG/ML VITAMIN D, 25 [id number] 00:00:00 Test Item Value Reference Range Interpretation Comments VITAMIN D, 25 OH (test code = 4958) 17 NG/ML CBC W/AUTO [id number] 00:00:00 Test Item Value Reference Range Interpretation Comments WBC (test code = 1001) 4.4 K/UL RBC (test code = 1002) 4.82 M/UL HEMOGLOBIN (test code = 1003) 14.5 G/DL HEMATOCRIT (test code = 1004) 41.8 % MCV (test code = 1005) 86.7 fL MCH (test code = 1006) 30.1 PG MCHC (test code = 1007) 34.7 G/DL RDW (test code = 1038) 12.7 % NEUTROPHILS (test code = 1008) 58.7 % LYMPHOCYTES (test code = 1010) 29.9 % MONOCYTES (test code = 1011) 8.2 % EOSINOPHILS (test code = 1012) 1.8 % BASOPHILS (test code = 1013) 0.9 % IMMATURE GRANULOCYTES (test 0.5 % code = 1036) NUCLEATED RBCS (test code = 0.0 /100WBC'S 1065) PLATELET COUNT (test code = 255 K/UL 1015) ABSOLUTE NEUTROPHILS (test code 2.59 K/UL = 1066) ABSOLUTE LYMPHOCYTES (test code 1.32 K/UL = 1067) ABSOLUTE MONOCYTES (test code = 0.36 K/UL 1068) ABSOLUTE EOSINOPHILS (test code 0.08 K/UL = 1040) ABSOLUTE BASOPHILS (test code = 0.04 K/UL 1069) ABS IMMATURE GRANULOCYTES (test 0.02 K/UL code = 1020) ABS NUCLEATED RBCS (test code = 0.00 K/UL 17991) CBC W/AUTO [id number] 00:00:00 Test Item Value Reference Range Interpretation Comments WBC (test code = 1001) 4.4 K/UL RBC (test code = 1002) 4.82 M/UL HEMOGLOBIN (test code = 1003) 14.5 G/DL HEMATOCRIT (test code = 1004) 41.8 % MCV (test code = 1005) 86.7 fL MCH (test code = 1006) 30.1 PG MCHC (test code = 1007) 34.7 G/DL RDW (test code = 1038) 12.7 % NEUTROPHILS (test code = 1008) 58.7 % LYMPHOCYTES (test code = 1010) 29.9 % MONOCYTES (test code = 1011) 8.2 % EOSINOPHILS (test code = 1012) 1.8 % BASOPHILS (test code = 1013) 0.9 % IMMATURE GRANULOCYTES (test 0.5 % code = 1036) NUCLEATED RBCS (test code = 0.0 /100WBC'S 1065) PLATELET COUNT (test code = 255 K/UL 1015) ABSOLUTE NEUTROPHILS (test code 2.59 K/UL = 1066) ABSOLUTE LYMPHOCYTES (test code 1.32 K/UL = 1067) ABSOLUTE MONOCYTES (test code = 0.36 K/UL 1068) ABSOLUTE EOSINOPHILS (test code 0.08 K/UL = 1040) ABSOLUTE BASOPHILS (test code = 0.04 K/UL 1069) ABS IMMATURE GRANULOCYTES (test 0.02 K/UL code = 1020) ABS NUCLEATED RBCS (test code = 0.00 K/UL 91391) HEMOGLOBIN [id number] 00:00:00 Test Item Value Reference Range Interpretation Comments HEMOGLOBIN A1c (test code = 15533) 6.0 % HEMOGLOBIN [id number] 00:00:00 Test Item Value Reference Range Interpretation Comments HEMOGLOBIN A1c (test code = 05103) 6.0 % LIPID [id number] 00:00:00 Test Item Value Reference Range Interpretation Comments CHOLESTEROL (test code = 2210) 234 MG/DL TRIGLYCERIDES (test code = 2232) 287 MG/DL HDL CHOLESTEROL (test code = 2220) 67 MG/DL CALC LDL CHOL (test code = 2237) 123 MG/DL RISK RATIO LDL/HDL (test code = 1.84 RATIO 2238) COMPREHENSIVE METABOLIC [id number] 00:00:00 Test Item Value Reference Range Interpretation Comments GLUCOSE (test code = 2217) 99 MG/DL BUN (test code = 2208) 10 MG/DL CREATININE (test code = 2214) 0.45 MG/DL eGFR AMER. (test code 127 ML/MIN/1.73 = 87070) eGFR NON- AMER. (test 110 ML/MIN/1.73 code = 18092) CALC BUN/CREAT (test code = 22 RATIO 2235) SODIUM (test code = 2231) 142 MEQ/L POTASSIUM (test code = 2228) 4.4 MEQ/L CHLORIDE (test code = 2215) 103 MEQ/L CARBON DIOXIDE (test code = 30 MEQ/L 2205) CALCIUM (test code = 2209) 10.2 MG/DL PROTEIN, TOTAL (test code = 7.6 G/DL 2228) ALBUMIN (test code = 2201) 4.9 G/DL CALC GLOBULIN (test code = 2.7 G/DL 2240) CALC A/G RATIO (test code = 1.8 RATIO 2234) BILIRUBIN, TOTAL (test code = <0.2 MG/DL 2206) ALKALINE PHOSPHATASE (test 81 U/L code = 2204) AST (test code = 2218) 25 U/L ALT (test code = 2219) 44 U/L [id number] 00:00:00 Test Item Value Reference Range Interpretation Comments TSH, THIRD GENERATION (test code 0.974 UIU/ML = 2821) [id number] 00:00:00 Test Item Value Reference Range Interpretation Comments TSH, THIRD GENERATION (test code 0.974 UIU/ML = 2821) VITAMIN D, 25 [id number] 00:00:00 Test Item Value Reference Range Interpretation Comments VITAMIN D, 25 OH (test code = 4958) 17 NG/ML QUANTIFERON TB GOLD PLUS [ADDED]2020-12-26 00:00:00 Test Item Value Reference Range Interpretation Comments QUANTIFERON TB GOLD PLUS (test NEGATIVE code = 67311) TB1-NIL (test code = 79982) 0.21 IU/ML TB2-NIL (test code = 01343) 0.22 IU/ML MITOGEN-NIL (test code = 50154) 9.21 IU/ML NIL (test code = 04632) 0.02 IU/ML QUANTIFERON TB GOLD PLUS [ADDED]2020-12-26 00:00:00 Test Item Value Reference Range Interpretation Comments QUANTIFERON TB GOLD PLUS (test NEGATIVE code = 09515) TB1-NIL (test code = 46511) 0.21 IU/ML TB2-NIL (test code = 43658) 0.22 IU/ML MITOGEN-NIL (test code = 50867) 9.21 IU/ML NIL (test code = 57146) 0.02 IU/ML VITAMIN [id number] 00:00:00 Test Item Value Reference Range Interpretation Comments VITAMIN B-12 (test code = 2840) 1161 PG/ML VITAMIN [id number] 00:00:00 Test Item Value Reference Range Interpretation Comments VITAMIN B-12 (test code = 2840) 1161 PG/ML VITAMIN [id number] 00:00:00 Test Item Value Reference Range Interpretation Comments VITAMIN B-12 (test code = 2840) 1161 PG/ML SEDIMENTATION [id number] 00:00:00 Test Item Value Reference Range Interpretation Comments SEDIMENTATION RATE (test code = 21 MM/HOUR 1017) SEDIMENTATION [id number] 00:00:00 Test Item Value Reference Range Interpretation Comments SEDIMENTATION RATE (test code = 21 MM/HOUR 1017) C-REACTIVE [id number] 00:00:00 Test Item Value Reference Range Interpretation Comments C-REACTIVE PROTEIN (test code = <0.3 MG/DL 3513) C-REACTIVE [id number] 00:00:00 Test Item Value Reference Range Interpretation Comments C-REACTIVE PROTEIN (test code = <0.3 MG/DL 3513) VITAMIN [id number] 00:00:00 Test Item Value Reference Range Interpretation Comments VITAMIN B-12 (test code = 2840) 1161 PG/ML VITAMIN [id number] 00:00:00 Test Item Value Reference Range Interpretation Comments VITAMIN B-12 (test code = 2840) 1161 PG/ML SEDIMENTATION [id number] 00:00:00 Test Item Value Reference Range Interpretation Comments SEDIMENTATION RATE (test code = 21 MM/HOUR 1017) C-REACTIVE [id number] 00:00:00 Test Item Value Reference Range Interpretation Comments C-REACTIVE PROTEIN (test code = <0.3 MG/DL 3513) HEMOGLOBIN [id number] 00:00:00 Test Item Value Reference Range Interpretation Comments HEMOGLOBIN A1c (test code = 37724) 5.7 % HEMOGLOBIN [id number] 00:00:00 Test Item Value Reference Range Interpretation Comments HEMOGLOBIN A1c (test code = 07027) 5.7 % HEMOGLOBIN [id number] 00:00:00 Test Item Value Reference Range Interpretation Comments HEMOGLOBIN A1c (test code = 80797) 5.7 % CBC W/AUTO [id number] 00:00:00 Test Item Value Reference Range Interpretation Comments WBC (test code = 1001) 4.7 K/UL RBC (test code = 1002) 4.59 M/UL HEMOGLOBIN (test code = 1003) 14.1 G/DL HEMATOCRIT (test code = 1004) 40.0 % MCV (test code = 1005) 87.1 fL MCH (test code = 1006) 30.7 PG MCHC (test code = 1007) 35.3 G/DL RDW (test code = 1038) 12.1 % NEUTROPHILS (test code = 1008) 51.1 % LYMPHOCYTES (test code = 1010) 38.4 % MONOCYTES (test code = 1011) 8.1 % EOSINOPHILS (test code = 1012) 1.3 % BASOPHILS (test code = 1013) 1.1 % PLATELET COUNT (test code = 1015) 277 K/UL CBC W/AUTO [id number] 00:00:00 Test Item Value Reference Range Interpretation Comments WBC (test code = 1001) 4.7 K/UL RBC (test code = 1002) 4.59 M/UL HEMOGLOBIN (test code = 1003) 14.1 G/DL HEMATOCRIT (test code = 1004) 40.0 % MCV (test code = 1005) 87.1 fL MCH (test code = 1006) 30.7 PG MCHC (test code = 1007) 35.3 G/DL RDW (test code = 1038) 12.1 % NEUTROPHILS (test code = 1008) 51.1 % LYMPHOCYTES (test code = 1010) 38.4 % MONOCYTES (test code = 1011) 8.1 % EOSINOPHILS (test code = 1012) 1.3 % BASOPHILS (test code = 1013) 1.1 % PLATELET COUNT (test code = 1015) 277 K/UL CBC W/AUTO [id number] 00:00:00 Test Item Value Reference Range Interpretation Comments WBC (test code = 1001) 4.7 K/UL RBC (test code = 1002) 4.59 M/UL HEMOGLOBIN (test code = 1003) 14.1 G/DL HEMATOCRIT (test code = 1004) 40.0 % MCV (test code = 1005) 87.1 fL MCH (test code = 1006) 30.7 PG MCHC (test code = 1007) 35.3 G/DL RDW (test code = 1038) 12.1 % NEUTROPHILS (test code = 1008) 51.1 % LYMPHOCYTES (test code = 1010) 38.4 % MONOCYTES (test code = 1011) 8.1 % EOSINOPHILS (test code = 1012) 1.3 % BASOPHILS (test code = 1013) 1.1 % PLATELET COUNT (test code = 1015) 277 K/UL VITAMIN D, 25 [id number] 00:00:00 Test Item Value Reference Range Interpretation Comments VITAMIN D, 25 OH (test code = 4958) 17 NG/ML VITAMIN D, 25 [id number] 00:00:00 Test Item Value Reference Range Interpretation Comments VITAMIN D, 25 OH (test code = 4958) 17 NG/ML HEMOGLOBIN [id number] 00:00:00 Test Item Value Reference Range Interpretation Comments HEMOGLOBIN A1c (test code = 42763) 5.7 % HEMOGLOBIN [id number] 00:00:00 Test Item Value Reference Range Interpretation Comments HEMOGLOBIN A1c (test code = 61293) 5.7 % CBC W/AUTO [id number] 00:00:00 Test Item Value Reference Range Interpretation Comments WBC (test code = 1001) 4.7 K/UL RBC (test code = 1002) 4.59 M/UL HEMOGLOBIN (test code = 1003) 14.1 G/DL HEMATOCRIT (test code = 1004) 40.0 % MCV (test code = 1005) 87.1 fL MCH (test code = 1006) 30.7 PG MCHC (test code = 1007) 35.3 G/DL RDW (test code = 1038) 12.1 % NEUTROPHILS (test code = 1008) 51.1 % LYMPHOCYTES (test code = 1010) 38.4 % MONOCYTES (test code = 1011) 8.1 % EOSINOPHILS (test code = 1012) 1.3 % BASOPHILS (test code = 1013) 1.1 % PLATELET COUNT (test code = 1015) 277 K/UL CBC W/AUTO [id number] 00:00:00 Test Item Value Reference Range Interpretation Comments WBC (test code = 1001) 4.7 K/UL RBC (test code = 1002) 4.59 M/UL HEMOGLOBIN (test code = 1003) 14.1 G/DL HEMATOCRIT (test code = 1004) 40.0 % MCV (test code = 1005) 87.1 fL MCH (test code = 1006) 30.7 PG MCHC (test code = 1007) 35.3 G/DL RDW (test code = 1038) 12.1 % NEUTROPHILS (test code = 1008) 51.1 % LYMPHOCYTES (test code = 1010) 38.4 % MONOCYTES (test code = 1011) 8.1 % EOSINOPHILS (test code = 1012) 1.3 % BASOPHILS (test code = 1013) 1.1 % PLATELET COUNT (test code = 1015) 277 K/UL VITAMIN D, 25 [id number] 00:00:00 Test Item Value Reference Range Interpretation Comments VITAMIN D, 25 OH (test code = 4958) 17 NG/ML COMPREHENSIVE METABOLIC [id number] 00:00:00 Test Item Value Reference Range Interpretation Comments GLUCOSE (test code = 2217) 114 MG/DL BUN (test code = 2208) 17 MG/DL CREATININE (test code = 2214) 0.54 MG/DL eGFR AMER. (test code 121 ML/MIN/1.73 = 96629) eGFR NON- AMER. (test 104 ML/MIN/1.73 code = 75602) CALC BUN/CREAT (test code = 31 RATIO 2235) SODIUM (test code = 2231) 142 MEQ/L POTASSIUM (test code = 2228) 4.2 MEQ/L CHLORIDE (test code = 2215) 103 MEQ/L CARBON DIOXIDE (test code = 28 MEQ/L 2206) CALCIUM (test code = 2209) 9.7 MG/DL PROTEIN, TOTAL (test code = 7.6 G/DL 222) ALBUMIN (test code = 2201) 4.8 G/DL CALC GLOBULIN (test code = 2.8 G/DL 2240) CALC A/G RATIO (test code = 1.7 RATIO 2234) BILIRUBIN, TOTAL (test code = 0.4 MG/DL 2206) ALKALINE PHOSPHATASE (test 82 U/L code = 2204) AST (test code = 2218) 19 U/L ALT (test code = 2219) 21 U/L COMPREHENSIVE METABOLIC [id number] 00:00:00 Test Item Value Reference Range Interpretation Comments GLUCOSE (test code = 2217) 114 MG/DL BUN (test code = 2208) 17 MG/DL CREATININE (test code = 2214) 0.54 MG/DL eGFR AMER. (test code 121 ML/MIN/1.73 = 20489) eGFR NON- AMER. (test 104 ML/MIN/1.73 code = 95486) CALC BUN/CREAT (test code = 31 RATIO 2235) SODIUM (test code = 2231) 142 MEQ/L POTASSIUM (test code = 2228) 4.2 MEQ/L CHLORIDE (test code = 2215) 103 MEQ/L CARBON DIOXIDE (test code = 28 MEQ/L 2205) CALCIUM (test code = 2209) 9.7 MG/DL PROTEIN, TOTAL (test code = 7.6 G/DL 2228) ALBUMIN (test code = 2201) 4.8 G/DL CALC GLOBULIN (test code = 2.8 G/DL 2240) CALC A/G RATIO (test code = 1.7 RATIO 2234) BILIRUBIN, TOTAL (test code = 0.4 MG/DL 2206) ALKALINE PHOSPHATASE (test 82 U/L code = 2204) AST (test code = 2218) 19 U/L ALT (test code = 2219) 21 U/L LIPID [id number] 00:00:00 Test Item Value Reference Range Interpretation Comments CHOLESTEROL (test code = 2210) 412 MG/DL TRIGLYCERIDES (test code = 2232) 276 MG/DL HDL CHOLESTEROL (test code = 2220) 67 MG/DL CALC LDL CHOL (test code = 2237) 296 MG/DL RISK RATIO LDL/HDL (test code = 4.42 RATIO 2238) LIPID [id number] 00:00:00 Test Item Value Reference Range Interpretation Comments CHOLESTEROL (test code = 2210) 412 MG/DL TRIGLYCERIDES (test code = 2232) 276 MG/DL HDL CHOLESTEROL (test code = 2220) 67 MG/DL CALC LDL CHOL (test code = 2237) 296 MG/DL RISK RATIO LDL/HDL (test code = 4.42 RATIO 2238) HEMOGLOBIN [id number] 00:00:00 Test Item Value Reference Range Interpretation Comments HEMOGLOBIN A1c (test code = 39082) 5.8 % HEMOGLOBIN [id number] 00:00:00 Test Item Value Reference Range Interpretation Comments HEMOGLOBIN A1c (test code = 32706) 5.8 % HEMOGLOBIN [id number] 00:00:00 Test Item Value Reference Range Interpretation Comments HEMOGLOBIN A1c (test code = 29956) 5.8 % COMPREHENSIVE METABOLIC [id number] 00:00:00 Test Item Value Reference Range Interpretation Comments GLUCOSE (test code = 2217) 114 MG/DL BUN (test code = 2208) 17 MG/DL CREATININE (test code = 2214) 0.54 MG/DL eGFR AMER. (test code 121 ML/MIN/1.73 = 58931) eGFR NON- AMER. (test 104 ML/MIN/1.73 code = 23158) CALC BUN/CREAT (test code = 31 RATIO 2235) SODIUM (test code = 2231) 142 MEQ/L POTASSIUM (test code = 2228) 4.2 MEQ/L CHLORIDE (test code = 2215) 103 MEQ/L CARBON DIOXIDE (test code = 28 MEQ/L 2205) CALCIUM (test code = 2209) 9.7 MG/DL PROTEIN, TOTAL (test code = 7.6 G/DL 2228) ALBUMIN (test code = 2201) 4.8 G/DL CALC GLOBULIN (test code = 2.8 G/DL 2239) CALC A/G RATIO (test code = 1.7 RATIO 2234) BILIRUBIN, TOTAL (test code = 0.4 MG/DL 2206) ALKALINE PHOSPHATASE (test 82 U/L code = 2204) AST (test code = 2218) 19 U/L ALT (test code = 2219) 21 U/L LIPID [id number] 00:00:00 Test Item Value Reference Range Interpretation Comments CHOLESTEROL (test code = 2210) 412 MG/DL TRIGLYCERIDES (test code = 2232) 276 MG/DL HDL CHOLESTEROL (test code = 2220) 67 MG/DL CALC LDL CHOL (test code = 2237) 296 MG/DL RISK RATIO LDL/HDL (test code = 4.42 RATIO 2238) HEMOGLOBIN [id number] 00:00:00 Test Item Value Reference Range Interpretation Comments HEMOGLOBIN A1c (test code = 30101) 5.8 % HEMOGLOBIN [id number] 00:00:00 Test Item Value Reference Range Interpretation Comments HEMOGLOBIN A1c (test code = 70470) 5.8 % SCR MAMM BILATERAL BARRON CAD [id number] 08:14:02 - SCR MAMM BILATERAL BARRON CAD DIGITALBILATERAL DIGITAL SCREENING MAMMOGRAM 3D/2D WITH CAD: 04/13/2020 CLINICAL: Asymptomatic. Digital breast tomosynthesis was performed in addition to routine CC and MLOviews. Current mammographic images were evaluated by either a [employer] M-Vu or a [employer] CAD (computer aided detection system). No prior exams were available for comparison. There are scattered fibroglandular tissues in both breasts. There are benign calcifications in the right breast. No suspicious mass, architectural distortion, malignant type calcification, or lymph node abnormality detected. IMPRESSION: BENIGNThere is no mammographic evidence of malignancy. Resume annual screening mammography in one year. Marcin Hawley M.D. et/penrad:04/20/2020 08:14:02 Patient Coordinator: Lisa Tellez MM, [facility] Mammographyletter sent: BIRADS 1-2 Normal Mammogram BI-RADS: 2 BenignH. PYLORI (BREATH)2020-02-11 00:00:00 Test Item Value Reference Range Interpretation Comments H. PYLORI (BREATH) (test code = NEGATIVE 74267) H. PYLORI (BREATH)2020-02-11 00:00:00 Test Item Value Reference Range Interpretation Comments H. PYLORI (BREATH) (test code = NEGATIVE 57797) H. PYLORI (BREATH)2020-02-11 00:00:00 Test Item Value Reference Range Interpretation Comments H. PYLORI (BREATH) (test code = NEGATIVE 92049) CBC W/AUTO [id number] 00:00:00 Test Item Value Reference Range Interpretation Comments WBC (test code = 1001) 4.2 K/UL RBC (test code = 1002) 4.83 M/UL HEMOGLOBIN (test code = 1003) 14.6 G/DL HEMATOCRIT (test code = 1004) 42.0 % MCV (test code = 1005) 87.0 fL MCH (test code = 1006) 30.2 PG MCHC (test code = 1007) 34.8 G/DL RDW (test code = 1038) 12.3 % NEUTROPHILS (test code = 1008) 50.0 % LYMPHOCYTES (test code = 1010) 41.2 % MONOCYTES (test code = 1011) 6.4 % EOSINOPHILS (test code = 1012) 1.2 % BASOPHILS (test code = 1013) 1.2 % PLATELET COUNT (test code = 1015) 220 K/UL CBC W/AUTO [id number] 00:00:00 Test Item Value Reference Range Interpretation Comments WBC (test code = 1001) 4.2 K/UL RBC (test code = 1002) 4.83 M/UL HEMOGLOBIN (test code = 1003) 14.6 G/DL HEMATOCRIT (test code = 1004) 42.0 % MCV (test code = 1005) 87.0 fL MCH (test code = 1006) 30.2 PG MCHC (test code = 1007) 34.8 G/DL RDW (test code = 1038) 12.3 % NEUTROPHILS (test code = 1008) 50.0 % LYMPHOCYTES (test code = 1010) 41.2 % MONOCYTES (test code = 1011) 6.4 % EOSINOPHILS (test code = 1012) 1.2 % BASOPHILS (test code = 1013) 1.2 % PLATELET COUNT (test code = 1015) 220 K/UL CBC W/AUTO [id number] 00:00:00 Test Item Value Reference Range Interpretation Comments WBC (test code = 1001) 4.2 K/UL RBC (test code = 1002) 4.83 M/UL HEMOGLOBIN (test code = 1003) 14.6 G/DL HEMATOCRIT (test code = 1004) 42.0 % MCV (test code = 1005) 87.0 fL MCH (test code = 1006) 30.2 PG MCHC (test code = 1007) 34.8 G/DL RDW (test code = 1038) 12.3 % NEUTROPHILS (test code = 1008) 50.0 % LYMPHOCYTES (test code = 1010) 41.2 % MONOCYTES (test code = 1011) 6.4 % EOSINOPHILS (test code = 1012) 1.2 % BASOPHILS (test code = 1013) 1.2 % PLATELET COUNT (test code = 1015) 220 K/UL HEMOGLOBIN [id number] 00:00:00 Test Item Value Reference Range Interpretation Comments HEMOGLOBIN A1c (test code = 12693) 5.7 % HEMOGLOBIN [id number] 00:00:00 Test Item Value Reference Range Interpretation Comments HEMOGLOBIN A1c (test code = 14257) 5.7 % HEMOGLOBIN [id number] 00:00:00 Test Item Value Reference Range Interpretation Comments HEMOGLOBIN A1c (test code = 30661) 5.7 % LIPID [id number] 00:00:00 Test Item Value Reference Range Interpretation Comments CHOLESTEROL (test code = 2210) 414 MG/DL TRIGLYCERIDES (test code = 2232) 170 MG/DL HDL CHOLESTEROL (test code = 2220) 74 MG/DL CALC LDL CHOL (test code = 2237) 306 MG/DL RISK RATIO LDL/HDL (test code = 4.14 RATIO 2238) LIPID [id number] 00:00:00 Test Item Value Reference Range Interpretation Comments CHOLESTEROL (test code = 2210) 414 MG/DL TRIGLYCERIDES (test code = 2232) 170 MG/DL HDL CHOLESTEROL (test code = 2220) 74 MG/DL CALC LDL CHOL (test code = 2237) 306 MG/DL RISK RATIO LDL/HDL (test code = 4.14 RATIO 2238) COMPREHENSIVE METABOLIC [id number] 00:00:00 Test Item Value Reference Range Interpretation Comments GLUCOSE (test code = 2217) 101 MG/DL BUN (test code = 2208) 13 MG/DL CREATININE (test code = 2214) 0.56 MG/DL eGFR AMER. (test code 119 ML/MIN/1.73 = 08212) eGFR NON- AMER. (test 103 ML/MIN/1.73 code = 06232) CALC BUN/CREAT (test code = 23 RATIO 2235) SODIUM (test code = 2231) 142 MEQ/L POTASSIUM (test code = 2228) 4.2 MEQ/L CHLORIDE (test code = 2215) 103 MEQ/L CARBON DIOXIDE (test code = 29 MEQ/L 2205) CALCIUM (test code = 2209) 10.1 MG/DL PROTEIN, TOTAL (test code = 7.7 G/DL 2228) ALBUMIN (test code = 2201) 4.7 G/DL CALC GLOBULIN (test code = 3.0 G/DL 2240) CALC A/G RATIO (test code = 1.6 RATIO 2234) BILIRUBIN, TOTAL (test code = 0.6 MG/DL 220) ALKALINE PHOSPHATASE (test 82 U/L code = 2204) AST (test code = 2218) 29 U/L ALT (test code = 2219) 32 U/L COMPREHENSIVE METABOLIC [id number] 00:00:00 Test Item Value Reference Range Interpretation Comments GLUCOSE (test code = 2217) 101 MG/DL BUN (test code = 2208) 13 MG/DL CREATININE (test code = 2214) 0.56 MG/DL eGFR AMER. (test code 119 ML/MIN/1.73 = 37972) eGFR NON- AMER. (test 103 ML/MIN/1.73 code = 83698) CALC BUN/CREAT (test code = 23 RATIO 2235) SODIUM (test code = 2231) 142 MEQ/L POTASSIUM (test code = 2228) 4.2 MEQ/L CHLORIDE (test code = 2215) 103 MEQ/L CARBON DIOXIDE (test code = 29 MEQ/L 2205) CALCIUM (test code = 2209) 10.1 MG/DL PROTEIN, TOTAL (test code = 7.7 G/DL 2228) ALBUMIN (test code = 2201) 4.7 G/DL CALC GLOBULIN (test code = 3.0 G/DL 2240) CALC A/G RATIO (test code = 1.6 RATIO 2234) BILIRUBIN, TOTAL (test code = 0.6 MG/DL 7) ALKALINE PHOSPHATASE (test 82 U/L code = 2204) AST (test code = 2218) 29 U/L ALT (test code = 2219) 32 U/L [id number] 00:00:00 Test Item Value Reference Range Interpretation Comments TSH, THIRD GENERATION (test code 1.320 UIU/ML = 2821) [id number] 00:00:00 Test Item Value Reference Range Interpretation Comments TSH, THIRD GENERATION (test code 1.320 UIU/ML = 2821) [id number] 00:00:00 Test Item Value Reference Range Interpretation Comments TSH, THIRD GENERATION (test code 1.320 UIU/ML = 2821) CBC W/AUTO [id number] 00:00:00 Test Item Value Reference Range Interpretation Comments WBC (test code = 1001) 4.2 K/UL RBC (test code = 1002) 4.83 M/UL HEMOGLOBIN (test code = 1003) 14.6 G/DL HEMATOCRIT (test code = 1004) 42.0 % MCV (test code = 1005) 87.0 fL MCH (test code = 1006) 30.2 PG MCHC (test code = 1007) 34.8 G/DL RDW (test code = 1038) 12.3 % NEUTROPHILS (test code = 1008) 50.0 % LYMPHOCYTES (test code = 1010) 41.2 % MONOCYTES (test code = 1011) 6.4 % EOSINOPHILS (test code = 1012) 1.2 % BASOPHILS (test code = 1013) 1.2 % PLATELET COUNT (test code = 1015) 220 K/UL CBC W/AUTO [id number] 00:00:00 Test Item Value Reference Range Interpretation Comments WBC (test code = 1001) 4.2 K/UL RBC (test code = 1002) 4.83 M/UL HEMOGLOBIN (test code = 1003) 14.6 G/DL HEMATOCRIT (test code = 1004) 42.0 % MCV (test code = 1005) 87.0 fL MCH (test code = 1006) 30.2 PG MCHC (test code = 1007) 34.8 G/DL RDW (test code = 1038) 12.3 % NEUTROPHILS (test code = 1008) 50.0 % LYMPHOCYTES (test code = 1010) 41.2 % MONOCYTES (test code = 1011) 6.4 % EOSINOPHILS (test code = 1012) 1.2 % BASOPHILS (test code = 1013) 1.2 % PLATELET COUNT (test code = 1015) 220 K/UL HEMOGLOBIN [id number] 00:00:00 Test Item Value Reference Range Interpretation Comments HEMOGLOBIN A1c (test code = 47614) 5.7 % HEMOGLOBIN [id number] 00:00:00 Test Item Value Reference Range Interpretation Comments HEMOGLOBIN A1c (test code = 45118) 5.7 % LIPID [id number] 00:00:00 Test Item Value Reference Range Interpretation Comments CHOLESTEROL (test code = 2210) 414 MG/DL TRIGLYCERIDES (test code = 2232) 170 MG/DL HDL CHOLESTEROL (test code = 2220) 74 MG/DL CALC LDL CHOL (test code = 2237) 306 MG/DL RISK RATIO LDL/HDL (test code = 4.14 RATIO 2238) COMPREHENSIVE METABOLIC [id number] 00:00:00 Test Item Value Reference Range Interpretation Comments GLUCOSE (test code = 2217) 101 MG/DL BUN (test code = 2208) 13 MG/DL CREATININE (test code = 2214) 0.56 MG/DL eGFR AMER. (test code 119 ML/MIN/1.73 = 80366) eGFR NON- AMER. (test 103 ML/MIN/1.73 code = 25390) CALC BUN/CREAT (test code = 23 RATIO 2235) SODIUM (test code = 2231) 142 MEQ/L POTASSIUM (test code = 2228) 4.2 MEQ/L CHLORIDE (test code = 2215) 103 MEQ/L CARBON DIOXIDE (test code = 29 MEQ/L 2205) CALCIUM (test code = 2209) 10.1 MG/DL PROTEIN, TOTAL (test code = 7.7 G/DL 2228) ALBUMIN (test code = 2201) 4.7 G/DL CALC GLOBULIN (test code = 3.0 G/DL 2240) CALC A/G RATIO (test code = 1.6 RATIO 4) BILIRUBIN, TOTAL (test code = 0.6 MG/DL 2206) ALKALINE PHOSPHATASE (test 82 U/L code = 2204) AST (test code = 2218) 29 U/L ALT (test code = 2219) 32 U/L [id number] 00:00:00 Test Item Value Reference Range Interpretation Comments TSH, THIRD GENERATION (test code 1.320 UIU/ML = 2821) [id number] 00:00:00 Test Item Value Reference Range Interpretation Comments TSH, THIRD GENERATION (test code 1.320 UIU/ML = 2821)
--- NOTE | 2023-06-21 14:02 | RAD REPORT ---
EXAM DESCRIPTION: RAD - Hand Right 3 View - 06/21/2023 1:52 pm CLINICAL HISTORY: SMASH INJURY COMPARISON: <Comparisons> FINDINGS: Mild soft tissue swelling affects the third finger. No fractures seen.
--- NOTE | 2023-06-21 15:18 | ER ---
Nurse's Notes [facility] Name: Dennis Stark Age: 62 yrs Sex: Female : 1960 Arrival Date: 06/21/2023 Time: 12:56 Bed DX4 Private MD: Diagnosis: Contusion of hand Presentation: 06/21 13:19 Chief complaint: Patient states: a box of tiles fell on her right hand, injuring her ap3 middle, ring and thumb. Coronavirus screen: At this time, the client does not indicate any symptoms associated with coronavirus-19. Ebola Screen: No symptoms or risks identified at this time. Initial Sepsis Screen: Does the patient meet any 2 criteria? No. Patient's initial sepsis screen is negative. Does the patient have a suspected source of infection? No. Patient's initial sepsis screen is negative. Risk Assessment: Do you want to hurt yourself or someone else? Patient reports no desire to harm self or others. Onset of symptoms was June 21, 2023. 13:19 Method Of Arrival: Ambulatory ap3 13:19 Acuity: BOBBY 4 ap3 Triage Assessment: 13:21 General: Appears in no apparent distress. Behavior is calm, cooperative, appropriate ap3 for age. Pain: Complains of pain in right thumb, right middle finger and right ring finger Pain currently is 5 out of 10 on a pain scale. Pain began suddenly. Neuro: Level of Consciousness is awake, alert, obeys commands, Oriented to person, place, time, situation, Appropriate for age. Cardiovascular: Patient's skin is warm and dry. Respiratory: Airway is patent Respiratory effort is even, unlabored, Respiratory pattern is regular, symmetrical. Musculoskeletal: Reports pain in right thumb, right middle finger and right ring finger. Injury Description: Crush injury sustained to right hand. Historical: - Allergies: 13:20 PENICILLINS; ap3 - Home Meds: 13:20 pregabalin Oral [Active]; ap3 - PMHx: 13:20 Hyperlipidemia; ap3 - Immunization history:: Client reports receiving the 2nd dose of the Covid vaccine. - Social history:: Smoking status: Patient denies any tobacco usage or history of. Screenin:22 [facility] ED Fall Risk Assessment (Adult) History of falling in the last 3 months, ap3 including since admission No falls in past 3 months (0 pts). Abuse screen: Denies threats or abuse. Nutritional screening: No deficits noted. Tuberculosis screening: No symptoms or risk factors identified. Assessment: 15:05 General: Appears in no apparent distress. Behavior is calm, cooperative. Pain: Pain hb currently is 5 out of 10 on a pain scale. Neuro: Level of Consciousness is awake, alert, obeys commands, Oriented to person, place, time, situation. Cardiovascular: Patient's skin is warm and dry. Respiratory: Respiratory effort is even, unlabored, Respiratory pattern is regular, symmetrical. GI: No signs and/or symptoms were reported involving the gastrointestinal system. : No signs and/or symptoms were reported regarding the genitourinary system. EENT: No signs and/or symptoms were reported regarding the EENT system. Derm: Skin is pink, warm \T\ dry. Musculoskeletal: Reports right hand pain. Vital Signs: 13:19 BP 132 / 70; Pulse 65; Resp 17; Temp 98.1; Pulse Ox 100% ; Weight 63.5 kg; Pain 5/10; ap3 13:19 Pain Scale: Adult ap3 ED Course: 12:57 Patient arrived in ED. rg4 13:20 Triage completed. ap3 13:22 Arm band placed on right wrist. ap3 13:30 Jeni Sorensen FNP-C is PHCP. snw 13:30 Mayank White MD is Attending Physician. snw 13:54 XRAY Hand RIGHT 3 View In Process Unspecified. EDMS 15:04 Kamala Ohara RN is Primary Nurse. hb 15:05 Patient has correct armband on for positive identification. hb 15:05 No provider procedures requiring assistance completed. Patient did not have IV access hb during this emergency room visit. Administered Medications: No medications were administered Medication: 15:05 VIS not applicable for this client. hb Outcome: 15:18 Discharge ordered by . snw 15:43 Discharged to home ambulatory, hb 15:43 Condition: stable 15:43 Discharge instructions given to patient, Instructed on discharge instructions, follow up and referral plans. medication usage, Demonstrated understanding of instructions, follow-up care, medications, 15:43 Patient left the ED. hb Signatures: Dispatcher [employer] EDWV Jeni Sorensen FNP-C [employer]G OPERATOR-Csnw Kamala Ohara RN RN Dannielle Dexter rg4 Rain Bolton, RN RN ap3
--- NOTE | 2023-06-21 15:18 | EDPHYS ---
Physician Documentation [facility] Name: Dennis Stark Age: 62 yrs Sex: Female : 1960 Arrival Date: 06/21/2023 Time: 12:56 Bed DX4 Private MD: MERCEDES Physician Mayank White HPI: 06/21 15:15 This 62 yrs old Female presents to ER via Ambulatory with complaints of Hand snw Injury. 15:15 The patient or guardian reports pain. The complaints affect the right hand diffusely, snw palmar aspect of distal phalanx of right ring finger and palmar aspect of distal phalanx of right middle finger. Context: The problem was sustained at a [facility]. Onset: The symptoms/episode began/occurred suddenly, today. The patient has not experienced similar symptoms in the past. pt was looking at tile, the box fell to her right hand crushing fingertip area . Historical: - Allergies: 13:20 PENICILLINS; ap3 - Home Meds: 13:20 pregabalin Oral [Active]; ap3 - PMHx: 13:20 Hyperlipidemia; ap3 - Immunization history:: Client reports receiving the 2nd dose of the Covid vaccine. - Social history:: Smoking status: Patient denies any tobacco usage or history of. ROS: 15:14 Constitutional: Negative for fever, chills, and weight loss, Eyes: Negative for injury, snw pain, redness, and discharge, ENT: Negative for injury, pain, and discharge, Neck: Negative for injury, pain, and swelling, Cardiovascular: Negative for chest pain, palpitations, and edema, Respiratory: Negative for shortness of breath, cough, wheezing, and pleuritic chest pain, Abdomen/GI: Negative for abdominal pain, nausea, vomiting, diarrhea, and constipation, Back: Negative for injury and pain, : Negative for injury, bleeding, discharge, and swelling, Skin: Negative for injury, rash, and discoloration, Neuro: Negative for headache, weakness, numbness, tingling, and seizure, Psych: Negative for depression, anxiety, suicide ideation, homicidal ideation, and hallucinations, 15:14 MS/extremity: Positive for injury or acute deformity, contusion, pain, swelling, of the right hand, Exam: 15:12 Constitutional: This is a well developed, well nourished patient who is awake, alert, snw and in no acute distress. Head/Face: Normocephalic, atraumatic. Eyes: Pupils equal round and reactive to light, extra-ocular motions intact. Lids and lashes normal. Conjunctiva and sclera are non-icteric and not injected. Cornea within normal limits. Periorbital areas with no swelling, redness, or edema. ENT: Nares patent. No nasal discharge, no septal abnormalities noted. Tympanic membranes are normal and external auditory canals are clear. Oropharynx with no redness, swelling, or masses, exudates, or evidence of obstruction, uvula midline. Mucous membranes moist. Chest/axilla: Normal chest wall appearance and motion. Nontender with no deformity. No lesions are appreciated. Cardiovascular: Regular rate and rhythm with a normal S1 and S2. No gallops, murmurs, or rubs. Normal PMI, no JVD. No pulse deficits. Respiratory: Lungs have equal breath sounds bilaterally, clear to auscultation and percussion. No rales, rhonchi or wheezes noted. No increased work of breathing, no retractions or nasal flaring. Abdomen/GI: Soft, non-tender, with normal bowel sounds. No distension or tympany. No guarding or rebound. No evidence of tenderness throughout. Skin: Warm, dry with normal turgor. Normal color with no rashes, no lesions, and no evidence of cellulitis. Neuro: Awake and alert, GCS 15, oriented to person, place, time, and situation. Cranial nerves II-XII grossly intact. Motor strength 5/5 in all extremities. Sensory grossly intact. Cerebellar exam normal. Normal gait. Psych: Awake, alert, with orientation to person, place and time. Behavior, mood, and affect are within normal limits. 15:12 Musculoskeletal/extremity: Extremities: grossly normal except: noted in the right hand: ROM: no acute changes, Circulation is intact in all extremities. Sensation intact. pads of 3rd and 4th fingertips swollen, tender, purple. Vital Signs: 13:19 BP 132 / 70; Pulse 65; Resp 17; Temp 98.1; Pulse Ox 100% ; Weight 63.5 kg; Pain 5/10; ap3 13:19 Pain Scale: Adult ap3 MDM: 14:03 Patient medically screened. snw 15:16 Differential diagnosis: open fracture, closed fracture, contusion. Data reviewed: vital snw signs, nurses notes. I considered the following discharge prescriptions or medication management in the emergency department Medications were administered in the Emergency Department. See MAR. Historians other than the Patient: Spouse/Significant Other: . Counseling: I had a detailed discussion with the patient and/or guardian regarding the historical points, exam findings, and any diagnostic results supporting the discharge/admit diagnosis, radiology results, the need for outpatient follow up, for definitive care, to return to the emergency department if symptoms worsen or persist or if there are any questions or concerns that arise at home. Special discussion: Based on the history and exam findings, there is no indication for further emergent testing or inpatient evaluation. I discussed with the patient/guardian the need to see the primary care provider for further evaluation of the symptoms. 06/21 13:23 Order name: XRAY Hand RIGHT 3 View; Complete Time: 14:03 ap3 Administered Medications: No medications were administered Disposition Summary: 06/21/23 15:18 Discharge Ordered Notes: Location: Home snw Condition: Stable snw Diagnosis - Contusion of hand snw Followup: snw - With: Emergency Department - When: As needed - Reason: Worsening of condition Followup: snw - With: Private Physician - When: 2 - 3 days - Reason: Recheck today's complaints, Continuance of care, Re-evaluation by your physician Discharge Instructions: - Discharge Summary Sheet snw - Hand Contusion snw - RICE Therapy for Routine Care of Injuries snw - How to Use Cold Therapy snw Forms: - Work release form snw - Medication Reconciliation Form snw - Thank You Letter snw - Antibiotic Education snw - Prescription Opioid Use snw - Patient Portal Instructions snw - Leadership Thank You Letter snw Prescriptions: - Diclofenac Sodium 75 mg Oral Tablet Sustained Release - take 1 tablet ORAL route 2 times per day; 30 tablet; Refills: 0, Product snw Selection Permitted - Tramadol 50 mg Oral Tablet - take 1 tablet ORAL route every 8 hours as needed; 12 tablet; Refills: 0, snw Product Selection Permitted Signatures: Dispatcher [employer] Jeni Dumont FNP-C COLOR BLENDER-Rain Kruger RN RN ap3
[2023-06-21 15:51] VITALS: BP 132/70; TEMP 98.1; O2SAT 100
== END 2023-06-21 15:43 | disposition home or self-care (01) ==
LOC: ER 12:56
DX: S60.221A Contusion of right hand, initial encounter (principal); W19.XXXA Unspecified fall, initial encounter; E78.5 Hyperlipidemia, unspecified; Z88.0 Allergy status to penicillin
CPT/HCPCS: 99282

== ENCOUNTER 2024-02-10 11:36 | Emergency (ER) | payer OTHER ==
[2024-02-10] MEDS ORDERED: FLUORESCEIN SODIUM 1 MG/WRAP ONE (13:27)
[2024-02-10] MEDS ORDERED: TETRACAINE HCL 0.5% 4ML OPTH ONE (13:27)
--- NOTE | 2024-02-10 14:05 | ER ---
Nurse's Notes [facility] Name: Dennis Stark Age: 63 yrs Sex: Female : 1960 Arrival Date: 02/10/2024 Time: 11:36 Bed 1 Private MD: Diagnosis: Unspecified acute conjunctivitis, left eye Presentation: 02/09 12:19 Chief complaint: Patient states: Pt c/o left eye swelling, pain, and blurred vision x 2 jl7 days. Pt denies injury to eye. Pt states eye feels gritty and 'looks like jello inside'. Coronavirus screen: At this time, the client does not indicate any symptoms associated with coronavirus-19. Ebola Screen: No symptoms or risks identified at this time. Initial Sepsis Screen: Does the patient meet any 2 criteria? No. Patient's initial sepsis screen is negative. Does the patient have a suspected source of infection? No. Patient's initial sepsis screen is negative. Risk Assessment: Do you want to hurt yourself or someone else? Patient reports no desire to harm self or others. Onset of symptoms was February 08, 2024. 12:19 Method Of Arrival: Ambulatory jl7 12:19 Acuity: BOBBY 4 jl7 Triage Assessment: 12:22 General: Appears in no apparent distress. Behavior is calm, cooperative. Pain: jl7 Complains of pain in left eye. EENT: Eyes are tearing on outer aspect of conjuctiva of left eye, iris of left eye and inner aspect of conjunctiva of left eye Swelling noted under left eye. Neuro: Level of Consciousness is awake, alert, obeys commands, Oriented to person, place, time, situation, Moves all extremities. Full function Gait is steady, Speech is normal. Cardiovascular: Capillary refill < 3 seconds Patient's skin is warm and dry. Respiratory: Airway is patent Respiratory effort is even, unlabored, Respiratory pattern is regular, symmetrical. GI: No signs and/or symptoms were reported involving the gastrointestinal system. : No signs and/or symptoms were reported regarding the genitourinary system. Derm: No signs and/or symptoms reported regarding the dermatologic system. Musculoskeletal: No signs and/or symptoms reported regarding the musculoskeletal system. Historical: - Allergies: 12:22 PENICILLINS; jl7 - Home Meds: 12:22 pregabalin 150 mg oral capsule 3 times per day [Active]; jl7 - PMHx: 12:22 Hyperlipidemia; jl7 - Immunization history:: Adult Immunizations unknown. - Infectious Disease History:: Denies. - Social history:: Smoking status: Patient denies any tobacco usage or history of. Screenin:46 [facility] ED Fall Risk Assessment (Adult) History of falling in the last 3 months, ld1 including since admission No falls in past 3 months (0 pts) Confusion or Disorientation No (0 pts) Intoxicated or Sedated No (0 pts) Impaired Gait No (0 pts) Mobility Assist Device Used No (0 pt) Altered Elimination No (0 pt) Score/Fall Risk Level 0 - 2 = Low Risk Oriented to surroundings, Maintained a safe environment, Educated pt \T\ family on fall prevention, incl call for assistance when getting out of bed, Assessed \T\ reinforced patient's understanding of fall precautions, Provided non-skid footwear, Hourly rounding (assess needs \T\ fall precautionary measures) done, Used ambulatory aids as needed (educated on \T\ assisted with), Used gait belt as appropriate. Abuse screen: Denies threats or abuse. Denies injuries from another. Nutritional screening: No deficits noted. Tuberculosis screening: No symptoms or risk factors identified. Assessment: 13:45 General: Appears in no apparent distress. comfortable, Behavior is calm, cooperative, ld1 appropriate for age. Pain: Complains of pain in inner aspect of conjunctiva of left eye and iris of left eye and outer aspect of conjuctiva of left eye and left eye Pain does not radiate. Pain currently is 7 out of 10 on a pain scale. Quality of pain is described as sharp, shooting, throbbing, Pain began 2-3 days ago. Is continuous. Neuro: Level of Consciousness is awake, alert, obeys commands, Oriented to person, place, time, situation, Appropriate for age. Cardiovascular: Capillary refill < 3 seconds Patient's skin is warm and dry. Respiratory: Airway is patent Respiratory effort is even, unlabored. GI: Abdomen is round non-distended. : No signs and/or symptoms were reported regarding the genitourinary system. EENT: Reports pain in iris of left eye and left eye. Derm: No signs and/or symptoms reported regarding the dermatologic system. Musculoskeletal: No signs and/or symptoms reported regarding the musculoskeletal system. Vital Signs: 12:19 BP 109 / 69; Pulse 72; Resp 16; Temp 97.9(TE); Pulse Ox 98% on R/A; Weight 62.14 kg; jl7 Height 5 ft. 1 in. ; Pain 5/10; 12:19 Body Mass Index 25.89 (62.14 kg, 154.94 cm) jl7 12:19 Pain Scale: Adult jl7 Visual Acuity: 14:12 Left Eye Visual acuity 20/25, ; Right Eye Visual acuity 20/20, ; Both Eyes Visual ld1 acuity 20/20; Without Lenses; ED Course: 11:43 Patient arrived in ED. mg5 12:22 Triage completed. jl7 12:24 Arm band placed on left wrist. jl7 13:00 Escobar Nogueira NP is PHCP. pm1 13:00 Earl Arambula MD is Attending Physician. pm1 13:45 Malaika Zepeda RN is Primary Nurse. ld1 13:46 Patient has correct armband on for positive identification. Bed in low position. Call ld1 light in reach. Side rails up X2. case monitor on. Pulse ox on. Door closed. Noise minimized. 14:04 Rey Michael MD is Referral Physician. pm1 14:12 No provider procedures requiring assistance completed. Patient did not have IV access ld1 during this emergency room visit. Administered Medications: 13:52 Drug: Tetracaine Ophthalmic Drops 0.5 % 1 drops Ophthalmic once Route: Ophthalmic; ld1 Site: left eye; 14:09 Not Given (Other Intervention Used): vigamoxdrops 0.5 % 1 drops Ophthalmic once; left ld1 eye Medication: 13:46 VIS not applicable for this client. ld1 Outcome: 14:04 Discharge ordered by . pm1 14:12 Discharged to home ambulatory, ld1 14:12 Condition: stable 14:12 Discharge instructions given to patient, Instructed on discharge instructions, follow up and referral plans. medication usage, Demonstrated understanding of instructions, follow-up care, medications, Prescriptions given X 1, 14:13 Patient left the ED. ld1 Signatures: Escobar Nogueira NP AMMONIA NITRATE OPERATOR pm1 Toni Betts RN RN jl7 Malaika Zepeda RN RN ld1 Lilia Starkey 5
--- NOTE | 2024-02-10 14:05 | EDPHYS ---
Physician Documentation [facility] Name: Dennis Stark Age: 63 yrs Sex: Female : 1960 Arrival Date: 02/10/2024 Time: 11:36 Bed 1 Private MD: ED Physician Earl Arambula HPI: 02/09 13:24 This 63 yrs old Female presents to ER via Ambulatory with complaints of Eye pm1 Problem. 13:24 The patient is experiencing matting or discharge, The patient sustained None. to the pm1 left eye, caused by an unknown mechanism. Onset: The symptoms/episode began/occurred today. Aggravated by nothing. Alleviated by removing matting and discharge. Associated signs and symptoms: Pertinent negatives: None. Patient wears glasses. Severity of symptoms: in the emergency department the symptoms have improved Pain is currently a 0 / 10. The patient has experienced similar episodes in the past, a few times. The patient has not recently seen a physician. 13:24 Patient reported after cleaning the house. Denies any foreign body sensation in her eye.pm1 Historical: - Allergies: 12:22 PENICILLINS; jl7 - Home Meds: 12:22 pregabalin 150 mg oral capsule 3 times per day [Active]; jl7 - PMHx: 12:22 Hyperlipidemia; jl7 - Immunization history:: Adult Immunizations unknown. - Infectious Disease History:: Denies. - Social history:: Smoking status: Patient denies any tobacco usage or history of. ROS: 13:24 Constitutional: Negative for fever, chills, and weight loss, pm1 13:24 ENT: Negative for injury, pain, and discharge, Cardiovascular: Negative for chest pain, pm1 palpitations, and edema, Respiratory: Negative for shortness of breath, cough, wheezing, and pleuritic chest pain, MS/Extremity: Negative for injury and deformity, Skin: Negative for injury, rash, and discoloration, Neuro: Negative for headache, weakness, numbness, tingling, and seizure, 13:24 Eyes: Positive for discharge, matting, Negative for pain, vision loss, visual disturbance, 13:24 All other systems are negative, Exam: 14:02 Visual Acuity: Visual acuity is within normal limits. pm1 14:02 Constitutional: This is a well developed, well nourished patient who is awake, alert, and in no acute distress. Head/Face: Normocephalic, atraumatic. 14:02 Skin: Warm, dry with normal turgor. Normal color with no rashes, no lesions, and no evidence of cellulitis. 14:02 Eyes: Periorbital structures: appear normal, Pupils: no acute changes, Extraocular movements: no acute changes, Conjunctiva: no acute changes, Corneas: no acute changes, abrasion, is not appreciated, foreign body, is not appreciated, a fluorescein strip employed to appreciate the findings, 14:02 Neuro: Exam negative for acute changes, Orientation: is normal, Mentation: is normal, Gait: is steady, at a normal pace, without difficulty, Vital Signs: 12:19 BP 109 / 69; Pulse 72; Resp 16; Temp 97.9(TE); Pulse Ox 98% on R/A; Weight 62.14 kg; jl7 Height 5 ft. 1 in. ; Pain 5/10; 12:19 Body Mass Index 25.89 (62.14 kg, 154.94 cm) [facility] 12:19 Pain Scale: Adult [facility] Visual Acuity: 14:12 Left Eye Visual acuity 20/25, ; Right Eye Visual acuity 20/20, ; Both Eyes Visual ld1 acuity 20/20; Without Lenses; MDM: 13:02 Patient medically screened. pm1 14:02 Data reviewed: vital signs. pm1 14:02 Differential diagnosis: Corneal abrasion of left eye. Foreign body in left eye. pm1 Infectious conjunctivitis in retina tear/detachment. 14:02 Care significantly affected by the following chronic conditions: Hyperlipidemia. pm1 14:02 Counseling: I had a detailed discussion with the patient and/or guardian regarding the pm1 historical points, exam findings, and any diagnostic results supporting the discharge/admit diagnosis, the need for outpatient follow up, an opthalmologist, to return to the emergency department if symptoms worsen or persist or if there are any questions or concerns that arise at home. 02/09 13:19 Order name: Visual Acuity; Complete Time: 13:45 pm1 02/09 13:24 Order name: Eye Tray; Complete Time: 13:26 pm1 02/09 13:24 Order name: Fluoresene Opth strip; Complete Time: 13:26 pm1 Administered Medications: 13:52 Drug: Tetracaine Ophthalmic Drops 0.5 % 1 drops Ophthalmic once Route: Ophthalmic; ld1 Site: left eye; 14:09 Not Given (Other Intervention Used): vigamoxdrops 0.5 % 1 drops Ophthalmic once; left ld1 eye Disposition: 19:37 Co-signature as Attending Physician, Earl Arambula MD I reviewed the patient's care rn provided by the Advanced Practice Provider and agree with the diagnosis and treatment plan. Disposition Summary: 02/10/24 14:04 Discharge Ordered Notes: Location: Home pm1 Problem: new pm1 Symptoms: have improved pm1 Condition: Stable pm1 Diagnosis - Unspecified acute conjunctivitis, left eye pm1 Followup: pm1 - With: Emergency Department - When: As needed - Reason: Worsening of condition Followup: pm1 - With: Rey Michael MD - When: 1 - 2 days - Reason: Recheck today's complaints, Continuance of care, Re-evaluation by your physician Discharge Instructions: - Discharge Summary Sheet pm1 - How to Use Eye Drops and Eye Ointments pm1 - Bacterial Conjunctivitis, Adult, [id number] pm1 Forms: - Medication Reconciliation Form pm1 - Antibiotic Education pm1 - Prescription Opioid Use pm1 - Patient Portal Instructions pm1 - Leadership Thank You Letter pm1 Prescriptions: - Vigamox 0.5 % Ophthalmic Drops - instill 1 drop OPHTHALMIC route every 8 hours for 7 days; 5 milliliter; pm1 Refills: 0, Product Selection Permitted Signatures: Earl Arambula MD MD rn Marinas, Patrick, VALERIA MANAGER [employer] pm1 Toni Betts RN RN jl7 Malaika Zepeda RN RN ld1
[2024-02-10 15:52] VITALS: BP 109/69; TEMP 97.9; O2SAT 98
== END 2024-02-10 14:13 | disposition home or self-care (01) ==
LOC: ER 11:36
DX: H10.32 Unspecified acute conjunctivitis, left eye (principal)
CPT/HCPCS: 99284